=== PATIENT | female | born 1995 | race Caucasian/White ===

== ENCOUNTER → 2017-11-17 10:52 | Outpatient (CLI) | payer OTHER, MEDICAID, SELFPAY | PROVIDERS: Family Provider Family Medicine; PCP Family Medicine | DX: H53.133 Sudden visual loss, bilateral (principal) | CPT/HCPCS: 93225; 93226 ==

== ENCOUNTER 2017-12-15 17:06 | Emergency (ER) | payer OTHER, MEDICAID, SELFPAY ==
[2017-12-15 17:07] VITALS: BP 144/88; PULSE 109; RESP 24; TEMP 36.6; O2SAT 100; BMI 22.8
[2017-12-15 18:14] LABS: Absolute Lymphocyte Count 4.53 X10^3/ul (0.83-4.51); Absolute Neutrophil Count 6.1 X10^3/uL (2.0-7.7); Basophil# 0.07 X10^3/uL; Basophil% 0.6 % (0-1); Eosinophil# 0.09 X10^3/uL; Eosinophils% 0.8 % (0-5); Hematocrit 34.9 % (37-47); Hemoglobin 11.9 g/dl (12.0-15.0); Lymphocyte # 4.53 X10^3/ul (4.0); Lymphocyte % 38.1 % (19-41); Mean Corp Hgb Conc 34.1 g/gl (32-36); Mean Corpuscular Hgb 28.9 pg (27.0-32.0); Mean Corpuscular Volume 84.7 fL (81-99); Mean Platelet Vol. 8.6 fl (6.2-12.0); Monocyte# 1.11 X10^3/uL; Monocyte% 9.3 % (0-10); Neutrophil # 6.08 X10^3/uL (2.7-7.7); Neutrophil % 51.1 % (47-70); POSITIVE COUNT NO; POSITIVE DIFFERENTIAL NO; POSITIVE MORPHOLOGY NO; Platelet Count 387 K/mm3 (150-450); RBC Distribution Width CV 12.8 % (11.6-14.6); RBC Distribution Width SD 39.1 fl (35.1-43.9); Red Blood Count 4.12 M/mm3 (4.2-5.4); White Blood Count 11.9 K/mm3 (4.4-11.0)
[2017-12-15 18:25] LABS: Color, Urine Yellow (Yellow); Glucose, Dipstick Normal (Normal); Leukocyte Esterase-Dipstick 500 /ul (Negative); Nitrite-Dipstick Positive (Negative); Occult Blood-Urine 25 /ul (Negative); Protein-Dipstick 30 mg/dl (Negative); Specific Gravity, Urine 1.025 (1.002-1.030); Urine Bilirubin Dipstick Negative (Negative); Urine Clarity Cloudy (Clear); Urine Urobilinogen 1 mg/dl (Normal)
[2017-12-15 18:26] LABS: Anion Gap 11 (5-15); BUN 14 mg/dL (7-18); BUN/Creat Ratio 18.3 RATIO (10-20); Calcium,Total 9.1 mg/dL (8.5-10.1); Chloride 105 mmol/L (98-107); Creatinine, Serum 0.76 mg/dL (0.55-1.02); EST Glomerular Filtration Rate 100 mL/min (>60); Est Glom Filt Rate - Afr Amer 121 mL/min (>60); Estimated Creatinine Clearance 87.62 ml/min; Glucose 60 mg/dL (74-106); Potassium 3.1 mmol/L (3.5-5.1); Sodium Level 137 mmol/L (136-145)
[2017-12-15 18:33] LABS: Ketone-Dipstick 150 mg/dl (Negative); Pregnancy, Serum, hCG Quali. NEGATIVE Negative (0-9 Nonpreg)
[2017-12-15 18:42] LABS: Bacteria 2+ /hpf (None Seen); Mucous, Urine 3+ /hpf (<or=2+); Red Blood Cells-Urine 0-5 SEEN /hpf (0-5); Squamous Epithelial Cells - UA 0-5 SEEN /hpf (5-10); White Blood Cells 50-100 SEEN /hpf (0-5); Yeast-Urine RARE /hpf (None Seen)
[2017-12-15 18:50] LABS: Amphetamine Urine VISTA POSITIVE (<1000 ng/mL); Barbiturate Urine VISTA NEGATIVE (< 200 ng/mL); Benzodiazepine Urine VISTA NEGATIVE (< 200 ng/mL); Cocaine Urine VISTA NEGATIVE (< 300 ng/mL); Ecstacy Urine VISTA POSITIVE (< 500 ng/mL); Methadone Urine VISTA NEGATIVE (< 300 ng/mL); PCP Urine VISTA NEGATIVE (< 25 ng/mL); THC Urine VISTA POSITIVE (< 50 ng/mL); Vista UDS pH Range 5
--- NOTE | 2017-12-15 19:00 | ED.RN ---
LINDA CALLED FROM CRISIS. SHE STATED SHE WILL BE HERE TO SEE PT SOON.
--- NOTE | 2017-12-15 21:04 | ED.VISSUMM ---
- ER Visit Summary Date of Service: 12/15/17 Chief Complaint: Depression History of Present Illness: The patient is a 22 F who presents with depression that became worse today. Patient states she was having thoughts of suicide today. Patient denies any specific plan for suicide. Patient states she became upset because she has relapsed on drugs. Patient states her dad came over today and took her child. Patient states this upset her and caused her to become depressed. Patient denies any auditory or visual hallucinations. Physical Examination: Vital signs are stable. Patient is afebrile. Patient is in no acute distress. Oral mucosa is pink and moist. Heart was regular and tachycardic. Lungs are clear and equal bilaterally. Cranial nerves II through XII are intact. There are no focal motor or sensory deficits noted. Patient has a depressed mood and flat affect. Patient is tearful on examination. Patient admits to suicidal ideations but denies any plan for suicide. Test Results: CBC showed a mild leukocytosis of 11.9. Potassium slightly low at 3.1. Urinalysis shows evidence of a urinary tract infection. Urine tox screen positive for opiates, amphetamines, MDMA, and THC. Serum alcohol level was normal. Emergency Department Course and Treatment: Patient was given a prescription for Bactrim. Crisis counselor was in to evaluate the patient. She was able to have the patient contract for safety. Patient will be discharged to the care of her family. Outpatient follow-up was arranged by the crisis counselor. Patient understood and was agreeable with the plan. All questions were answered. Disposition: Discharge home Impression: Depression, urinary tract infection, substance abuse This note was generated with [employer] dictation software. It may contain incorrect words, spelling, and punctuation that were not noted in review of the chart prior to signing ED Disposition - Plan for ED Patient: Disposition: Home or Assisted Living Chief Complaint: Suicidal Diagnosis: Depression, Substance abuse, Urinary tract infection Instructions: ED Depression, ED Drug Abuse General Prescriptions: Smz/Tmp Ds [Bactrim Ds] 1 tab PO BID #6 tab Referrals: Cirilo Saldivar MD [Primary Care Provider] -
[2017-12-15 21:12] VITALS: BP 115/91; PULSE 93; RESP 18; O2SAT 96
== END 2017-12-15 21:12 | disposition home or self-care (01) ==
PROVIDERS: Emergency Provider Emergency Medicine; Family Provider Family Medicine; PCP Family Medicine
DX: F31.9 Bipolar disorder, unspecified (principal); F41.9 Anxiety disorder, unspecified; N39.0 Urinary tract infection, site not specified; B96.89 Other specified bacterial agents as the cause of diseases classified elsewhere; F11.10 Opioid abuse, uncomplicated; F15.10 Other stimulant abuse, uncomplicated; F12.10 Cannabis abuse, uncomplicated; Z72.0 Tobacco use
CPT/HCPCS: 80048; 80307; 80320; 81001; 84703; 85025; 99283; G0480

== ENCOUNTER 2018-01-04 18:34 | Emergency (ER) | payer OTHER, MEDICAID, SELFPAY ==
[2018-01-04 18:35] VITALS: BP 121/69; PULSE 120; RESP 24; TEMP 37.1; O2SAT 99; BMI 21.0
--- NOTE | 2018-01-04 20:21 | ED.RN ---
Pt states she is tired of waiting,will go to another facility. pt left without being seen by a physician.
== END 2018-01-04 20:24 | disposition left against medical advice (07) ==
PROVIDERS: Emergency Provider Emergency Medicine; Family Provider Family Medicine; PCP Family Medicine
DX: R69 Illness, unspecified (principal)

== ENCOUNTER → 2018-01-26 17:37 | Outpatient (CLI) | payer OTHER, MEDICAID, SELFPAY ==
[2018-02-01 13:13] LABS: HPV Reflexed? NOT INDICATED
== END ==
PROVIDERS: Referring Provider Obstetrics & Gynecology; Visit Provider Obstetrics & Gynecology
DX: Z12.4 Encounter for screening for malignant neoplasm of cervix (principal)
CPT/HCPCS: 88175; G0145

== ENCOUNTER 2018-06-25 21:05 | Emergency (ER) | payer MEDICAID, SELFPAY ==
[2018-04-18 11:48] VITALS: BMI 20.7
[2018-06-25] VITALS (7 sets, daily range): BP systolic 106–120; BP diastolic 57–84; PULSE 78–102; RESP 9–20; TEMP 36.7; O2SAT 89–100; BMI 21.9
--- NOTE | 2018-06-25 21:07 | ED.VISSUMM ---
- ER Visit Summary Date of Service: 06/25/18 Chief Complaint: Heroin History of Present Illness: The patient is a 23 F who admits to heroin. Apparently she was somnolent and the boyfriend and mother called EMS, the Laxson was not given since the patient was mostly alert. I was able to communicate with her quite well. She denies any suicidal ideations. She denies fever or chills, this was inadvertent, apparently she has been struggling with addiction for the past 2 years. Physical Examination: As is my usual practice with overdoses a full physical examination was done. Patient has no heart murmur. She has no track sweeney on her antecubital regions. She has no skin rash or petechiae. She has clear lungs bilaterally she has a soft abdomen and a normal exam otherwise see template. Emergency Department Course and Treatment: Patient will be observed in the emergency department. When she is fully lucid and coherent she will be discharged in stable condition. I discussed with her the importance of getting treatment. Discharge stable condition Impression: Heroin abuse This note was generated with [employer] dictation software. It may contain incorrect words, spelling, and punctuation that were not noted in review of the chart prior to signing ED Disposition - Plan for ED Patient: Disposition: Home or Assisted Living Instructions: ED Overdose Accidental Referrals: Sly Liu MD [Primary Care Provider] - 3-5 Days
[2018-06-25] MEDS: Ondansetron 4 MG/2 ML Vial IV (21:22)
[2018-06-25] MEDS: Naloxone 0.4 MG/ML Syringe IV (21:23)
--- NOTE | 2018-06-25 21:26 | ED.RN ---
PT RESPIRATIONS IMPROVING. PT ABLE TO KEEP EYES OPEN LONGER. PT CALM AND COOPERATIVE. PT VERY APOLOGETIC
--- NOTE | 2018-06-25 21:55 | ED.RN ---
MOM AND FRIEND? AT THE BEDSIDE. PATIENT IS ALERT AND REMAINS TEARFUL.
--- NOTE | 2018-06-25 22:58 | ED.RN ---
patient is sating low 90's without o2 when she falls asleep. DR. PLAZA MADE AWARE AND SAID TO WATCH HER TILL MIDNIGHT.
--- NOTE | 2018-06-25 23:04 | ED.RN ---
PT UNABLE TO STAY AWAKE AND ALERT WHEN BEING SPOKEN TO. PT CLOSES EYES AND SLUMPS INTO BED. PT 02 DESATS 90-89% WHEN SLEEPING. PT AWAKENS EASILY TO VERBAL STIMULI. DR. PLAZA INFORMED AND ORDERS TO OBSERVE PT LONGER BEFORE DISCHARGING.
--- NOTE | 2018-06-25 23:07 | ED.RN ---
PT PLACED BACK ON NASAL CANNULA 2L AND SATTING 96%. WILL CONTINUE TO MONITOR.
--- NOTE | 2018-06-25 23:57 | ED.RN ---
I TRIED TO TAKE PATIENT OFF OF O2 AGAIN AND SHE DROPPED TO 89% ON RA WHEN SHE FELL BACK TO SLEEP. HER RESPS DROP TO 9 AT TIMES WHEN SHE IS SLEEPING TOO. WE WILL CONTINUE TO OBSERVE HER.
--- NOTE | 2018-06-25 23:59 | ED.RN ---
I TOLD PATIENT'S MOM TO GO AHEAD AND GO HOME AND WE WOULD CALL HER WHEN SHE IS ABLE TO BE DISCHARGED.
[2018-06-26 00:07] VITALS: BP 114/72; PULSE 75; RESP 15; O2SAT 99
[2018-06-26 01:04] VITALS: BP 102/69; PULSE 91; RESP 12; O2SAT 97
[2018-06-26 01:28] VITALS: O2SAT 88
[2018-06-26 01:29] VITALS: O2SAT 97
[2018-06-26 03:00] VITALS: BP 111/61; PULSE 93; RESP 16; O2SAT 94
--- NOTE | 2018-06-26 03:10 | ED.RN ---
PATIENT WAS ABLE TO WALK AROUND THE DEPARTMENT AND GO TO THE RESTROOM WITH STAND BY ASSISTANCE ONLY. SHE AMBULATED WELL. SHE DRESSED HERSELF, AND IS DRINKING APPLE JUICE. SHE IS ABLE TO STAY AWAKE IN HER ROOM. I BELIEVE SHE IS ABLE TO GO HOME. HER MOM IS ON HER WAY TO GET HER. DISCHARGE INSTRUCTIONS WERE GIVEN.
== END 2018-06-26 03:31 | disposition home or self-care (01) ==
LOC: ED 21:32
PROVIDERS: Emergency Provider Emergency Medicine; Family Provider Pediatrics; PCP Pediatrics
DX: F11.10 Opioid abuse, uncomplicated (principal)
CPT/HCPCS: 96374; 96375; 99284; J7030; A4216; J2310; J2405

== ENCOUNTER 2018-07-24 10:45 | Emergency (ER) | payer MEDICAID, SELFPAY ==
[2018-06-25 21:06] VITALS: BMI 21.9
[2018-07-24 10:45] VITALS: BP 105/57; PULSE 125; RESP 16; TEMP 36.6; O2SAT 100; BMI 19.5
[2018-07-24 10:47] VITALS: BP 105/57; PULSE 125; RESP 16; TEMP 36.6; O2SAT 100
--- NOTE | 2018-07-24 11:21 | CT_ITS ---
STUDY: CT ABDOMEN AND PELVIS WITHOUT CONTRAST REASON FOR EXAM: Female, 23 years old. Right flank pain. Painful urination. RADIATION DOSAGE (If Supplied By Facility): CTDIvol = ( 6.04 ) mGy, DLP = ( 295.97 ) mGycm TECHNIQUE: Transaxial images were obtained from the dome of the diaphragm to the symphysis pubis without oral contrast, and without intravenous contrast. Sagittal and coronal images were reconstructed. Individualized dose optimization techniques were used for this CT. COMPARISON: January 14, 2016 FINDINGS: The visualized lung bases are unremarkable. The visualized portions of the heart are within normal limits. There is hepatomegaly with diffuse hepatic enlargement. Normal gallbladder and extrahepatic biliary system. Normal spleen. Normal pancreas. Normal bilateral adrenal glands. There are 0.2 cm calcifications of the upper and lower pole of the right kidney. There is perinephric and periureteral stranding. Normal left kidney. There is 0.4 cm left pelvic calcification with phlebolith versus distal ureteral stone. Normal visualized stomach. Normal small intestine. Normal colon. The appendix is visualized and appears normal. Normal abdominal aorta. Normal inferior vena cava. Normal retroperitoneum. Normal urinary bladder. Normal visualized uterus. There is no free fluid in the abdomen or pelvis. There is tampon in the vagina. Normal abdominal wall. Normal osseous structures. CT/Abdomen/Pelvis without Cont IMPRESSION: Right renal stones with periureteral and perinephric stranding. Left pelvic calcification with phleboliths versus ureteral stone. Electronically Signed: Stiven Morel MD at 12:54 EDT , Service support ,
--- NOTE | 2018-07-24 11:24 | ED.DCSUM_ITS ---
- ER Visit Summary Date of Service: 07/24/18 Chief Complaint: Right flank pain History of Present Illness: The patient is a 23 F who presents with right flank pain that began yesterday. Patient states she has a history of kidney stones. Patient states this feels similar to prior kidney stones. Patient states her pain is sharp. Patient states nothing makes the pain better or worse. Patient admits to some nausea and vomiting. Patient states she has had approximately 10 episodes of vomiting. Patient denies any hematemesis or coffee-ground emesis. Patient also admits to watery diarrhea. Patient admits to some burning with urination but denies any hematuria. Patient denies any fevers. Physical Examination: Vital signs are stable. Patient is afebrile. Patient is in no acute distress. Oral mucosa is pink and moist. Neck is supple. Trachea is midline. There is no JVD noted. Heart was regular rate and rhythm. Lungs are clear and equal bilateral. Abdomen is soft. Bowel sounds are normal. There is some right upper quadrant tenderness. There is right CVA tenderness. There is no rebound or guarding noted. Cranial nerves II through XII are intact. There are no focal motor or sensory deficits noted. The remaining physical exam is within normal limits. Test Results: Urinalysis shows leukocyte esterase of 500, 50-100 white blood cells, and 2+ bacteria. Urine hCG was negative. CT scan of the abdomen and pelvis was obtained. There are right renal stones with periureteral and perinephric stranding. There is no ureteral calculi noted. Emergency Department Course and Treatment: Patient was given IV fluids, Toradol, and Zofran. Patient was feeling better on reevaluation. Patient was given a dose of Cipro here. Patient was given a prescription for Cipro. Patient was instructed to drink plenty of fluids. Patient was instructed to follow-up with her primary care physician in 5-7 days. Patient understood and was agreeable with the plan. All questions were answered. Disposition: Discharge home Impression: Pyelonephritis This note was generated with [employer] dictation software. It may contain incorrect words, spelling, and punctuation that were not noted in review of the chart prior to signing ED Disposition - Plan for ED Patient: Disposition: Home or Assisted Living Diagnosis: Pyelonephritis Instructions: ED Kidney Infec Female Prescriptions: Ciprofloxacin [Cipro] 500 mg PO BID #20 tab Referrals: Bakari Thornton DO [Primary Care Provider] - 3-5 Days
[2018-07-24 11:31] LABS: Mucous, Urine 0 SEEN /hpf (<or=2+)
[2018-07-24 11:33] LABS: Color, Urine Yellow (Yellow); Glucose, Dipstick Normal (Normal); Ketone-Dipstick 15 mg/dl (Negative); Leukocyte Esterase-Dipstick 500 /ul (Negative); Nitrite-Dipstick Positive (Negative); Occult Blood-Urine 150 /ul (Negative); Protein-Dipstick 500 mg/dl (Negative); Urine Bilirubin Dipstick Negative (Negative); Urine Clarity Clear (Clear); Urine Urobilinogen 1 mg/dl (Normal)
[2018-07-24 11:39] LABS: Bacteria 2+ /hpf (None Seen); Red Blood Cells-Urine 5-10 SEEN /hpf (0-5); White Blood Cells 50-100 SEEN /hpf (0-5)
[2018-07-24 11:40] LABS: Squamous Epithelial Cells - UA 0-5 SEEN /hpf (5-10)
[2018-07-24] MEDS: 0.9% Normal Saline 1,000 ML 250 ML IV (11:47)
[2018-07-24] MEDS: Ketorolac 30 MG/ML Syringe IV (11:47)
[2018-07-24] MEDS: Ondansetron 4 MG/2 ML Vial IV (11:47)
[2018-07-24 12:30] LABS: Pregnancy, Serum, hCG Quali. NEGATIVE Negative (0-9 Nonpreg)
[2018-07-24 14:28] VITALS: BP 106/61; PULSE 113; RESP 18; O2SAT 96
[2018-07-24] MEDS: Ciprofloxacin 250 MG Tablet 500 MG PO (14:29)
--- NOTE | 2018-07-24 14:31 | ED.RN ---
IV DC'ED, CATHETER INTACT, SMALL GAUZE DRESSING PLACED. DISCHARGE INSTRUCTIONS GIVEN TO AND REVIEWED WITH PATIENT, PATIENT DENIES QUESTIONS OR CONCERNS AND VOICES UNDERSTANDING OF DISCHARGE INSTRUCTIONS. PT AMBULATES OUT OF ROOM WITHOUT DIFFICULTY.
== END 2018-07-24 14:32 | disposition home or self-care (01) ==
PROVIDERS: Emergency Provider Emergency Medicine; Family Provider Pediatrics; PCP Pediatrics
DX: N12 Tubulo-interstitial nephritis, not specified as acute or chronic (principal); Z87.442 Personal history of urinary calculi; F12.10 Cannabis abuse, uncomplicated; F11.10 Opioid abuse, uncomplicated; F15.10 Other stimulant abuse, uncomplicated; Z72.0 Tobacco use
CPT/HCPCS: 74176; 81001; 84703; 87086; 87088; 87186; 96361; 96374; 96375; 99284; J7030; A4216; J2405

== ENCOUNTER 2019-01-20 13:31 | Emergency (ER) | payer MEDICAID, SELFPAY ==
[2019-01-20 13:34] VITALS: BP 113/75; PULSE 135; RESP 18; TEMP 36.7; O2SAT 95; BMI 21.9
--- NOTE | 2019-01-20 15:10 | RAD_ITS ---
STUDY: X-RAY CHEST REASON FOR EXAM: Female, 23 years old. Heroin overdose. TECHNIQUE: PA and lateral views of the chest. COMPARISON: Comparison is made with prior study dated January 24, 2017. FINDINGS: The lungs are clear and expanded. There is no demonstrated pleural abnormality. Normal size heart. Normal mediastinum and michael. Normal visualized pulmonary arteries. Normal visualized aortic arch and descending thoracic aorta. Normal visualized thoracic spine. Dextroscoliosis of the visualized lumbar spine There is no demonstrated abnormality of the visualized soft tissue structures of the upper abdomen. RAD/Chest PA and Lateral IMPRESSION: The lungs are clear. Electronically Signed: Jovani Hauser, at 15:23 EDT , Service support ,
--- NOTE | 2019-01-20 15:33 | ED.DCSUM_ITS ---
- ER Visit Summary Date of Service: 01/20/19 Chief Complaint: Overdose History of Present Illness: The patient is a 23 F who has a history of opioid abuse. She was clean for 5 months. She recently ran into an old friend and used again today. She remembers waking up for EMS. They gave intranasal and then IV Narcan. Patient is not having any symptoms now. Denies any suicidal or homicidal thoughts. She does report a cough which has been going on for about 2 weeks. Associated with stuffy nose. Concern for bronchitis. Physical Examination: Afebrile and vital signs unremarkable except for heart rate of 135. Patient is tearful and depressed. Heart tachycardic but regular. Lungs clear. Abdomen soft. Skin appears normal. Test Results: Chest x-ray was normal. Emergency Department Course and Treatment: Patient was observed for over an hour. She had no respiratory depression or mental status changes. She is established with 180 and will follow-up as an outpatient. Azithromycin for cough for 3 weeks. Treatment Plan: As above Disposition: Discharged Impression: 1. Opioid overdose 2. Bronchitis This note was generated with [employer] dictation software. It may contain incorrect words, spelling, and punctuation that were not noted in review of the chart prior to signing ED Disposition - Plan for ED Patient: Referrals: Cirilo Saldivar MD [Primary Care Provider] -
--- NOTE | 2019-01-20 15:37 | ED.DEP ---
ED Disposition - Plan for ED Patient: Instructions: Opiate Abuse Prescriptions: Azithromycin [Zithromax Z-Bharath] 250 mg PO UD #1 box Prescription Printed Referrals: Cirilo Saldivar MD [Primary Care Provider] -
[2019-01-20 15:46] VITALS: BP 115/76; PULSE 101; RESP 16; O2SAT 99
== END 2019-01-20 15:47 | disposition home or self-care (01) ==
LOC: ED 15:09
PROVIDERS: Emergency Provider Emergency Medicine; Family Provider Family Medicine; PCP Family Medicine
DX: T40.2X1A Poisoning by other opioids, accidental (unintentional), initial encounter (principal); R40.20 Unspecified coma; F11.10 Opioid abuse, uncomplicated; Y92.9 Unspecified place or not applicable; J40 Bronchitis, not specified as acute or chronic; Z72.0 Tobacco use
CPT/HCPCS: 71046; 99284; J7030

== ENCOUNTER 2020-02-12 15:39 | Observation (INO) | payer MEDICAID, SELFPAY ==
[2020-01-15 11:43] VITALS: BMI 21.9
[2020-02-12 15:39] VITALS: BP 114/75; PULSE 97; RESP 16; TEMP 36.3; O2SAT 99; BMI 20.1
--- NOTE | 2020-02-12 16:01 | ED.DCSUM_ITS ---
History of Present Illness Chief Complaint: Substance Abuse Detail of Chief Complaint: IV heroin use and methamphetamine use Informant: Patient Onset: Month(s) Context: Sudden Onset Timing: Intermittent Quality: Heroin use for 5 years methamphetamine use 3.5 years Location: IV Current Severity: Mild Maximum Severity: Moderate Worsened by: Abstinence Relieved by: Using Associated Symptoms: Recently no associated symptoms Narrative: Patient is a 24-year-old AB 0 female who does not have menstrual periods due to Depo-Provera injection who presents for detox. She states she is been using IV heroin for approximately 5 years. She did go in a detox program 3+ years ago. She also has been using methamphetamine for 3 to 3.5 years. She denies history of rheumatic heart disease, murmur, SBE or being immune sup pressed. She states her last HIV test was negative. She is positive for hepatitis C. Her last used was last evening at 2300. Her child is with her aunt. She states she is getting help because she can no longer live like this. Presently she has no constitutional symptoms. She denies any respiratory or cardiac symptoms. She denies GI or symptoms. Prior similar symptoms: Yes - 3+ years ago Recent Illness/Hospitalization: No - Past Medical History (1) Illicit drug use, continuous Status: Acute Past Medical History - Allergies and Home Meds Allergies/Adverse Reactions: Allergies No Known Allergies Allergy (Verified 02/12/20 15:41) Primary Care Physician: Cirilo Saldivar MD [Primary Care Provider] - Prior records reviewed: Yes Surgical History: noncontributory Lives: With Family Smoking Status: Current every day smoker Alcohol: None Drugs: Heroin, - - Methamphetamine Review of Systems General: Reports: Malaise. Denies: Chills, Fever, Subjective, Sweats Eyes: Denies: Visual changes - bilaterally, Blurred Vision - bilaterally ENT: Denies: Rhinorrhea, Sore throat Cardiovascular: Denies: Chest pain, Palpitations Respiratory: Denies: Dyspnea, Cough, Dyspnea on exertion Gastrointestinal: Denies: Abdominal pain, Nausea, Vomiting, Diarrhea Genitourinary: Denies: Dysuria, Hematuria, Frequency Musculoskeletal: Denies: Myalgias, Arthralgias, Neck pain, Back pain Skin: Reports: Rash, Wounds - Patient picks at her skin. Denies: Abscess, Abrasions Neurological: Denies: Headache, Weakness Psych: Reports: Depression. Denies: Suicidal thoughts Hematologic: Denies: Easy bruising, Easy bleeding Allergy: Denies: Uticaria, Swelling of the mouth Physical Exam Vital Signs/Narrative: Vital Signs Temp Pulse Resp BP Pulse Ox 02/12/20 15:39 97.4 F L 97 16 114/75 99 Inital Vital Signs reviewed: Yes General: Well nourished, Well developed, No Acute Distress Head: Normocephalic, Atraumatic, - - Couple scabs due to picking. Eyes: Perrl, EOMI. Negative for: Pale conjunctiva, Scleral icterus ENT: Moist mucous membranes, No rhinorrhea, TM's clear Neck: Supple, Nontender, No lymphadenopathy, No JVD Cardiovascular: Regular rate, Regular rhythm, No murmurs, Normal S1, Normal S2 Respiratory: No distress Abdomen: Soft, Nontender, Nondistended, Normal bowel sounds Rectal: Deferred Back: Nontender, Normal Inspection Extremities: Nontender, No edema, - - Tirado noted both upper extremities without evidence of infection Skin: Normal color, No rash Neurological: Alert, Oriented x3, Cranial nerves II-XII grossly intact, Normal Strength, Normal Sensation, Normal DTR Psychological: Depressed Diagnostic/Tx/Re-eval Laboratory Results 02/12/20 02/12/20 02/12/20 16:20 16:25 16:25 Sodium 141 Potassium 3.7 Chloride 109 H Carbon Dioxide 29.0 Anion Gap 3 L BUN 10 Creatinine 0.63 Estim Creat Clear Calc 108.47 Est GFR (MDRD) Af Amer 147 Est GFR (MDRD) Non-Af 122 BUN/Creatinine Ratio 15.8 Glucose 71 L Calcium 8.9 Total Bilirubin 0.30 AST 19 ALT 22 Alkaline Phosphatase 90 Total Protein 7.3 Albumin 3.3 Globulin 4.0 Albumin/Globulin Ratio 0.8 L Urine Opiates Screen POSITIVE H Urine Methadone Screen NEGATIVE Ur Barbiturates Screen NEGATIVE Ur Phencyclidine Scrn NEGATIVE Ur Amphetamines Screen POSITIVE H U Methamphetamin-MDMA NEGATIVE U Benzodiazepines Scrn NEGATIVE Urine Cocaine Screen NEGATIVE U Cannabinoids Screen POSITIVE H Ur Drug Screen Comment Ethyl Alcohol 15.0 Tox screen is positive for opiates, amphetamines and cannabis. Blood work is un remarkable. Hospitalist was paged for admission for detox from heroin and methamphetamine - Medical Decision Making Addiction medicine order set was initiated. Patient was treated with Zofran and doxycycline. ED Disposition - Plan for ED Patient: Disposition: Acute Care Hospital [facility] Diagnosis: Heroin use, Methamphetamine use Referrals: Cirilo Saldivar MD [Primary Care Provider] -
[2020-02-12] MEDS: Dicyclomine 10 MG Capsule 20 MG PO (16:09)
[2020-02-12] MEDS: Ondansetron ODT 4 MG Tablet PO (16:09)
--- NOTE | 2020-02-12 16:56 | CM.ED ---
Addendum entered by Shelly Billings 02/12/20 18:09: Spelling error: Heroine to be corrected as Heroin. Original Note: Social Work Consult: Substance Abuse Informant: Self Referral Met with patient in room. Introduced self and director of social work role. Patient agreeable to speak with this director of social work. Patient reports to be seeking detox. Patient seeking medical management of withdrawal symptoms. Patient reports to have gone through a detox last year and to have stayed at [facility] with [facility] in the past. Patient reports substance of choice as Heroine and Meth. Patient reports last Heroine use was last night and Meth use was three days ago. Patient repots to be homeless for the past month as patient grandmother was not okay with patient continuing to live in grandmothers home due to the substance abuse. Patient reports to have family support if/when patient is sober. Patient reports main reason for seeking detox is just tired of it. Patient reports history of Anxiety and Depression. Patient reports to suppose to be on medications. Patient reports active counseling through [facility]. Patient denies any history of or active suicidal thoughts. This director of social work completed chart review and noted that patient has a 4 year old daughter, Mikel Garcia. This director of social work broached topic of Mikel. Patient confirming to have a daughter names Mikel and to currently have custody. Patient reports that there is an open children services case through [facility] Children services and Ying Townsend is case consultant. This director of social work inquiring about the current location of Mikel. Patient reports that Mikel is currently with my Aunt, Marilee Lucero. Patient providing address and contact number for Marilee as [address] [place] [address] and P: [phone]. Patient denies substance abuse in front of Mikel and to have last sen Mikel this past Wednesday. Telephone call to Marilee Hunt confirming to have Mikel and that children services is aware of current location of Mikel. Marilee reports to be a support for Mikel. Marilee with positive affect over phone. This director of social work able to hear a child pleasantly playing in the background during phone conversation. Will contact children services during business hours due to no immediate concerns of child safety. Jazz VALENCIA, KASEY
[2020-02-12 17:02] LABS: ALB/GLOB Ratio 0.8 RATIO (0.9-2.4); AST(SGOT) 19 U/L (15-37); Alanine Aminotransfer ALT/SGPT 22 U/L (13-56); Albumin, Serum 3.3 g/dL (3.2-5.0); Alkaline Phosphatase 90 U/L (45-117); Anion Gap 3 (5-15); BUN 10 mg/dL (7-18); BUN/Creat Ratio 15.8 RATIO (10-20); Calcium,Total 8.9 mg/dL (8.5-10.1); Chloride 109 mmol/L (98-107); Creatinine, Serum 0.63 mg/dL (0.55-1.02); EST Glomerular Filtration Rate 122 mL/min (>60); Est Glom Filt Rate - Afr Amer 147 mL/min (>60); Estimated Creatinine Clearance 108.47 ml/min; Glucose 71 mg/dL (74-106); Potassium 3.7 mmol/L (3.5-5.1); Protein, Total 7.3 g/dL (6.4-8.2); Sodium Level 141 mmol/L (136-145)
[2020-02-12 17:16] LABS: Amphetamine Urine VISTA POSITIVE (<1000 ng/mL); Barbiturate Urine VISTA NEGATIVE (< 200 ng/mL); Benzodiazepine Urine VISTA NEGATIVE (< 200 ng/mL); Cocaine Urine VISTA NEGATIVE (< 300 ng/mL); Ecstacy Urine VISTA NEGATIVE (< 500 ng/mL); Methadone Urine VISTA NEGATIVE (< 300 ng/mL); PCP Urine VISTA NEGATIVE (< 25 ng/mL); THC Urine VISTA POSITIVE (< 50 ng/mL); Vista UDS pH Range 7
[2020-02-12 17:39] VITALS: BP 110/78; PULSE 100; RESP 16; O2SAT 97
--- NOTE | 2020-02-12 17:50 | HP.PCM_ITS ---
Problem List (1) Acute opioid withdrawal Status: Acute (2) Migraine headache Status: Chronic (3) Depression Status: Chronic (4) Polysubstance abuse Status: Chronic (5) Heroin use Status: Chronic (6) Methamphetamine use Status: Chronic History of Present Illness Date of Admission: 02/12/20 Chief Complaint: Acute opiate withdrawal. The patient is a 24 year old F with past medical history as mentioned above presented to the emergency room requesting admission for acute opioid withdrawal for medical stabilization. Patient states that she has been using IV heroin and methamphetamines daily over the last several months but she has been using those IV drugs on and off over the last 5 years. She was admitted to another facility for acute opioid withdrawal 1 year ago but she relapsed. Her last use of IV heroin was last night at 11 PM. Today, she came to the emergency department with symptoms of body aches, body pains as well as restlessness and anxiety and without aggravating or relieving factors. She mentioned that her symptoms star lynn this morning. History of depression and she has been on Paxil. She had a history of migraine headache and she has been on Topamax which has been under control. History of tobacco abuse and she smokes about 1 pack daily. In the emergency department, her vital signs are stable. BMP was unremarkable as well as LFTs. Urine drug screen was positive for opioids, vitamins and cannabinoids. Blood alcohol level was 15. She is being admitted for acute opioid withdrawal for medical stabilization. Past Medical History Past Medical History (Chronic Problems): Chronic Problems (Last Reviewed 10/23/19 @ 11:03 by Gill Varela) Migraine headache (Chronic) Depression (Chronic) Polysubstance abuse (Chronic) Heroin use (Chronic) Methamphetamine use (Chronic) Medical History: Medical History (Last Reviewed 10/23/19 @ 11:03 by Gill Varela) Anxiety F41.9 Allergies No Known Allergies Allergy (Verified 02/12/20 15:41) Home Medications: Ambulatory Orders Medication Instructions Recorded paroxetine HCl 40 mg tablet 40 mg PO DAILY 03/02/19 medroxyprogesterone 150 mg/mL 150 mg IM [id number] #1 ml 10/23/19 intramuscular syringe topiramate 100 mg tablet 100 mg PO DAILY 10/23/19 Surgical History: noncontributory Psychiatric History: Depression GENERAL INTERNIST History: No pertinent GENERAL INTERNIST history Lives: With Family Smoking Status: Current every day smoker Tobacco Use: Cigarettes Alcohol: None Drugs: Heroin, - - Methamphetamine - *Family History Maternal History Items: No pertinent history Paternal History Items: No pertinent history Review of Systems Constitutional: Reports: Malaise. Denies: Anorexia, Chills, Fever, Weakness Eyes: Denies: Blurred vision, Double vision, Drainage, Vision Change HEENT: Denies: Difficulty Hearing, Ear Pain, Eye Pain, Nasal Congestion, Sore Throat Cardiovascular: Denies: Chest Pressure, Edema, Heaviness, Palpitations, Syncope Respiratory: Denies: Cough, Pleuritic Pain, Shortness of Breath, Sputum production, Wheezing Gastrointestinal: Denies: Abdominal Pain, Constipation, Diarrhea, Nausea, Vomiting Genitourinary: Denies: Dysuria, Frequency, Hematuria Musculoskeletal: Denies: Arm Pain, Back Pain, Foot Pain Skin: Denies: Dryness, Rash Neurological: Reports: Tremor. Denies: Balance problems, Double vision, Slurred speech, Confusion, Headaches, Incoordination, Numbness Psychiatric: Reports: Depression. Denies: Anxiety Endocrine: Denies: Change in Body Habitus, Polydipsia, Polyuria VTE Information - Inpt Only VTE Present on Admission: No VTE Mechan Device Prophylaxis: None VTE Pharm Prophylaxis ordered?: No Patient Problems: Active and Suspected Problems (Last Reviewed 10/23/19 @ 11:03 by Gill Vaerla) Acute opioid withdrawal (Acute) - Physical Exam Vitals/I&O's: Vital Signs Temp Pulse Resp BP Pulse Ox 97.4 F L 97 16 114/75 99 02/12/20 15:39 02/12/20 15:39 02/12/20 15:39 02/12/20 15:39 02/12/20 15:39 Oxygen Delivery Method Room Air Weight: 110 lb 0.171 oz Body Mass Index (BMI) 20.1 General: Alert, Oriented x3, Cooperative, No apparent distress HEENT: Atraumatic, PERRLA, EOMI, Normocephalic Oral: Moist Mucosa, No Gingival or Mucosal Lesions/ Ulcerations Neck: Supple, No JVD, Negative Carotid Bruits, Trachea Midline, Thyroid Normal Size and Texture Lungs: Clear to auscultation, Normal air movement, No rhonchi, No wheeze, No rales Cardiovascular: Regular rate, Regular Rhythm, Normal S1, Normal S2, PMI Normal Abdomen: Bowel Sounds Present, Soft, Non Tender, Non-Distended, No Hepato- splenomegaly Extremities: No clubbing, No cyanosis, No edema Skin: No rashes, No breakdown Lymphatic: No Cervical, Supraclavicular, or Inguinal Adenopathy Neurological: Cranial nerves II-XII grossly intact, Motor Exam 5/5 strength throughout Psych/Mental Status: Normal Affect, Appropriate, Restless, Alert and oriented to time, place, person, mood and affect Laboratory Results 02/12/20 16:20: Urine Opiates Screen POSITIVE H, Urine Methadone Screen NEGATIVE, Ur Barbiturates Screen NEGATIVE, Ur Phencyclidine Scrn NEGATIVE, Ur Amphetamines Screen POSITIVE H, U Methamphetamin-MDMA NEGATIVE, U Benzodiazepines Scrn NEGATIVE, Urine Cocaine Screen NEGATIVE, U Cannabinoids Sc reen POSITIVE H, Ur Drug Screen Comment 02/12/20 16:25: Sodium 141, Potassium 3.7, Chloride 109 H, Carbon Dioxide 29.0, Anion Gap 3 L, BUN 10, Creatinine 0.63, Estim Creat Clear Calc 108.47, Est GFR (MDRD) Af Amer 147, Est GFR (MDRD) Non-Af 122, BUN/Creatinine Ratio 15.8, Glucose 71 L, Calcium 8.9, Total Bilirubin 0.30, AST 19, ALT 22, Alkaline Phosphatase 90, Total Protein 7.3, Albumin 3.3, Globulin 4.0, Albumin/Globulin Ratio 0.8 L 02/12/20 16:25: Ethyl Alcohol 15.0 Assessment/Plan All Active Problems (Last Reviewed 10/23/19 @ 11:03 by Gill Varela) Acute opioid withdrawal (Acute) This is a 24 years old female patient presented to the emergency room requesting admission for acute opiate withdrawal for medical stabilization. #1 acute opiate withdrawal: Patient has been using IV heroin and methamp hetamines daily, last use was last night at 11 PM. BMP and LFT reviewed as above. Urine drug screen was positive for opioids, amphetamines and cannabinoids. Plan: Admit to MedSurg floor, check CBC, serum test, initiate therapeutic Subutex, as needed Catapres, Bentyl, Neurontin, Vistaril, loperamide, methocarbamol, Zofran and trazodone, consult 180 program. #2 depression: Continue Paxil. #3 migraine headaches: Stable, continue Topamax. #4 tobacco abuse: NicoDerm patch. #5 DVT prophylaxis: Low risk patient, no prophylaxis indicated. This note was generated with [employer] dictation software. It may contain incorrect words, spelling, and punctuation that were not noted in checking the note before signing. Inpatient E&M: 60696 Init Hosp L2
[2020-02-12 17:58] VITALS: BP 110/78; PULSE 100; RESP 16; TEMP 36.3; O2SAT 97
--- NOTE | 2020-02-12 18:07 | CM.ED ---
Social Work Telephone call to Ranjeet Black. Updated on patient admission. Jazz Billings MSW, KASEY
[2020-02-12 18:22] VITALS: BMI 19.7
[2020-02-12 18:24] VITALS: BMI 19.8
[2020-02-12 18:43] VITALS: BP 111/72; PULSE 73; RESP 18; TEMP 36.9; O2SAT 98
[2020-02-12 19:37] LABS: Absolute Lymphocyte Count 2.03 X10^3/uL (0.83-4.51); Absolute Neutrophil Count 3.8 X10^3/uL (2.0-7.7); Basophil# 0.05 X10^3/uL; Basophil% 0.7 % (0-1); Eosinophil# 0.17 X10^3/uL; Eosinophils% 2.5 % (0-5); Hematocrit 39.9 % (37-47); Hemoglobin 12.8 g/dL (12.0-15.0); Lymphocyte # 2.03 X10^3/ul (4.0); Mean Corp Hgb Conc 32.1 g/dL (32-36); Mean Corpuscular Hgb 28.2 pg (27.0-32.0); Mean Corpuscular Volume 87.9 fL (81-99); Mean Platelet Vol. 10.1 fl (6.2-12.0); Monocyte# 0.69 X10^3/uL; Monocyte% 10.2 % (0-10); NRBC Flagged by Analyzer 0 % (0-5); Neutrophil % 56.3 % (47-70); Platelet Count 267 K/mm3 (150-450); RBC Distribution Width CV 12.5 % (11.6-14.6); RBC Distribution Width SD 40.5 fl (35.1-43.9); Red Blood Count 4.54 M/mm3 (4.2-5.4); White Blood Count 6.8 K/mm3 (4.4-11.0)
[2020-02-12 19:48] LABS: Internal QC Validated? YES +Cl - CLEAR BKGD; Pregnancy, Serum, hCG Quali. NEGATIVE Negative
[2020-02-12] MEDS: Buprenorphine HCl 2 MG TAB.SUBL SL (20:01)
[2020-02-12] MEDS: Methocarbamol 750 MG Tablet 1500 MG PO (20:50)
[2020-02-12 22:43] VITALS: BP 120/72; PULSE 86; RESP 16; TEMP 36.4; O2SAT 97
[2020-02-13] MEDS: Buprenorphine HCl 2 MG TAB.SUBL SL ×3 (01:46→18:13)
[2020-02-13 02:43] VITALS: BP 115/71; PULSE 75; RESP 16; TEMP 36.8; O2SAT 96
[2020-02-13] MEDS: hydrOXYzine PAM 25 MG Capsule 50 MG PO (07:44)
[2020-02-13] MEDS: Topiramate 100 MG Tablet PO (07:45)
[2020-02-13] MEDS: Paroxetine 20 MG Tablet 40 MG PO (07:45)
[2020-02-13] MEDS: Methocarbamol 750 MG Tablet 1500 MG PO ×2 (07:45→20:05)
[2020-02-13] MEDS: Acetaminophen 500 MG Tablet PO ×2 (07:47→20:05)
[2020-02-13 08:17] VITALS: BP 122/79; PULSE 85; RESP 16; TEMP 36.4; O2SAT 99
--- NOTE | 2020-02-13 09:30 | PN_ITS ---
Patient Problems: Active and Suspected Problems (Last Reviewed 10/23/19 @ 11:03 by Gill Varela) Acute opioid withdrawal (Acute) Reason for Visit: The patient is admitted for acute opioid withdrawal. Objective: Heart rate and blood pressure are controlled. She has a rash all over her body. She has been taking less itching headache. To cover with ewing yellow crust. She denies history of MRSA. Patient is anxious and restless but denies any hallucination. Physical exam General: Alert, Oriented x3, Cooperative HEENT: Atraumatic, PERRLA, EOMI, Normocephalic Oral: No Gingival or Mucosal Lesions/ Ulcerations Neck: Supple, No JVD, Negative Carotid Bruits Lungs: Air entry diminished in bilateral lung bases. No crepitation/rhonchi Cardiovascular: Regular rate, Regular Rhythm, Normal S1, Normal S2, No murmurs Abdomen: Bowel Sounds Present, Soft, Non Tender, Non-Distended : No renal angle tenderness. No suprapubic tenderness. Extremities: No edema, Capillary Refill Less than 3 Seconds Skin: Maculopapular rash all over the body. Most of the movements. Itching Musculoskeletal: No Tenderness to Palpation of Joints or Extremities Neurological: Cranial nerves II-XII grossly intact, Deep Tendon Reflexes 2+/4 and Symmetrical, Neuro grossly intact Psych/Mental Status: Normal Affect, Appropriate. Vitals/I&O's: Vital Signs Temp Pulse Resp BP Pulse Ox 97.6 F L 85 16 122/79 H 99 02/13/20 08:17 02/13/20 08:17 02/13/20 08:17 02/13/20 08:17 02/13/20 08:17 Oxygen Delivery Method Room Air Weight: 108 lb 0.171 oz Body Mass Index (BMI) 19.7 Intake and Output for Last 24 Hours 02/11/20 02/12/20 02/13/20 23:59 23:59 23:59 Intake Total 600 / 600 Balance 600 / 600 Laboratory Results 02/12/20 16:20: Urine Opiates Screen POSITIVE H, Urine Methadone Screen NEGATIVE, Ur Barbiturates Screen NEGATIVE, Ur Phencyclidine Scrn NEGATIVE, Ur Amphetamines Screen POSITIVE H, U Methamphetamin-MDMA NEGATIVE, U Benzodiazepines Scrn NEGATIVE, Urine Cocaine Screen NEGATIVE, U Cannabinoids Screen POSITIVE H, Ur Drug Screen Comment 02/12/20 16:25: Sodium 141, Potassium 3.7, Chloride 109 H, Carbon Dioxide 29.0, Anion Gap 3 L, BUN 10, Creatinine 0.63, Estim Creat Clear Calc 108.47, Est GFR (MDRD) Af Amer 147, Est GFR (MDRD) Non-Af 122, BUN/Creatinine Ratio 15.8, Glucose 71 L, Calcium 8.9, Total Bilirubin 0.30, AST 19, ALT 22, Alkaline Phosphatase 90, Total Protein 7.3, Albumin 3.3, Globulin 4.0, Albumin/Globulin Ratio 0.8 L 02/12/20 16:25: Ethyl Alcohol 15.0 02/12/20 16:25: Serum , Qual NEGATIVE 02/12/20 16:25: WBC 6.8, RBC 4.54, Hgb 12.8, Hct 39.9, MCV 87.9, MCH 28.2, MCHC 32.1, RDW Std Deviation 40.5, RDW Coeff of James 12.5, Plt Count 267, MPV 10.1, Immature Gran % (Auto) 0.300, Neut % (Auto) 56.3, Lymph % (Auto) 30.0, [facility] % (Auto) 10.2 H, Eos % (Auto) 2.5, Baso % (Auto) 0.7, Absolute Neuts (auto) 3.8, Absolute Lymphs (auto) 2.03, Nucleated RBC % 0 Current Medications Acetaminophen (Tylenol) 500 mg PO Q4H PRN PRN PRN Reason: Temp > 100.4 F Last Admin: 02/13/20 07:47 Dose: 500 mg Documented by: Buprenorphine HCl (Buprenorphine Hcl) 4 mg SL Q8H MY; Taper Stop: 02/15/20 18:44 Last Admin: 02/13/20 01:46 Dose: 4 mg Documented by: Clonidine (Catapres) 0.1 mg PO Q8H PRN PRN PRN Reason: RESTLESSNESS Dicyclomine HCl (Bentyl) 20 mg PO Q6H PRN PRN PRN Reason: Abdominal Discomfort Gabapentin (Neurontin) 300 mg PO Q8H PRN PRN PRN Reason: moderate to severe anxiety Hydroxyzine Pamoate (Vistaril Pamoate Capsule) 50 mg PO Q6H PRN PRN PRN Reason: mild anxiety Last Admin: 02/13/20 07:44 Dose: 50 mg Documented by: Sodium Chloride () 250 mls @ 15 mls/hr IV .[id number] PRN PRN Reason: Saline Flush Sodium Chloride () 250 mls @ 15 mls/hr IV .[id number] PRN PRN Reason: Additional IVPB Infusion Loperamide HCl (Imodium) 2 mg PO Q4H PRN PRN PRN Reason: LOOSE STOOLS Methocarbamol (Methocarbamol) 1,500 mg PO Q6H PRN PRN PRN Reason: MUSCLE SPASM Last Admin: 02/13/20 07:45 Dose: 1,500 mg Documented by: Mupirocin (Mupirocin Ointment 22gm Tube) 1 applic TOPICAL BID [facility]; Protocol Nicotine (Nicoderm Cq (Pbkc)) 21 mg TRANSDERM. DAILY [facility] Last Admin: 02/13/20 09:05 Dose: Not Given Documented by: Ondansetron HCl (Zofran) 8 mg PO Q8H PRN PRN PRN Reason: NAUSEA Paroxetine HCl (Paxil) 40 mg PO DAILY [facility] Last Admin: 02/13/20 07:45 Dose: 20 mg Documented by: Sodium Chloride () 10 - 40 ml IV UD PRN PRN Reason: SALINE FLUSH Topiramate (Topamax) 100 mg PO DAILY [facility] Last Admin: 02/13/20 07:45 Dose: 100 mg Documented by: Trazodone HCl (Desyrel) 100 mg PO QHS PRN PRN PRN Reason: INSOMNIA STROKE Vital Signs/Narrative: Vital Signs Temp Pulse Resp BP Pulse Ox 02/13/20 08:17 97.6 F L 85 16 122/79 H 99 Medical Necessity - Tobacco Use Smoking Status: Current every day smoker Tobacco Use: Cigarettes, - Assessment/Plan All Active Problems (Last Reviewed 10/23/19 @ 11:03 by Gill Varela) Acute opioid withdrawal (Acute) This is a 24 years old female patient presented to the emergency room requesting admission for acute opiate withdrawal for medical stabilization. #1 acute opiate withdrawal: Chronic IV heroin and methamphetamine. Last dose was 11 PM day before admission. Labs reviewed. Liver chemistry within normal limit. Albumin 3.3, low. U tox positive of opioids, amphetamines and cannabinoids. Serum test negative. Patient is on Subutex along with other supportive medications Neurontin, Catapres, Bentyl, Vistaril, loperamide, trazodone and methocarbamol. 180 is been consulted. #2 depression: Continue Paxil. #3 migraine headaches: Stable, continue Topamax. #4 tobacco abuse: NicoDerm patch. #5 DVT prophylaxis: Low risk patient, no prophylaxis indicated. Inpatient E&M: 04048 Subs Hosp L2
--- NOTE | 2020-02-13 10:04 | ADDICTION ---
This insurance underwriter sales attempted to meet with patient in her room. Patient requested that this insurance underwriter sales meet with her tomorrow as she is not feeling well this morning. This insurance underwriter sales will attempt to meet with patient on 02/14/2020.
[2020-02-13] MEDS: Mupirocin Ointment 22gm Tube 1 APPLIC TOPICAL ×2 (10:54→20:06)
[2020-02-13 11:10] LABS: M R Staph aureus DNA By PCR Negative (Negative); Probe Check PASS; Specimen Processing Control PASS
--- NOTE | 2020-02-13 14:23 | CHAPLAIN ---
Type of Pastoral Visit _x__ Initial Visit ___ Follow-up Visit ___ On-call Visit ___ General Patient Visit ___ Spiritual Assessment ___ Family Conference ___ Bereavement ___ Rapid Response ___ Code Blue ___ Other (describe below) Pastoral Care Referral From _x__ Patient ___ Family ___ Nurse ___ Physician ___ Human Services Worker ___ Reverse Unit Operator Fisherman ___ Other (describe below) Sacrament/Intervention _x__ Active listening ___ Anointing ___ Buddhist ___ Bereavement ___ Communion ___ Lesley exploration ___ ___ Life review _x__ Prayer ___ Reconciliation ___ Sacrament of Sick _x__ Supportive presence ___ Wedding ___ Other (describe below) Pastoral Comments 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
--- NOTE | 2020-02-13 14:43 | CASEMGMT ---
Social Work Telephone call to [facility], Lynne Valles. Lynne updated on patient daughter, Mikel Garcia current location and primary adult caring for Mikel as noted in pervious note. Lynne updated on address and phone number of Marilee Lucero. Jazz Billings MSW, [id number]
[2020-02-13 14:54] VITALS: BP 119/69; PULSE 79; RESP 16; TEMP 36.8; O2SAT 97
[2020-02-13] MEDS: traZODone 100 MG Tablet PO (20:05)
[2020-02-13] MEDS: Gabapentin 300 MG Capsule PO (20:05)
[2020-02-13 20:10] VITALS: BP 114/71; PULSE 73; RESP 16; TEMP 37; O2SAT 98
[2020-02-14 03:00] VITALS: BP 109/70; PULSE 103; RESP 16; TEMP 36.9; O2SAT 99
[2020-02-14] MEDS: Buprenorphine HCl 2 MG TAB.SUBL SL ×3 (03:03→18:35)
[2020-02-14 08:00] VITALS: RESP 18
[2020-02-14 10:07] VITALS: BP 106/61; PULSE 90; RESP 16; TEMP 37.1; O2SAT 99
[2020-02-14] MEDS: Paroxetine 20 MG Tablet 40 MG PO (10:09)
[2020-02-14] MEDS: Topiramate 100 MG Tablet PO (10:09)
[2020-02-14] MEDS: Mupirocin Ointment 22gm Tube 1 APPLIC TOPICAL ×2 (10:09→19:44)
[2020-02-14] MEDS: Methocarbamol 750 MG Tablet 1500 MG PO ×2 (11:13→19:43)
--- NOTE | 2020-02-14 11:59 | ADDICTION ---
This policy writer met with patient in her room to conduct ASAM, DUDIT and MSE assessments and d/c plan. Patient was awake, alert and oriented x4 and presented with depressed and irritable mood and affect. She participated appropriately throughout this meeting. She reported that she is motivated to go to [facility] for residential treatment. This policy writer and client called [facility] and were informed that there is a 4 week waiting list to get into this program. Patient declined further coordination with residential treatment facilities stating that I don't know what I'm going to do. She reported that she will discharge to her grandmother's house and will figure it out from there. She did not report a need for transportation at d/c. She was given contact information for this policy writer's main office and for [facility], with direct extension to it coordinator.
[2020-02-14 14:00] VITALS: RESP 18
--- NOTE | 2020-02-14 15:28 | PCA ---
[facility] CALLED THIS SITE PLANNER TO GET AN UPDATE ON PATIENT AND TO SPEAK TO HER. THIS SITE PLANNER INFORMED SERVICES THAT WHILE THEY ARE IN THIS PROGRAM THEY DO NOT HAVE PHONE ACCESS. [facility] WAS OKAY WITH THAT.
--- NOTE | 2020-02-14 16:26 | PCM.PROGNOTE ---
Patient Problems: Active and Suspected Problems (Last Reviewed 10/23/19 @ 11:03 by iGll Varela) Acute opioid withdrawal (Acute) Subjective: Patient was seen and examined today, she complains of diffuse muscle aches, patient denies any chest pain or shortness of breath. Patient told the oncology social work that she would like to pursue inpatient detox services at a facility. - Physical Exam Vitals/I&O's: Vital Signs Temp Pulse Resp BP Pulse Ox 98.7 F 90 16 106/61 99 02/14/20 10:07 02/14/20 10:07 02/14/20 10:07 02/14/20 10:07 02/14/20 10:07 Oxygen Delivery Method Room Air Weight: 48.993 kg Body Mass Index (BMI) 19.7 Intake and Output for Last 24 Hours 02/12/20 02/13/20 02/14/20 23:59 23:59 23:59 Intake Total 1650 / 1650 800 / 800 Balance 1650 / 1650 800 / 800 General: Alert, Oriented x3, Cooperative, Well developed HEENT: Atraumatic, PERRLA, EOMI, Normocephalic Oral: Moist Mucosa Neck: Supple, No JVD, Trachea Midline, Thyroid Normal Size and Texture Lungs: Clear to auscultation, Normal air movement, No rhonchi, No wheeze, No rales Cardiovascular: Regular rate, Regular Rhythm, Normal S1, Normal S2, No murmurs, PMI Normal, No rub noted, No Gallop Abdomen: Bowel Sounds Present, Soft, Non Tender, Non-Distended Extremities: No edema, Capillary Refill Less than 3 Seconds Skin: Excoriated - Patient has multiple eschared areas over her entire face which are a centimeter or less in diameter. Musculoskeletal: No Tenderness to Palpation of Joints or Extremities Neurological: Cranial nerves II-XII grossly intact, Neuro grossly intact, Sensory exam intact to light touch and pain, Coordination normal Psych/Mental Status: Appropriate, Flat Affect, Alert and oriented to time, place, person, mood and affect Current Medications Acetaminophen (Tylenol) 500 mg PO Q4H PRN PRN PRN Reason: Temp > 100.4 F Last Admin: 02/13/20 20:05 Dose: 500 mg Documented by: Buprenorphine HCl (Buprenorphine Hcl 2 Mg Tab.Subl) 2 mg SL Q8H MY; Taper Stop: 02/15/20 18:44 Last Admin: 02/14/20 11:13 Dose: 2 mg Documented by: Clonidine (Catapres) 0.1 mg PO Q8H PRN PRN PRN Reason: RESTLESSNESS Dicyclomine HCl (Bentyl) 20 mg PO Q6H PRN PRN PRN Reason: Abdominal Discomfort Gabapentin (Neurontin) 300 mg PO Q8H PRN PRN PRN Reason: moderate to severe anxiety Last Admin: 02/13/20 20:05 Dose: 300 mg Documented by: Hydroxyzine Pamoate (Vistaril Pamoate Capsule) 50 mg PO Q6H PRN PRN PRN Reason: mild anxiety Last Admin: 02/13/20 07:44 Dose: 50 mg Documented by: Sodium Chloride () 250 mls @ 15 mls/hr IV .[id number] PRN PRN Reason: Saline Flush Sodium Chloride () 250 mls @ 15 mls/hr IV .[id number] PRN PRN Reason: Additional IVPB Infusion Loperamide HCl (Imodium) 2 mg PO Q4H PRN PRN PRN Reason: LOOSE STOOLS Methocarbamol (Methocarbamol) 1,500 mg PO Q6H PRN PRN PRN Reason: MUSCLE SPASM Last Admin: 02/14/20 11:13 Dose: 1,500 mg Documented by: Mupirocin (Mupirocin Ointment 22gm Tube) 1 applic TOPICAL BID [facility]; Protocol Last Admin: 02/14/20 10:09 Dose: 1 dose Documented by: Nicotine (Nicoderm Cq (Pbkc)) 21 mg TRANSDERM. DAILY [facility] Last Admin: 02/14/20 11:13 Dose: Not Given Documented by: Ondansetron HCl (Zofran) 8 mg PO Q8H PRN PRN PRN Reason: NAUSEA Paroxetine HCl (Paxil) 40 mg PO DAILY [facility] Last Admin: 02/14/20 10:09 Dose: 20 mg Documented by: Sodium Chloride () 10 - 40 ml IV UD PRN PRN Reason: SALINE FLUSH Sodium Chloride (Sodium Chloride 0.65% 1 [place].Btl) 2 spray NASAL TID PRN PRN PRN Reason: NASAL DRYNESS Topiramate (Topamax) 100 mg PO DAILY [facility] Last Admin: 02/14/20 10:09 Dose: 100 mg Documented by: Trazodone HCl (Desyrel) 100 mg PO QHS PRN PRN PRN Reason: INSOMNIA Last Admin: 02/13/20 20:05 Dose: 100 mg Documented by: Medical Necessity - Tobacco Use Smoking Status: Current every day smoker Tobacco Use: Cigarettes, - Assessment/Plan All Active Problems (Last Reviewed 10/23/19 @ 11:03 by Gill Varela) Acute opioid withdrawal (Acute) #1 acute opiate withdrawal-continue present treatment at this time, continue Subutex, follow-up with 180 #2 polysubstance abuse #3 chronic depression #4 history of migraines Inpatient E&M: 36911 Subs Hosp L2
[2020-02-14 19:39] VITALS: BP 118/62; PULSE 80; RESP 16; TEMP 36.8; O2SAT 97
[2020-02-14] MEDS: Dicyclomine 10 MG Capsule 20 MG PO (19:43)
[2020-02-14] MEDS: traZODone 100 MG Tablet PO (19:43)
[2020-02-14] MEDS: Ondansetron 8 MG Tablet PO (19:43)
[2020-02-15 05:46] VITALS: BP 105/69; PULSE 80; RESP 14; TEMP 36.6; O2SAT 96
[2020-02-15] MEDS: Methocarbamol 750 MG Tablet 1500 MG PO ×3 (05:49→21:22)
[2020-02-15] MEDS: Buprenorphine HCl 2 MG TAB.SUBL SL (05:49)
[2020-02-15] MEDS: Ondansetron 8 MG Tablet PO ×2 (05:49→15:14)
[2020-02-15] MEDS: Gabapentin 300 MG Capsule PO ×2 (05:49→15:14)
[2020-02-15] MEDS: Dicyclomine 10 MG Capsule 20 MG PO (05:49)
[2020-02-15 09:00] VITALS: BP 115/59; PULSE 82; RESP 18; TEMP 36.4; O2SAT 96
[2020-02-15] MEDS: Mupirocin Ointment 22gm Tube 1 APPLIC TOPICAL (10:34)
[2020-02-15] MEDS: Paroxetine 20 MG Tablet 40 MG PO (10:36)
[2020-02-15] MEDS: Topiramate 100 MG Tablet PO (10:36)
[2020-02-15] MEDS: hydrOXYzine PAM 25 MG Capsule 50 MG PO ×2 (10:36→20:23)
[2020-02-15] MEDS: Acetaminophen 500 MG Tablet PO (10:36)
[2020-02-15 15:00] VITALS: BP 112/68; PULSE 87; RESP 18; TEMP 36.6; O2SAT 97
--- NOTE | 2020-02-15 17:11 | PN_ITS ---
Patient Problems: Active and Suspected Problems (Last Reviewed 10/23/19 @ 11:03 by Gill Varela) Acute opioid withdrawal (Acute) Subjective: Patient was seen and examined today, she still complains of diffuse body aches, she states that her plan at the time of discharge will be to go to an inpatient [id number] loft worker pile driving has documented that there is a 4- week waiting period to get into a facility and the patient will be discharged to live with her grandmother. Patient did not mention this to me during the time of my examination today. - Physical Exam Vitals/I&O's: Vital Signs Temp Pulse Resp BP Pulse Ox 97.8 F 87 18 112/68 97 02/15/20 15:00 02/15/20 15:00 02/15/20 15:00 02/15/20 15:00 02/15/20 15:00 Oxygen Delivery Method Room Air Weight: 48.993 kg Body Mass Index (BMI) 19.7 Intake and Output for Last 24 Hours 02/13/20 02/14/20 02/15/20 23:59 23:59 23:59 Intake Total 1650 / 1650 1650 / 2250 1400 / 1400 Balance 1650 / 1650 1650 / 2250 1400 / 1400 General: Alert, Oriented x3, Cooperative, No apparent distress, Well developed, Well nourished HEENT: Atraumatic, PERRLA, EOMI, Normocephalic Oral: Moist Mucosa Neck: Supple, No JVD, Trachea Midline, Thyroid Normal Size and Texture Lungs: Clear to auscultation, Normal air movement, No rhonchi, No wheeze Cardiovascular: Regular rate, Regular Rhythm, Normal S1, Normal S2, No murmurs, PMI Normal, No rub noted, No Gallop Abdomen: Bowel Sounds Present, Soft, Non Tender, Non-Distended Extremities: No edema, Capillary Refill Less than 3 Seconds Skin: - - Multiple eschared areas are noted over the patient's face, there is no discharge from these areas Musculoskeletal: No Tenderness to Palpation of Joints or Extremities Neurological: Cranial nerves II-XII grossly intact, Neuro grossly intact, Sensory exam intact to light touch and pain, Coordination normal Psych/Mental Status: Normal Affect, Appropriate, Alert and oriented to time, place, person, mood and affect Current Medications Acetaminophen (Tylenol) 500 mg PO Q4H PRN PRN PRN Reason: Temp > 100.4 F Last Admin: 02/15/20 10:36 Dose: 500 mg Documented by: Buprenorphine HCl (Buprenorphine Hcl 2 Mg Tab.Subl) 2 mg SL Q12H MY; Taper Stop: 02/15/20 18:44 Last Admin: 02/15/20 05:49 Dose: 2 mg Documented by: Clonidine (Catapres) 0.1 mg PO Q8H PRN PRN PRN Reason: RESTLESSNESS Dicyclomine HCl (Bentyl) 20 mg PO Q6H PRN PRN PRN Reason: Abdominal Discomfort Last Admin: 02/15/20 05:49 Dose: 20 mg Documented by: Gabapentin (Neurontin) 300 mg PO Q8H PRN PRN PRN Reason: moderate to severe anxiety Last Admin: 02/15/20 15:14 Dose: 300 mg Documented by: Hydroxyzine Pamoate (Vistaril Pamoate Capsule) 50 mg PO Q6H PRN PRN PRN Reason: mild anxiety Last Admin: 02/15/20 10:36 Dose: 50 mg Documented by: Sodium Chloride () 250 mls @ 15 mls/hr IV .[id number] PRN PRN Reason: Saline Flush Sodium Chloride () 250 mls @ 15 mls/hr IV .[id number] PRN PRN Reason: Additional IVPB Infusion Loperamide HCl (Imodium) 2 mg PO Q4H PRN PRN PRN Reason: LOOSE STOOLS Methocarbamol (Methocarbamol) 1,500 mg PO Q6H PRN PRN PRN Reason: MUSCLE SPASM Last Admin: 02/15/20 15:14 Dose: 1,500 mg Documented by: Mupirocin (Mupirocin Ointment 22gm Tube) 1 applic TOPICAL BID [facility]; Protocol Last Admin: 02/15/20 10:34 Dose: 1 dose Documented by: Nicotine (Nicoderm Cq (Pbkc)) 21 mg TRANSDERM. DAILY [facility] Last Admin: 02/15/20 10:35 Dose: Not Given Documented by: Ondansetron HCl (Zofran) 8 mg PO Q8H PRN PRN PRN Reason: NAUSEA Last Admin: 02/15/20 15:14 Dose: 8 mg Documented by: Paroxetine HCl (Paxil) 40 mg PO DAILY [facility] Last Admin: 02/15/20 10:36 Dose: 40 mg Documented by: Sodium Chloride () 10 - 40 ml IV UD PRN PRN Reason: SALINE FLUSH Sodium Chloride (Sodium Chloride 0.65% 1 Olar Olar.Btl) 2 spray NASAL TID PRN PRN PRN Reason: NASAL DRYNESS Topiramate (Topamax) 100 mg PO DAILY [facility] Last Admin: 02/15/20 10:36 Dose: 100 mg Documented by: Trazodone HCl (Desyrel) 100 mg PO QHS PRN PRN PRN Reason: INSOMNIA Last Admin: 02/14/20 19:43 Dose: 100 mg Documented by: Medical Necessity - Tobacco Use Smoking Status: Current every day smoker Tobacco Use: Cigarettes, - Assessment/Plan All Active Problems (Last Reviewed 10/23/19 @ 11:03 by Gill Varela) Acute opioid withdrawal (Acute) #1 acute opiate withdrawal-continue present treatment at this time, continue Subutex, it appears that the patient will have to follow-up as an outpatient for further detox services #2 polysubstance abuse #3 chronic depression #4 history of migraines #5 skin picking disorder-I do not believe at this time the patient needs continued Bactroban application to her face, I have stopped this Inpatient E&M: [id number] Subs Hosp L2
[2020-02-15 20:19] VITALS: BP 102/62; PULSE 83; RESP 16; TEMP 36.9; O2SAT 97
[2020-02-15] MEDS: traZODone 100 MG Tablet PO (20:23)
[2020-02-16] MEDS: hydrOXYzine PAM 25 MG Capsule 50 MG PO (03:10)
[2020-02-16] MEDS: cloNIDine HCl 0.1 MG Tablet PO (03:10)
[2020-02-16 03:15] VITALS: BP 107/65; PULSE 87; RESP 18; TEMP 36.9; O2SAT 96
--- NOTE | 2020-02-16 09:20 | CASEMGMT ---
Social Work Note Salma from [facility] met with pt. SW updated by Salma with [facility] that pt will figure out a plan at discharge. Jazmyn Montero CASTING HOUSE WORKER, CABLE TESTERS HELPER
[2020-02-16 10:29] VITALS: BP 93/54; PULSE 88; RESP 18; TEMP 36.9; O2SAT 98
[2020-02-16] MEDS: Paroxetine 20 MG Tablet 40 MG PO (10:31)
[2020-02-16] MEDS: Topiramate 100 MG Tablet PO (10:31)
[2020-02-16] MEDS: BENZOCAINE/MENTHOL 1 LOZENGE MUCOUS MEM (11:16)
--- NOTE | 2020-02-16 11:34 | DCINST_ITS ---
- Discharge Diagnoses Current Active Problems: Current Active and Chronic Problems (Last Reviewed 10/23/19 @ 11:03 by Gill Varela) Acute opioid withdrawal (Acute) Migraine headache (Chronic) Depression (Chronic) Polysubstance abuse (Chronic) Heroin use (Chronic) Methamphetamine use (Chronic) You will use the following diet at home:: No restrictions Your food should be the consistency of: Regular Your liquids should be the consistency of: Regular/Thin Discharge Activity: Return to Normal Activity Weight Bearing Status: Full weight bearing Allergies/Adverse Reactions: Allergies No Known Allergies Allergy (Verified 02/12/20 15:41) Medications to take at Discharge paroxetine HCl 40 mg tablet 40 mg PO DAILY 03/02/19 medroxyprogesterone 150 mg/mL intramuscular syringe 150 mg IM [id number] #1 ml 10/23/19 topiramate 100 mg tablet 100 mg PO DAILY 10/23/19 Acetaminophen [Tylenol] 500 mg PO Q4H PRN PRN tab 02/16/20 Primary Care Physician: Cirilo Saldivar MD [Primary Care Provider] - Please follow up with your Primary Care Physician in: in one week Test Results: Test results from this visit will be discussed in further detail at your follow- up appointment, if applicable. Please Follow Up With: 180 When: next week
[2020-02-16] MEDS: Sodium Chloride 0.65% 1 SPRAY SPRAY.BTL 2 SPRAY NASAL (11:57)
--- NOTE | 2020-02-16 12:06 | CASEMGMT ---
Social Work Note Pt is being discharged to grandmother's house today per [facility] notes. Pt has active children services case and CM is Ying Townsend. SW placed a call to [facility] and left message for pt's Croze Machine Operator Ying and updated her on pt's discharge plan of going to her grandmother's house at discharge. Jazmyn Montero BLOW MOLD MACHINE OPERATOR, RESEARCH EDITOR
[2020-02-16 12:15] VITALS: BP 93/54; PULSE 88; RESP 18; TEMP 36.9; O2SAT 98
--- NOTE | 2020-02-16 17:23 | PCM.DC.SUM ---
Discharge Date and Diagnosis - Problem List Patient Problems: Active and Suspected Problems (Last Reviewed 10/23/19 @ 11:03 by Gill Varela) Acute opioid withdrawal (Acute) Date of Admission: 02/12/20 Date of Discharge: 02/16/20 - Primary Discharge Diagnosis Acute Problems: Active Problems (Last Reviewed 10/23/19 @ 11:03 by Gill Varela) #1 acute opiate withdrawal #2 polysubstance abuse #3 chronic depression #4 history of migraines #5 skin picking disorder - Secondary Discharge Diagnosis Chronic Problems: Chronic Problems (Last Reviewed 10/23/19 @ 11:03 by Glil Varela) Migraine headache (Chronic) Depression (Chronic) Polysubstance abuse (Chronic) Heroin use (Chronic) Methamphetamine use (Chronic) Hospital Course and Treatment Operations: None Procedures: None Summary of Care Provided: The patient is a 24 year old F who presented to the emergency room at [facility] for detox services concerning opiate and methamphetamine abuse. Labs obtained on admission are unremarkable except for a tox screen which shows positive opiates positive amphetamines and positive cannabinoids. At the alcohol level was 15. Patient was admitted to [place] [id number] for acute detox from opiates, order sets were entered using the standard opiate detox order set. During the patient's hospital stay, she had no complications, she talked with the optical worker and her plan was to follow-up with them as an outpatient due to the fact she could not get into an inpatient detox facility she requested elsewhere. On 02/16/2020, patient was seen and examined: On examination she appeared in good health and spirits, she does not appear to be in any distress. Vital signs as documented. Skin warm and dry and without overt rashes. Neck without JVD, thyroid appears normal, trachea is midline, neck is supple. Lungs clear, normal air movement was noted. Heart exam notable for regular rhythm, normal sounds and absence of murmurs, rubs or gallops. Abdomen unremarkable and without evidence of organomegaly, masses, or abdominal aortic enlargement, bowel sounds are present in all 4 quadrants, no abdominal tenderness was noted. Extremities nonedematous, no cyanosis was noted, no clubbing was noted. Neuro: Cranial nerves II through XII are grossly intact, no focal motor deficits were noted, sensation to light touch and pinprick is intact, motor exam 5/5 throughout. Psych: Patient is alert and oriented x3, she does not appear anxious or depressed, she does not appear agitated. Patient was discharged on 02/16/2020, she was to follow-up as an outpatient with 180. Patient Problems: Active and Suspected Problems (Last Reviewed 10/23/19 @ 11:03 by Gill Varela) Acute opioid withdrawal (Acute) - Physical Exam Vitals/I&O's: Vital Signs Temp Pulse Resp BP Pulse Ox 98.5 F 88 18 93/54 L 98 02/16/20 12:15 02/16/20 12:15 02/16/20 12:15 02/16/20 12:15 02/16/20 12:15 Oxygen Delivery Method Room Air Weight: 48.993 kg Body Mass Index (BMI) 19.7 Intake and Output for Last 24 Hours 02/14/20 02/15/20 02/16/20 23:59 23:59 23:59 Intake Total 1650 / 2250 1400 / 1900 500 / 500 Balance 1650 / 2250 1400 / 1900 500 / 500 Discharge Activity: Return to Normal Activity Weight Bearing Status: Full weight bearing Home Medications: Medications to take at Discharge paroxetine HCl 40 mg tablet 40 mg PO DAILY 03/02/19 medroxyprogesterone 150 mg/mL intramuscular syringe 150 mg IM [id number] #1 ml 10/23/19 topiramate 100 mg tablet 100 mg PO DAILY 10/23/19 Acetaminophen [Tylenol] 500 mg PO Q4H PRN PRN tab 02/16/20 Primary Care Physician: Cirilo Saldivar MD [Primary Care Provider] - Please follow up with your Primary Care Physician in: in one week Please Follow Up With: 180 When: next week Disposition: Home Minutes spent on discharge:: 31 Patient Condition:: Stable Medical Necessity - Tobacco Use Smoking Status: Current every day smoker Tobacco Use: Cigarettes, - Meaningful Use Info Meaningful Use Diagnoses (Choose all that apply): None applicable Inpatient E&M: 19565 Disch Hosp
== END 2020-02-16 12:18 | disposition home or self-care (01) ==
LOC: ED 17:30 → MS3 17:56
PROVIDERS: Internal Medicine; Admitting Provider Hospitalist; Emergency Provider Emergency Medicine; PCP Family Medicine; Visit Provider Internal Medicine
DX: F15.90 Other stimulant use, unspecified, uncomplicated (principal); F11.23 Opioid dependence with withdrawal; B19.20 Unspecified viral hepatitis C without hepatic coma; F32.9 Major depressive disorder, single episode, unspecified; Z79.899 Other long term (current) drug therapy; G43.909 Migraine, unspecified, not intractable, without status migrainosus; F17.210 Nicotine dependence, cigarettes, uncomplicated; F41.9 Anxiety disorder, unspecified; F42.4 Excoriation (skin-picking) disorder
CPT/HCPCS: 80053; 80307; 80320; 84703; 85025; 87641; 99281; 99285; 99406; H0012; G0480

== ENCOUNTER 2020-04-17 23:15 | Observation (INO) | payer MEDICAID, SELFPAY ==
[2020-04-17 23:16] VITALS: BP 124/85; PULSE 95; RESP 16; TEMP 36.4; O2SAT 100; BMI 21.0
--- NOTE | 2020-04-17 23:25 | ED.VIS.GEN ---
History of Present Illness Chief Complaint: Substance Abuse Narrative: This patient is a 25-year-old female who presents for heroin detox. She was admitted for detox about 2 months ago. She had wanted to continue at an inpatient facility but there was a 4-week wait for prior records so she decided to go home. She relapsed about 1 week later. Her last heroin use was about 4 h ago. Currently she is completely asymptomatic with no complaints. Past Medical History - Allergies and Home Meds Allergies/Adverse Reactions: Allergies No Known Allergies Allergy (Verified 04/17/20 23:17) Primary Care Physician: Cirilo Saldivar MD [Primary Care Provider] - Past Medical History: - - Heroin abuse, hepatitis C Surgical History: noncontributory Smoking Status: Current every day smoker - Family History Maternal Family History: Reports: No pertinent history Paternal Family History: Reports: No pertinent history Review of Systems All systems negative except as indicated General: Denies: Fever Eyes: Denies: Visual changes - bilaterally ENT: Denies: Bilateral ear pain Cardiovascular: Denies: Chest pain Respiratory: Denies: Dyspnea Gastrointestinal: Denies: Nausea, Vomiting, Diarrhea Musculoskeletal: Denies: Myalgias, Arthralgias Skin: Denies: Rash Neurological: Denies: Headache Physical Exam Vital Signs/Narrative: Vital Signs Temp Pulse Resp BP Pulse Ox 04/17/20 23:16 97.6 F L 95 16 124/85 H 100 Inital Vital Signs reviewed: Yes General: Well nourished Head: Normocephalic Eyes: EOMI ENT: Moist mucous membranes Neck: Supple Cardiovascular: Regular rate Respiratory: No distress Skin: Normal color Neurological: Alert Psychological: Normal affect Diagnostic/Tx/Re-eval Laboratory Results 04/17/20 04/17/20 04/17/20 23:25 23:30 23:30 WBC 8.5 RBC 4.35 Hgb 12.1 Hct 37.6 MCV 86.4 MCH 27.8 MCHC 32.2 RDW Std Deviation 40.7 RDW Coeff of James 12.8 Plt Count 352 MPV 8.5 Immature Gran % (Auto) 0.200 Neut % (Auto) 43.4 L Lymph % (Auto) 39.9 [place] % (Auto) 10.1 H Eos % (Auto) 5.3 H Baso % (Auto) 1.1 H Absolute Neuts (auto) 3.7 Absolute Lymphs (auto) 3.41 Nucleated RBC % 0 Sodium 139 Potassium 3.7 Chloride 105 Carbon Dioxide 28.0 Anion Gap 6 BUN 9 Creatinine 0.67 Estim Creat Clear Calc 101.52 Est GFR (MDRD) Af Amer 138 Est GFR (MDRD) Non-Af 114 BUN/Creatinine Ratio 13.4 Glucose 102 Calcium 8.7 Total Bilirubin 0.20 AST 55 H ALT 113 H Alkaline Phosphatase 116 Total Protein 7.7 Albumin 3.4 Globulin 4.3 H Albumin/Globulin Ratio 0.8 L Urine Test Urine Opiates Screen POSITIVE H Urine Methadone Screen NEGATIVE Ur Barbiturates Screen NEGATIVE Ur Phencyclidine Scrn NEGATIVE Ur Amphetamines Screen POSITIVE H U Methamphetamin-MDMA POSITIVE H U Benzodiazepines Scrn NEGATIVE Urine Cocaine Screen NEGATIVE U Cannabinoids Screen NEGATIVE Ur Drug Screen Comment Ethyl Alcohol 04/17/20 04/17/20 23:30 23:30 WBC RBC Hgb Hct MCV MCH MCHC RDW Std Deviation RDW Coeff of Jaems Plt Count MPV Immature Gran % (Auto) Neut % (Auto) Lymph % (Auto) [place] % (Auto) Eos % (Auto) Baso % (Auto) Absolute Neuts (auto) Absolute Lymphs (auto) Nucleated RBC % Sodium Potassium Chloride Carbon Dioxide Anion Gap BUN Creatinine Estim Creat Clear Calc Est GFR (MDRD) Af Amer Est GFR (MDRD) Non-Af BUN/Creatinine Ratio Glucose Calcium Total Bilirubin AST ALT Alkaline Phosphatase Total Protein Albumin Globulin Albumin/Globulin Ratio Urine Test Negative Urine Opiates Screen Urine Methadone Screen Ur Barbiturates Screen Ur Phencyclidine Scrn Ur Amphetamines Screen U Methamphetamin-MDMA U Benzodiazepines Scrn Urine Cocaine Screen U Cannabinoids Screen Ur Drug Screen Comment Ethyl Alcohol < 3.0 - Medical Decision Making Adequate clearance as above notable for opiates, amphetamines, methamphetamines on urine drug screen. Patient will be discussed with the hospitalist and admitted for detox. ED Disposition - Plan for ED Patient: Disposition: Acute Care [facility] Diagnosis: Polysubstance abuse Referrals: Cirilo Saldivar MD [Primary Care Provider] -
[2020-04-17 23:40] LABS: Absolute Lymphocyte Count 3.41 X10^3/uL (0.83-4.51); Absolute Neutrophil Count 3.7 X10^3/uL (2.0-7.7); Basophil# 0.09 X10^3/uL; Basophil% 1.1 % (0-1); Eosinophil# 0.45 X10^3/uL; Eosinophils% 5.3 % (0-5); Hematocrit 37.6 % (37-47); Hemoglobin 12.1 g/dL (12.0-15.0); Lymphocyte # 3.41 X10^3/ul (4.0); Lymphocyte % 39.9 % (19-41); Mean Corp Hgb Conc 32.2 g/dL (32-36); Mean Corpuscular Hgb 27.8 pg (27.0-32.0); Mean Corpuscular Volume 86.4 fL (81-99); Mean Platelet Vol. 8.5 fl (6.2-12.0); Monocyte# 0.86 X10^3/uL; Monocyte% 10.1 % (0-10); NRBC Flagged by Analyzer 0 % (0-5); Neutrophil # 3.71 X10^3/uL (2.7-7.7); Neutrophil % 43.4 % (47-70); Platelet Count 352 K/mm3 (150-450); RBC Distribution Width CV 12.8 % (11.6-14.6); RBC Distribution Width SD 40.7 fl (35.1-43.9); Red Blood Count 4.35 M/mm3 (4.2-5.4); White Blood Count 8.5 K/mm3 (4.4-11.0)
[2020-04-17 23:45] LABS: Amphetamine Urine VISTA POSITIVE (<1000 ng/mL); Barbiturate Urine VISTA NEGATIVE (< 200 ng/mL); Benzodiazepine Urine VISTA NEGATIVE (< 200 ng/mL); Cocaine Urine VISTA NEGATIVE (< 300 ng/mL); Ecstacy Urine VISTA POSITIVE (< 500 ng/mL); Methadone Urine VISTA NEGATIVE (< 300 ng/mL); PCP Urine VISTA NEGATIVE (< 25 ng/mL); THC Urine VISTA NEGATIVE (< 50 ng/mL); Vista UDS pH Range 6
[2020-04-17 23:57] LABS: ALB/GLOB Ratio 0.8 RATIO (0.9-2.4); AST(SGOT) 55 U/L (15-37); Alanine Aminotransfer ALT/SGPT 113 U/L (13-56); Albumin, Serum 3.4 g/dL (3.2-5.0); Alkaline Phosphatase 116 U/L (45-117); Anion Gap 6 (5-15); BUN 9 mg/dL (7-18); BUN/Creat Ratio 13.4 RATIO (10-20); Calcium,Total 8.7 mg/dL (8.5-10.1); Chloride 105 mmol/L (98-107); Creatinine, Serum 0.67 mg/dL (0.55-1.02); EST Glomerular Filtration Rate 114 mL/min (>60); Est Glom Filt Rate - Afr Amer 138 mL/min (>60); Estimated Creatinine Clearance 101.52 ml/min; Globulin 4.3 g/dL (2.2-4.2); Glucose 102 mg/dL (74-106); Potassium 3.7 mmol/L (3.5-5.1); Protein, Total 7.7 g/dL (6.4-8.2); Sodium Level 139 mmol/L (136-145)
[2020-04-17 23:58] LABS: Alcohol, Blood (Medical)-Serum < 3.0 mg/dL
[2020-04-18 00:09] LABS: Internal QC Validated? YES +Cl - CLEAR BKGD; Pregnancy, Urine Negative Negative
--- NOTE | 2020-04-18 00:30 | HP.PCM_ITS ---
Problem List (1) Migraine headache Status: Chronic (2) Depression Status: Chronic (3) Polysubstance abuse Status: Chronic (4) Heroin use Status: Chronic (5) Methamphetamine use Status: Chronic (6) Desire for detoxification Status: Acute History of Present Illness Date of Admission: 04/18/20 Chief Complaint: Desire for detoxification The patient is a 25 year old M with a significant history of hepatitis C; and polysubstance abuse who presents emergency department with desire for detoxification. Her withdrawal symptoms has not started yet but she thinks that she would be withdrawing very soon. Her drugs of choice include heroin; methamphetamine and marijuana. She shoots the heroin. The last time she used heroin was about 4 and half hours prior to presentation. She snorts methamphetamine. The last time she used methamphetamine was about a week ago. She smokes the marijuana. The last time she used marijuana was a couple of weeks ago. Also she smokes tobacco. She came to the emergency department with her boyfriend who is also here for detoxification. She shared needles with only her boyfriend. Patient was admitted at our hospital on 02/12/2020 and discharged on 02/16/2020. She was admitted for acute opiate withdrawal. The plan was for her to get into long-term drug rehab facility. However because the wait time was about 4 months she ended up relapsing. Past Medical History Past Medical History (Chronic Problems): Chronic Problems (Last Reviewed 10/23/19 @ 11:03 by Gill Varela) Migraine headache (Chronic) Depression (Chronic) Polysubstance abuse (Chronic) Heroin use (Chronic) Methamphetamine use (Chronic) Medical History: Medical History (Last Reviewed 10/23/19 @ 11:03 by Gill Varela) Anxiety F41.9 Allergies No Known Allergies Allergy (Verified 04/17/20 23:17) Home Medications: Ambulatory Orders Medication Instructions Recorded NK 04/17/20 Surgical History: no surgical history Psychiatric History: Depression TRANSFER IRON OPERATOR History: No pertinent TRANSFER IRON OPERATOR history Smoking Status: Current every day smoker Tobacco Use: Cigarettes Drugs: Heroin, Marijuana - *Family History Maternal History Items: - - Patient reports alcoholism and drug addiction in both maternal and paternal side of the family. Paternal History Items: - - Patient reports alcoholism and drug addiction in both maternal and paternal side of the family. Review of Systems Constitutional: Denies: Chills, Fever, Weight Change HEENT: Denies: Head Aches, Sinus Congestion, Sinus Drainage Cardiovascular: Denies: Chest Pain, Palpitations Respiratory: Denies: Cough, Shortness of breath at rest, Sputum production Gastrointestinal: Denies: Abdominal Pain, Nausea, Vomiting Genitourinary: Denies: Dysuria Musculoskeletal: Denies: Joint Pain, Joint Tenderness Skin: Denies: Rash, Wounds Neurological: Denies: Numbness, Tingling, Focal weakness Psychiatric: Denies: Anxiety, Depression, Homicidal Ideations, Suicidal Ideations Hematologic/ Lymphatic: Denies: Easy Bruising, Easy Bleeding VTE Information - Inpt Only VTE Present on Admission: No VTE Mechan Device Prophylaxis: None VTE Pharm Prophylaxis ordered?: No Reason prophylaxis not ordered:: Treatment Not Indicated - Low risk; encouraged to ambulate Patient Problems: Active and Suspected Problems (Last Reviewed 10/23/19 @ 11:03 by Gill Varela) Desire for detoxification (Acute) - Physical Exam Vitals/I&O's: Vital Signs Temp Pulse Resp BP Pulse Ox 97.6 F L 95 16 124/85 H 100 04/17/20 23:16 04/17/20 23:16 04/17/20 23:16 04/17/20 23:16 04/17/20 23:16 Oxygen Delivery Method Room Air Weight: 52.163 kg Body Mass Index (BMI) 21.0 General: Alert, Oriented x3, Cooperative HEENT: Atraumatic, PERRLA, EOMI, Normocephalic Neck: Supple, No JVD, Negative Carotid Bruits Lungs: Clear to auscultation, Normal air movement Cardiovascular: Regular rate, Regular Rhythm, Normal S1, Normal S2, No murmurs Abdomen: Bowel Sounds Present, Soft, Non Tender Extremities: No edema, Capillary Refill Less than 3 Seconds Skin: No rashes, No breakdown Musculoskeletal: No Tenderness to Palpation of Joints or Extremities Neurological: Cranial nerves II-XII grossly intact Psych/Mental Status: Normal Affect, Appropriate Laboratory Results 04/17/20 23:25: Urine Opiates Screen POSITIVE H, Urine Methadone Screen NEGATIVE, Ur Barbiturates Screen NEGATIVE, Ur Phencyclidine Scrn NEGATIVE, Ur Amphetamines Screen POSITIVE H, U Methamphetamin-MDMA POSITIVE H, U Benzodiazepines Scrn NEGATIVE, Urine Cocaine Screen NEGATIVE, U Cannabinoids Screen NEGATIVE, Ur Drug Screen Comment 04/17/20 23:30: WBC 8.5, RBC 4.35, Hgb 12.1, Hct 37.6, MCV 86.4, MCH 27.8, MCHC 32.2, RDW Std Deviation 40.7, RDW Coeff of James 12.8, Plt Count 352, MPV 8.5, Immature Gran % (Auto) 0.200, Neut % (Auto) 43.4 L, Lymph % (Auto) 39.9, [place] % (Auto) 10.1 H, Eos % (Auto) 5.3 H, Baso % (Auto) 1.1 H, Absolute Neuts (auto) 3.7, Absolute Lymphs (auto) 3.41, Nucleated RBC % 0 04/17/20 23:30: Sodium 139, Potassium 3.7, Chloride 105, Carbon Dioxide 28.0, Anion Gap 6, BUN 9, Creatinine 0.67, Estim Creat Clear Calc 101.52, Est GFR (MDRD) Af Amer 138, Est GFR (MDRD) Non-Af 114, BUN/Creatinine Ratio 13.4, Glucose 102, Calcium 8.7, Total Bilirubin 0.20, AST 55 H, ALT 113 H, Alkaline Phosphatase 116, Total Protein 7.7, Albumin 3.4, Globulin 4.3 H, Albumin/Globulin Ratio 0.8 L 04/17/20 23:30: Ethyl Alcohol < 3.0 04/17/20 23:30: Urine Test Negative Assessment/Plan All Active Problems (Last Reviewed 10/23/19 @ 11:03 by Gill Varela) Desire for detoxification (Acute) The patient is a 25 year old F with a significant history of polysubstance dependence; IV drug use; and abuse who presents to the emergency department with drug withdrawal symptoms and who came in with his spouse for joint detoxification Opioid dependence and withdrawal Labs reviewed showed that urine toxicology was positive for opiates; amphetamines; and methamphetamines. Urine test was negative. Patient be started on Subutex and add adjunctive medications: Gabapentin as needed; dicyclomine as needed; Vistaril as needed; methocarbamol as needed; clonidine as needed; Imodium as needed; trazodone as needed and Zofran as needed. Monitor COWS and CINA score Tobacco abuse Counseled Declined nicotine patch prescribed. Evaded liver enzymes She reports treatment for hepatitis C. She share needles with her boyfriend. Trend liver enzymes. If liver enzymes is stable patient can follow-up with PCP after discharge. DVT prophylaxis Low risk Encourage to ambulate Inpatient E&M: [id number] Init Hosp L2
[2020-04-18 00:44] VITALS: BMI 19.5
[2020-04-18 01:16] VITALS: BMI 19.6
[2020-04-18 01:19] VITALS: BP 114/90; PULSE 96; RESP 18; TEMP 36.9; O2SAT 100
--- NOTE | 2020-04-18 04:14 | NURSING ---
emergency charting in effect.
[2020-04-18 05:26] VITALS: BP 94/89; PULSE 92; RESP 18; TEMP 36.9; O2SAT 98
[2020-04-18 06:47] LABS: AST(SGOT) 54 U/L (15-37); Alanine Aminotransfer ALT/SGPT 100 U/L (13-56); Alkaline Phosphatase 102 U/L (45-117); Bilirubin, Direct 0.11 mg/dL (0.00-0.30); Globulin 3.5 g/dL (2.2-4.2); Protein, Total 6.5 g/dL (6.4-8.2)
[2020-04-18 09:00] VITALS: BP 115/75; PULSE 79; RESP 18; TEMP 36.9; O2SAT 99
[2020-04-18] MEDS: hydrOXYzine PAM 25 MG Capsule 50 MG PO (09:53)
[2020-04-18] MEDS: cloNIDine HCl 0.1 MG Tablet PO ×2 (09:54→17:28)
[2020-04-18] MEDS: Ondansetron 8 MG Tablet PO ×2 (09:54→17:28)
[2020-04-18] MEDS: Buprenorphine HCl 2 MG TAB.SUBL SL ×2 (09:57→17:28)
--- NOTE | 2020-04-18 10:10 | ADDICTION ---
This radio script writer attempted to meet with patient, in her room, to complete assessments and to begin d/c planning. Patient was awake but stated that she was not up to meeting today. This radio script writer will attempt to meet with patient tomorrow 04/19/2020.
[2020-04-18] MEDS: Dicyclomine 10 MG Capsule 20 MG PO ×2 (11:41→17:27)
[2020-04-18] MEDS: Gabapentin 300 MG Capsule PO (11:41)
[2020-04-18] MEDS: Methocarbamol 750 MG Tablet 1500 MG PO (11:42)
[2020-04-18 13:00] VITALS: BP 110/66; PULSE 88; RESP 18; TEMP 36.6; O2SAT 96
--- NOTE | 2020-04-18 15:46 | PCM.HOSP.N ---
Hospitalist Note Patient was seen and examined. She uses IV needles for heroine. She also sometimes hears methamphetamine. Has chronic hepatitis C diagnosed about 3 years ago. Patient was admitted today. H&P reviewed. Denies hallucinations, delusion. Has mild shaking. Patient medications reviewed.
[2020-04-18 17:39] VITALS: BP 111/65; PULSE 77; RESP 18; TEMP 36.7; O2SAT 99
[2020-04-18 22:08] VITALS: BP 114/68; PULSE 84; RESP 18; TEMP 36.7; O2SAT 97
[2020-04-19 02:30] VITALS: BP 108/74; PULSE 90; RESP 17; TEMP 36.9; O2SAT 98
[2020-04-19] MEDS: Methocarbamol 750 MG Tablet 1500 MG PO ×2 (02:31→17:26)
[2020-04-19] MEDS: hydrOXYzine PAM 25 MG Capsule 50 MG PO (02:31)
[2020-04-19] MEDS: Dicyclomine 10 MG Capsule 20 MG PO ×3 (02:31→17:26)
[2020-04-19] MEDS: cloNIDine HCl 0.1 MG Tablet PO (02:31)
[2020-04-19] MEDS: Buprenorphine HCl 2 MG TAB.SUBL SL ×3 (02:31→17:26)
[2020-04-19 08:30] VITALS: BP 100/63; PULSE 68; RESP 16; TEMP 37; O2SAT 98
[2020-04-19] MEDS: Ondansetron 8 MG Tablet PO (10:39)
--- NOTE | 2020-04-19 14:21 | CASEMGMT ---
KORI left Salma with [employer] a voice mail as SW was informed she is working from home. She is calling patients. KORI wanted to make sure she was going to talk with patient. Kellie CALZADA MSW
[2020-04-19 14:30] VITALS: BP 95/56; PULSE 87; RESP 16; TEMP 36.8; O2SAT 98
--- NOTE | 2020-04-19 15:43 | PN_ITS ---
Patient Problems: Active and Suspected Problems (Last Reviewed 10/23/19 @ 11:03 by Gill Varela) Desire for detoxification (Acute) Vitals/I&O's: Vital Signs Temp Pulse Resp BP Pulse Ox 98.6 F 68 16 100/63 98 04/19/20 08:30 04/19/20 08:30 04/19/20 08:30 04/19/20 08:30 04/19/20 08:30 Oxygen Delivery Method Room Air Weight: 107 lb Body Mass Index (BMI) 19.5 Intake and Output for Last 24 Hours 04/17/20 04/18/20 04/19/20 23:59 23:59 23:59 Intake Total 530 / 530 440 / 440 Balance 530 / 530 440 / 440 Current Medications Buprenorphine HCl (Buprenorphine Hcl 2 Mg Tab.Subl) 2 mg SL Q8H MY; Taper Stop: 04/21/20 09:59 Last Admin: 04/19/20 10:39 Dose: 2 mg Documented by: Clonidine (Clonidine Hcl 0.1 Mg Tablet) 0.1 mg PO Q8H PRN PRN PRN Reason: RESTLESSNESS Last Admin: 04/19/20 02:31 Dose: 0.1 mg Documented by: Dicyclomine HCl (Dicyclomine 10 Mg Capsule) 20 mg PO Q6H PRN PRN PRN Reason: Abdominal Discomfort Last Admin: 04/19/20 10:40 Dose: 20 mg Documented by: Gabapentin (Gabapentin 300 Mg Capsule) 300 mg PO Q8H PRN PRN PRN Reason: moderate to severe anxiety Last Admin: 04/18/20 11:41 Dose: 300 mg Documented by: Hydroxyzine Pamoate (Hydroxyzine Yu 25 Mg Capsule) 50 mg PO Q6H PRN PRN PRN Reason: mild anxiety Last Admin: 04/19/20 02:31 Dose: 50 mg Documented by: Loperamide HCl (Loperamide 2 Mg Capsule) 2 mg PO Q4H PRN PRN PRN Reason: LOOSE STOOLS Methocarbamol (Methocarbamol 750 Mg Tablet) 1,500 mg PO Q6H PRN PRN PRN Reason: MUSCLE SPASM Last Admin: 04/19/20 02:31 Dose: 1,500 mg Documented by: Ondansetron HCl (Ondansetron 8 Mg Tablet) 8 mg PO Q8H PRN PRN PRN Reason: NAUSEA Last Admin: 04/19/20 10:39 Dose: 8 mg Documented by: Sodium Chloride (0.9% Saline Lock 10 Ml Syringe) 10 - 40 ml IV UD PRN PRN Reason: SALINE FLUSH Trazodone HCl (Trazodone 100 Mg Tablet) 100 mg PO QHS PRN PRN PRN Reason: INSOMNIA Medical Necessity - Tobacco Use Smoking Status: Current every day smoker Tobacco Use: Cigarettes Assessment/Plan All Active Problems (Last Reviewed 10/23/19 @ 11:03 by Gill Varela) Desire for detoxification (Acute) The patient is a 25 year old F with a significant history of polysubstance dependence; IV drug use heroin, methamphetamine and cigarette smoking was admitted for medical stabilization for acute opioid withdrawal syndrome 1. Acute opioid withdrawal syndrome with history of chronic opioid use and dependence and tolerance: Patient is admitted on PCU. On buprenorphine scheduled and taper dose along with other supportive medications including ga bapentin, dicyclomine, hydroxyzine, methocarbamol and clonidine. Patient is also on trazodone and Imodium as needed. CINA score monitoring. 2. Tobacco abuse Counseled to quit Declined nicotine patch prescribed. Three-point chronic hepatitis C with elevated transaminases: ALT is twice AST. ALT and AST are stable with not significant difference between consecutive days level. She reports treatment for hepatitis C. DVT prophylaxis Low risk Encourage to ambulate Inpatient E&M: 75040 Subs Hosp L2
[2020-04-19 22:22] VITALS: BP 107/66; PULSE 69; RESP 16; TEMP 36.8; O2SAT 96
[2020-04-20] MEDS: Buprenorphine HCl 2 MG TAB.SUBL SL ×3 (02:40→21:06)
[2020-04-20 02:41] VITALS: BP 98/62; PULSE 66; RESP 16; TEMP 36.8; O2SAT 98
[2020-04-20 08:41] VITALS: BP 103/66; PULSE 73; RESP 16; TEMP 36.6; O2SAT 97
[2020-04-20] MEDS: Methocarbamol 750 MG Tablet 1500 MG PO ×2 (10:23→21:06)
--- NOTE | 2020-04-20 14:37 | PCM.PN.HOSP ---
Patient Problems: Active and Suspected Problems (Last Reviewed 10/23/19 @ 11:03 by Gill Varela) Desire for detoxification (Acute) Objective: Seen and examined. Patient is awake and alert and oriented x3. She is admitted along with her boyfriend for medical stabilization of opioid withdrawal Physical exam General: Alert, Oriented x3, Cooperative HEENT: Atraumatic, PERRLA, EOMI, Normocephalic Oral: No Gingival or Mucosal Lesions/ Ulcerations Neck: Supple, No JVD, Negative Carotid Bruits Lungs: Air entry equal in bilateral lung bases. No crepitation/rhonchi Cardiovascular: Regular rate, Regular Rhythm, Normal S1, Normal S2, No murmurs Abdomen: Bowel Sounds Present, Soft, Non Tender, Non-Distended : No renal angle tenderness. No suprapubic tenderness. Extremities: No edema, Capillary Refill Less than 3 Seconds Skin: No rashes, No breakdown Musculoskeletal: No Tenderness to Palpation of Joints or Extremities Neurological: Cranial nerves II-XII grossly intact, Deep Tendon Reflexes 2+/4 and Symmetrical, Neuro grossly intact Psych/Mental Status: Normal Affect, Appropriate. Vitals/I&O's: Vital Signs Temp Pulse Resp BP Pulse Ox 97.9 F 73 16 103/66 97 04/20/20 08:41 04/20/20 08:41 04/20/20 08:41 04/20/20 08:41 04/20/20 08:41 Oxygen Delivery Method Room Air Weight: 107 lb Body Mass Index (BMI) 19.5 Intake and Output for Last 24 Hours 04/18/20 04/19/20 04/20/20 23:59 23:59 23:59 Intake Total 530 / 530 560 / 560 550 / 550 Balance 530 / 530 560 / 560 550 / 550 Current Medications Buprenorphine HCl (Buprenorphine Hcl 2 Mg Tab.Subl) 2 mg SL Q12H MY; Taper Stop: 04/21/20 09:59 Last Admin: 04/20/20 10:23 Dose: 2 mg Documented by: Clonidine (Clonidine Hcl 0.1 Mg Tablet) 0.1 mg PO Q8H PRN PRN PRN Reason: RESTLESSNESS Last Admin: 04/19/20 02:31 Dose: 0.1 mg Documented by: Dicyclomine HCl (Dicyclomine 10 Mg Capsule) 20 mg PO Q6H PRN PRN PRN Reason: Abdominal Discomfort Last Admin: 04/19/20 17:26 Dose: 20 mg Documented by: Gabapentin (Gabapentin 300 Mg Capsule) 300 mg PO Q8H PRN PRN PRN Reason: moderate to severe anxiety Last Admin: 04/18/20 11:41 Dose: 300 mg Documented by: Hydroxyzine Pamoate (Hydroxyzine Yu 25 Mg Capsule) 50 mg PO Q6H PRN PRN PRN Reason: mild anxiety Last Admin: 04/19/20 02:31 Dose: 50 mg Documented by: Loperamide HCl (Loperamide 2 Mg Capsule) 2 mg PO Q4H PRN PRN PRN Reason: LOOSE STOOLS Methocarbamol (Methocarbamol 750 Mg Tablet) 1,500 mg PO Q6H PRN PRN PRN Reason: MUSCLE SPASM Last Admin: 04/20/20 10:23 Dose: 1,500 mg Documented by: Ondansetron HCl (Ondansetron 8 Mg Tablet) 8 mg PO Q8H PRN PRN PRN Reason: NAUSEA Last Admin: 04/19/20 10:39 Dose: 8 mg Documented by: Sodium Chloride (0.9% Saline Lock 10 Ml Syringe) 10 - 40 ml IV UD PRN PRN Reason: SALINE FLUSH Trazodone HCl (Trazodone 100 Mg Tablet) 100 mg PO QHS PRN PRN PRN Reason: INSOMNIA Medical Necessity - Tobacco Use Smoking Status: Current every day smoker Tobacco Use: Cigarettes Assessment/Plan All Active Problems (Last Reviewed 10/23/19 @ 11:03 by Gill Varela) Desire for detoxification (Acute) The patient is a 25 year old F with a significant history of polysubstance dependence; IV drug use heroin, methamphetamine and cigarette smoking was admitted for medical stabilization for acute opioid withdrawal syndrome 1. Acute opioid withdrawal syndrome with history of chronic opioid use and dependence and tolerance: Patient is admitted on PCU. On buprenorphine scheduled and taper dose along with other supportive medications including gabapentin, dicyclomine, hydroxyzine, methocarbamol and clonidine. Patient is also on trazodone and Imodium as needed. CINA score monitoring. 04/20: Withdrawal symptoms are much improved. Denies hallucination, delusion, or weird dreams. Anxiety symptoms are well controlled. Diarrhea has improved. 2. Tobacco abuse Counseled to quit Declined nicotine patch prescribed. Three-point chronic hepatitis C with elevated transaminases: ALT is twice AST. ALT and AST are stable with no significant difference between consecutive liver chemistry tests She reports treatment for hepatitis C. DVT prophylaxis Low risk Encourage to ambulate Inpatient E&M: 62156 Subs Hosp L2
[2020-04-20 14:40] VITALS: BP 100/69; PULSE 87; RESP 18; TEMP 36.6; O2SAT 100
[2020-04-20 20:57] VITALS: BP 94/60; PULSE 76; RESP 16; TEMP 36.8; O2SAT 100
[2020-04-20] MEDS: Ondansetron 8 MG Tablet PO (21:06)
[2020-04-21 03:10] VITALS: BP 101/54; PULSE 80; RESP 18; TEMP 36.8; O2SAT 96
--- NOTE | 2020-04-21 07:29 | DCINST_ITS ---
- Discharge Diagnoses Current Active Problems: Current Active and Chronic Problems (Last Reviewed 10/23/19 @ 11:03 by Gill Varela) Desire for detoxification (Acute) Migraine headache (Chronic) Depression (Chronic) Polysubstance abuse (Chronic) Heroin use (Chronic) Methamphetamine use (Chronic) You will use the following diet at home:: Regular Your food should be the consistency of: Regular Discharge Activity: Return to Normal Activity, May not drive while taking narcotic pain medications. Weight Bearing Status: Weight bearing as tolerated Call your doctor if you observe: Fever of 101 or Higher, Coldness, Increased Pain, Numbness or Tingling, Change in Color, Inability to urinate, Inability to have a bowel movement, Shortness of breath, Dizziness, Swelling in the ankles, Chest pain, Prolonged hiccoughing, Increased palpitations (irregular heartbeat), Calf discomfort, Uncontrolled pain Additional Instructions: Follow-up outpatient opioid rehab program as scheduled by [facility] program Allergies/Adverse Reactions: Allergies No Known Allergies Allergy (Verified 04/17/20 23:17) Medications to take at Discharge NK 04/17/20 Primary Care Physician: Cirilo Saldivar MD [Primary Care Provider] - Please follow up with your Primary Care Physician in: in 2 weeks Test Results: Test results from this visit will be discussed in further detail at your follow- up appointment, if applicable.
--- NOTE | 2020-04-21 07:39 | PCM.DC.SUM ---
Discharge Date and Diagnosis - Problem List Patient Problems: Active and Suspected Problems (Last Reviewed 10/23/19 @ 11:03 by Gill Varela) Desire for detoxification (Acute) Date of Admission: 04/18/20 Date of Discharge: 04/21/20 - Primary Discharge Diagnosis Acute Problems: Active Problems (Last Reviewed 10/23/19 @ 11:03 by Gill Varela) Desire for detoxification (Acute) - Secondary Discharge Diagnosis Chronic Problems: Chronic Problems (Last Reviewed 10/23/19 @ 11:03 by Gill Varela) Migraine headache (Chronic) Depression (Chronic) Polysubstance abuse (Chronic) Heroin use (Chronic) Methamphetamine use (Chronic) Hospital Course and Treatment Operations: None Summary of Care Provided: The patient is a 25 year old F with a significant history of polysubstance dependence; IV drug use heroin, methamphetamine and cigarette smoking was admitted for medical stabilization for acute opioid withdrawal syndrome 1. Acute opioid withdrawal syndrome with history of chronic opioid use and dependence and tolerance: Patient admitted on PCU. On buprenorphine scheduled and taper dose along with other supportive medications including gabapentin, dicyclomine, hydroxyzine, methocarbamol and clonidine. Patient is also on trazodone and Imodium as needed. CINA score monitoring was done. Withdrawal symptoms are much improved. Denies hallucination, delusion, or weird dreams. Anxiety symptoms are well controlled. Diarrhea has improved. Patient is discharged home with follow-up with outpatient drug rehab. 2. Tobacco abuse Counseled to quit Declined nicotine patch prescribed. 3. chronic hepatitis C with elevated transaminases: ALT is twice AST. ALT and AST are stable with no significant difference between consecutive liver chemistry tests She reports treatment for hepatitis C. follow-up with PCP to further evaluate HCVRNA. DVT prophylaxis Low risk Encourage to ambulate Discharge medication reconciliation done. Discharge follow-up instructions completed. Discharge process discussed with the patient and all questions were answered to patient's satisfaction. Patient Problems: Active and Suspected Problems (Last Reviewed 10/23/19 @ 11:03 by Gill Varela) Desire for detoxification (Acute) Objective: Patient heart rate and blood pressure in normal range. Symptoms of anxiety, restlessness are well controlled. No nausea, vomiting or diarrhea. Physical exam General: Alert, Oriented x3, Cooperative HEENT: Atraumatic, PERRLA, EOMI, Normocephalic Oral: No Gingival or Mucosal Lesions/ Ulcerations Neck: Supple, No JVD, Negative Carotid Bruits Lungs: Air entry equal in bilateral lung bases. No crepitation/rhonchi Cardiovascular: Regular rate, Regular Rhythm, Normal S1, Normal S2, No murmurs Abdomen: Bowel Sounds Present, Soft, Non Tender, Non-Distended : No renal angle tenderness. No suprapubic tenderness. Extremities: No edema, Capillary Refill Less than 3 Seconds Skin: No rashes, No breakdown Musculoskeletal: No Tenderness to Palpation of Joints or Extremities Neurological: Cranial nerves II-XII grossly intact, Deep Tendon Reflexes 2+/4 and Symmetrical, Neuro grossly intact Psych/Mental Status: Normal Affect, Appropriate. - Physical Exam Vitals/I&O's: Vital Signs Temp Pulse Resp BP Pulse Ox 98.2 F 80 18 101/54 L 96 04/21/20 03:10 04/21/20 03:10 04/21/20 03:10 04/21/20 03:10 04/21/20 03:10 Oxygen Delivery Method Room Air Weight: 107 lb Body Mass Index (BMI) 19.5 Intake and Output for Last 24 Hours 04/19/20 04/20/20 04/21/20 23:59 23:59 23:59 Intake Total 560 / 560 1150 / 1390 240 / 240 Balance 560 / 560 1150 / 1390 240 / 240 Current Medications Buprenorphine HCl (Buprenorphine Hcl 2 Mg Tab.Subl) 2 mg SL Q12H MY; Taper Stop: 04/21/20 09:59 Last Admin: 04/20/20 21:06 Dose: 2 mg Documented by: Clonidine (Clonidine Hcl 0.1 Mg Tablet) 0.1 mg PO Q8H PRN PRN PRN Reason: RESTLESSNESS Last Admin: 04/19/20 02:31 Dose: 0.1 mg Documented by: Dicyclomine HCl (Dicyclomine 10 Mg Capsule) 20 mg PO Q6H PRN PRN PRN Reason: Abdominal Discomfort Last Admin: 04/19/20 17:26 Dose: 20 mg Documented by: Gabapentin (Gabapentin 300 Mg Capsule) 300 mg PO Q8H PRN PRN PRN Reason: moderate to severe anxiety Last Admin: 04/18/20 11:41 Dose: 300 mg Documented by: Hydroxyzine Pamoate (Hydroxyzine Yu 25 Mg Capsule) 50 mg PO Q6H PRN PRN PRN Reason: mild anxiety Last Admin: 04/19/20 02:31 Dose: 50 mg Documented by: Loperamide HCl (Loperamide 2 Mg Capsule) 2 mg PO Q4H PRN PRN PRN Reason: LOOSE STOOLS Methocarbamol (Methocarbamol 750 Mg Tablet) 1,500 mg PO Q6H PRN PRN PRN Reason: MUSCLE SPASM Last Admin: 04/20/20 21:06 Dose: 1,500 mg Documented by: Ondansetron HCl (Ondansetron 8 Mg Tablet) 8 mg PO Q8H PRN PRN PRN Reason: NAUSEA Last Admin: 04/20/20 21:06 Dose: 8 mg Documented by: Sodium Chloride (0.9% Saline Lock 10 Ml Syringe) 10 - 40 ml IV UD PRN PRN Reason: SALINE FLUSH Trazodone HCl (Trazodone 100 Mg Tablet) 100 mg PO QHS PRN PRN PRN Reason: INSOMNIA Home Medications: Medications to take at Discharge NK 04/17/20 Primary Care Physician: Cirilo Saldivar MD [Primary Care Provider] - Medical Necessity - Tobacco Use Smoking Status: Current every day smoker Tobacco Use: Cigarettes Meaningful Use Info Meaningful Use Diagnoses (Choose all that apply): None applicable Inpatient E&M: 49583 [facility]
[2020-04-21 09:00] VITALS: BP 101/54; PULSE 80; RESP 18; TEMP 36.8; O2SAT 96
== END 2020-04-21 10:45 | disposition home or self-care (01) ==
LOC: ED 04-18 00:13 → PCU 04-18 06:30
PROVIDERS: Admitting Provider Hospitalist; Emergency Provider Emergency Medicine; PCP Family Medicine; Visit Provider Internal Medicine
DX: F11.23 Opioid dependence with withdrawal (principal); F17.210 Nicotine dependence, cigarettes, uncomplicated; F15.90 Other stimulant use, unspecified, uncomplicated; B18.2 Chronic viral hepatitis C
CPT/HCPCS: 36415; 80053; 80076; 80307; 80320; 81025; 85025; 99283; 99406; H0012; G0480

== ENCOUNTER 2020-08-01 18:21 | Emergency (ER) | payer MEDICAID, SELFPAY ==
[2020-08-01 18:21] VITALS: BP 135/78; PULSE 93; RESP 18; TEMP 36.6; O2SAT 100; BMI 22.4
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
[2020-08-01 19:16] VITALS: BP 116/77; PULSE 85; RESP 18
== END 2020-08-01 19:17 | disposition home or self-care (01) ==
LOC: ED 18:47
PROVIDERS: Emergency Provider Emergency Medicine; PCP Family Medicine
DX: S16.1XXA Strain of muscle, fascia and tendon at neck level, initial encounter (principal); S20.219A Contusion of unspecified front wall of thorax, initial encounter; V89.2XXA Person injured in unspecified motor-vehicle accident, traffic, initial encounter; Y93.89 Activity, other specified; Y92.410 Unspecified street and highway as the place of occurrence of the external cause; Y99.9 Unspecified external cause status; Z72.0 Tobacco use
CPT/HCPCS: 71046; 72040; 93005; 99282

== ENCOUNTER 2020-09-10 22:37 | Observation (INO) | payer MEDICAID, SELFPAY ==
[2020-09-10 22:38] VITALS: BP 112/72; PULSE 95; RESP 16; TEMP 36.7; O2SAT 97; BMI 21.9
--- NOTE | 2020-09-10 23:56 | EDS_ITS ---
HPI History of Present Illness Chief Complaint: Substance Abuse Informant: patient Narrative Narrative: 25-year-old female presenting requesting detox. Patient states she uses heroin approximately 1 g/day. She has been using for the last 2 weeks. She states prior to that she was sober for approximately 90 days. She denies alcohol or other drug use. She last used today. Denies other complaints. Prior similar symptoms: Yes Recent Illness/Hospitalization: No PFSH PFSH Medical History (Updated 09/10/20 @ 23:[address] Ara Montanez MD) Anxiety Substance abuse Home Medications NK 04/17/20 [History Last Taken Unknown] Allergy/AdvReac Type Severity Reaction Status Date / Time No Known Allergies Allergy Verified 09/10/20 22:40 Social History (Updated 10/23/19 @ 11:[address] Albina Christine MD) Smoking Status: Current every day smoker alcohol intake: never substance use type: does not use caffeine: Yes what type of physical activity do you participate in: none seatbelt use: always do you feel safe at home: Yes additional social history: boyfriend- satinder single- [employer] ROS ROS ED Constitutional Constitutional ED: Denies fever(s) Eyes Eyes: Denies change in vision ENT ENT ED: Denies rhinorrhea or sore throat Cardiovascular Cardiovascular: Denies chest pain or palpitations Respiratory/Chest Respiratory/Chest: Denies cough or dyspnea Gastrointestinal Gastrointestinal: Denies abdominal pain, diarrhea, nausea or vomiting Genitourinary Genitourinary ED: Denies dysuria Musculoskeletal Musculoskeletal: Denies myalgias Integumentary Denies rash Neurologic Neurologic: Denies headache(s) Psychiatric Psychiatric: Denies suicidal thoughts EXAM Physical Exam Const Vital Signs: 09/10/20 22:38 Temperature 98.1 F Temperature Source Temporal Pulse Rate 95 Respiratory Rate 16 Blood Pressure 112/72 Blood Pressure Mean 85 Pulse Ox 97 Oxygen Delivery Method Room Air Positive well nourished and well developed General Appearance ED: well developed HEENT Reports normocephalic and head/scalp atraumatic Eyes PERRL and EOMs intact bilaterally Neck supple General: Negative for tenderness Chest Wall inspection of chest normal Resp normal respiratory effort and clear to auscultation bilaterally Cardio regular rate and regular rhythm GI non-tender and non-distended Palpation: soft; Negative for guarding or rebound tenderness present no CVA tenderness Extremity Extremity Narrative: Track sweeney bilateral upper extremity with no signs of infection Neuro oriented x3 Sensorium / Orientation: alert Psych mental status grossly normal MDM MDM MDM Narrative Medical decision making narrative: Patient is requesting detox. Labs are pending. Discussed with hospitalist. Patient will be admitted. Lab Data Labs: Laboratory Results - last 24 hr 09/10/20 23:46 Ur Drug Screen Comment Discharge Plan Triage Chief Complaint: Substance Abuse ED Provider: Ara Montanez Dx/Rx/DC Orders Clinical Impression: Heroin use Prescriptions: No Action NK RF: 0 Primary Care Provider: Cirilo Saldivar Referrals: Cirilo Saldivar MD [Primary Care Provider] - Disposition Disposition: Acute Care Hospital [facility]
[2020-09-11 00:01] LABS: Alcohol, Blood (Medical)-Serum < 3.0 mg/dL
[2020-09-11 00:02] LABS: Internal QC Validated? YES +Cl - CLEAR BKGD; Pregnancy, Serum, hCG Quali. NEGATIVE Negative
[2020-09-11 00:05] LABS: ALB/GLOB Ratio 0.9 RATIO (0.9-2.4); AST(SGOT) 36 U/L (15-37); Alanine Aminotransfer ALT/SGPT 58 U/L (13-56); Albumin, Serum 3.3 g/dL (3.2-5.0); Alkaline Phosphatase 86 U/L (45-117); Anion Gap 3 (5-15); BUN 10 mg/dL (7-18); BUN/Creat Ratio 16.3 RATIO (10-20); Calcium,Total 8.8 mg/dL (8.5-10.1); Chloride 105 mmol/L (98-107); Creatinine, Serum 0.62 mg/dL (0.55-1.02); EST Glomerular Filtration Rate 125 mL/min (>60); Est Glom Filt Rate - Afr Amer 152 mL/min (>60); Estimated Creatinine Clearance 109.71 ml/min; Globulin 3.5 g/dL (2.2-4.2); Glucose 82 mg/dL (74-106); Protein, Total 6.8 g/dL (6.4-8.2); Sodium Level 139 mmol/L (136-145)
[2020-09-11 00:12] LABS: Amphetamine Urine VISTA POSITIVE (<1000 ng/mL); Barbiturate Urine VISTA NEGATIVE (< 200 ng/mL); Benzodiazepine Urine VISTA NEGATIVE (< 200 ng/mL); Cocaine Urine VISTA NEGATIVE (< 300 ng/mL); Ecstacy Urine VISTA POSITIVE (< 500 ng/mL); Methadone Urine VISTA NEGATIVE (< 300 ng/mL); PCP Urine VISTA NEGATIVE (< 25 ng/mL); THC Urine VISTA NEGATIVE (< 50 ng/mL); Vista UDS pH Range 7
[2020-09-11 00:24] VITALS: BP 112/76; PULSE 78; RESP 18; TEMP 36.9; O2SAT 100
[2020-09-11 00:35] VITALS: BMI 21.6
[2020-09-11 01:00] VITALS: BP 120/85; PULSE 80; RESP 16; TEMP 36.7; O2SAT 100
--- NOTE | 2020-09-11 01:20 | HP.PCM.HOS_ITS ---
HPI - General General Date of Admission: 09/11/20 Chief Complaint: Desire for detoxification HPI Narrative BERNARDO LAN, is a 25 F with a significant history of hepatitis C; anxiety disorder; tobacco abuse and IV drug use who presents to the emergency department for detoxification. Patient's drug of choice is heroin. She has been using heroin for about 6 years. She uses about 1 g a day. She was clean for about 90 days but she started reusing about 2 weeks ago. She denies any doris withdrawal. [facility] Medical History Anxiety Substance abuse Home Medications NK 04/17/20 [History Last Taken Unknown] Allergy/AdvReac Type Severity Reaction Status Date / Time No Known Allergies Allergy Verified 09/10/20 22:40 Family History (Updated 09/11/20 @ 01:[address] Guillermo Ching MD) Other Alcoholism Cancer Diabetes Heart disease no surgical history Social History Smoking Status: Current every day smoker alcohol intake: never substance use type: does not use caffeine: Yes what type of physical activity do you participate in: none seatbelt use: always do you feel safe at home: Yes additional social history: boyfriend- satinder single- [employer] ROS ROS Narrative 12 point review of system is negative except as stated in HPI. Vital Signs Vital Signs Vital Signs: 09/10/20 22:38 09/11/20 00:24 Temperature 98.1 F 98.4 F Temperature Source Temporal Oral Pulse Rate 95 78 Respiratory Rate 16 18 Blood Pressure 112/72 112/76 Blood Pressure Mean 85 88 Pulse Ox 97 100 Oxygen Delivery Method Room Air Room Air Physical Exam Narrative Alert and oriented x3 Nontraumatic; normocephalic Lung clear to auscultate Heart sounds S1-S2. No murmur, gallop or rubs. Abdomen bowel sounds present soft, nontender nondistended Extremity without edema cyanosis or clubbing. Lab / Micro Data Result Diagrams: 09/10/20 23:40 09/10/20 23:40 Labs: Laboratory Results - last 24 hr 09/10/20 09/10/20 09/10/20 23:40 23:40 23:40 Sodium 139 Potassium 4.0 Chloride 105 Carbon Dioxide 31.0 Anion Gap 3 L BUN 10 Creatinine 0.62 Estim Creat Clear Calc 109.71 Est GFR (MDRD) Af Amer 152 Est GFR (MDRD) Non-Af 125 BUN/Creatinine Ratio 16.3 Glucose 82 Calcium 8.8 Total Bilirubin 0.20 AST 36 ALT 58 H Alkaline Phosphatase 86 Total Protein 6.8 Albumin 3.3 Globulin 3.5 Albumin/Globulin Ratio 0.9 Serum , Qual NEGATIVE Urine Opiates Screen Urine Methadone Screen Ur Barbiturates Screen Ur Phencyclidine Scrn Ur Amphetamines Screen U Methamphetamin-MDMA U Benzodiazepines Scrn Urine Cocaine Screen U Cannabinoids Screen Ur Drug Screen Comment Ethyl Alcohol < 3.0 09/10/20 23:46 Sodium Potassium Chloride Carbon Dioxide Anion Gap BUN Creatinine Estim Creat Clear Calc Est GFR (MDRD) Af Amer Est GFR (MDRD) Non-Af BUN/Creatinine Ratio Glucose Calcium Total Bilirubin AST ALT Alkaline Phosphatase Total Protein Albumin Globulin Albumin/Globulin Ratio Serum , Qual Urine Opiates Screen POSITIVE H Urine Methadone Screen NEGATIVE Ur Barbiturates Screen NEGATIVE Ur Phencyclidine Scrn NEGATIVE Ur Amphetamines Screen POSITIVE H U Methamphetamin-MDMA POSITIVE H U Benzodiazepines Scrn NEGATIVE Urine Cocaine Screen NEGATIVE U Cannabinoids Screen NEGATIVE Ur Drug Screen Comment Ethyl Alcohol Assessment & Plan Assessment/Plan (1) Desire for detoxification: (2) Heroin use: (3) Tobacco abuse: PLAN: BERNARDO LAN, is a 25 F with a significant history of hepatitis C; anxiety disorder; tobacco abuse and IV drug use who presents to the emergency department for detoxification Opioid dependence and withdrawal Patient be started on Subutex and other adjunctive medications: Gabapentin as needed; dicyclomine as needed; Vistaril as needed; methocarbamol as needed; clonidine as needed; Imodium as needed; trazodone as needed and Zofran as needed. Monitor COWS and CINA score Tobacco abuse Counseled Declined nicotine patch. Declined nicotine gum. DVT prophylaxis Low risk Encourage to ambulate Visit Charges Inpatient E&M: 83652 Init Hosp L2
[2020-09-11 05:38] VITALS: BP 110/60; PULSE 81; RESP 16; TEMP 37.3; O2SAT 95
--- NOTE | 2020-09-11 10:48 | ADDICTION ---
Client requested to meet with this radio script writer tomorrow, 09/12, after she has a chance to rest.
[2020-09-11 12:22] VITALS: BP 114/62; PULSE 82; RESP 18; TEMP 37.1; O2SAT 98
[2020-09-11] MEDS: Ibuprofen 400 MG Tablet PO (13:29)
[2020-09-11 16:36] VITALS: BP 118/71; PULSE 82; RESP 18; TEMP 36.9; O2SAT 98
[2020-09-11] MEDS: Buprenorphine HCl 2 MG TAB.SUBL SL (16:38)
[2020-09-11] MEDS: Methocarbamol 750 MG Tablet 1500 MG PO (16:38)
[2020-09-11] MEDS: Ondansetron 8 MG Tablet PO (16:38)
[2020-09-11] MEDS: hydrOXYzine PAM 25 MG Capsule 50 MG PO (16:38)
[2020-09-11 20:25] VITALS: BP 116/74; PULSE 74; RESP 16; TEMP 36.8; O2SAT 98
[2020-09-12 00:28] VITALS: BP 104/64; PULSE 76; RESP 16; TEMP 37.1; O2SAT 98
[2020-09-12] MEDS: Buprenorphine HCl 2 MG TAB.SUBL SL ×3 (00:29→16:34)
[2020-09-12 05:31] VITALS: BP 118/66; PULSE 87; RESP 16; TEMP 36.7; O2SAT 97
[2020-09-12 09:00] VITALS: BP 102/61; PULSE 63; RESP 16; TEMP 37.1; O2SAT 100
--- NOTE | 2020-09-12 10:13 | ADDICTION ---
This racebook writer attempted to meet with PT to complete assessments. PT did not rouse for this racebook writer. PT to be seen at later visit.
[2020-09-12 15:00] VITALS: BP 96/54; PULSE 78; RESP 18; TEMP 37.5; O2SAT 98
--- NOTE | 2020-09-12 15:38 | PCM.PN.HOSP ---
Subjective Subjective Patient seen and examined. No acute events. No new complains. Objective Data Objective Data Vital Signs: Vital Signs Temp Pulse Resp BP Pulse Ox 98.7 F 63 16 102/61 100 09/12/20 09:00 09/12/20 09:00 09/12/20 09:00 09/12/20 09:00 09/12/20 09:00 Oxygen Delivery Method Room Air Weight: 53.7 kg Body Mass Index (BMI) 21.6 Intake & Output: Intake and Output for Last 24 Hours 09/10/20 09/11/20 09/12/20 23:59 23:59 23:59 Intake Total 120 / 120 Balance 120 / 120 Lab / Micro Data Result Diagrams: 09/10/20 23:40 09/10/20 23:40 Physical Exam Narrative Physical exam: General: Alert, Oriented x3, Cooperative, No apparent distress, Well developed HEENT: Atraumatic Oral: Moist Mucosa Neck: Supple Lungs: Clear to auscultation Cardiovascular: HS I+II, regular, no murmurs Abdomen: Bowel Sounds Present, Soft, Non Tender Extremities: No edema Skin: No rashes, No breakdown Neurological: Grossly intact Psych/Mental Status: Appropriate Assessment & Plan Assessment/Plan (1) Desire for detoxification: (2) Heroin use: (3) Tobacco abuse: PLAN: 1. Acute opioid withdrawal, improving, continue on Subutex withdrawal protocol Patient continues to require medication and monitoring for withdrawal based on regular assessment and remains appropriate for ASAM level 4.0 2. Nicotine dependence, advised to quit 3. Chronic Hep C, complicates care, needs to be followed up in outpatient Visit Charges Inpatient E&M: 65553 Subs Hosp L2
[2020-09-12 22:10] VITALS: BP 97/61; PULSE 65; RESP 16; TEMP 36.7; O2SAT 98
[2020-09-12] MEDS: Ibuprofen 400 MG Tablet PO (22:15)
[2020-09-13] MEDS: Buprenorphine HCl 2 MG TAB.SUBL SL ×2 (00:14→08:44)
[2020-09-13 03:07] VITALS: BP 100/68; PULSE 62; RESP 16; TEMP 36.8; O2SAT 97
[2020-09-13] MEDS: Ondansetron 8 MG Tablet PO (03:12)
[2020-09-13 08:42] VITALS: BP 111/74; PULSE 75; RESP 18; TEMP 37.6; O2SAT 99
--- NOTE | 2020-09-13 12:23 | PCM.DC ---
Discharge Instructions Diet Discharge Diet: No restrictions Activity Discharge Activity: Return to Normal Activity Follow Up Care Test Results: Test results from this visit will be discussed in further detail at your follow-up appointment, if applicable. Discharge Plan Admission Admit Date/Time: 09/11/20 01:09 Primary Reason for Your Visit: Acute opioid withdrawal Attending Provider: Aniyah Moran Primary Care Provider: Cirilo Saldivar Instructions Additional Instructions / Restrictions: You are strongly advised to continue to avoid use of opioids. You are also advised to stop smoking. Follow-up with your outpatient drug rehab program as scheduled. Discharge Orders/Prescriptions Prescriptions: No Action NK RF: 0 Referrals / Follow Up: Cirilo Saldivar MD [Primary Care Provider] - Within 2 Weeks Disposition Disposition (needs filled in before D/C Order can be placed): Home, self care
--- NOTE | 2020-09-13 12:24 | DS.PCM_ITS ---
Providers Date of Admission: 09/11/20 Primary Care Physician: Dr. Cirilo Saldivar MD Reason For Visit: DESIRE FOR OPIOD DETOXIFICATION Diagnosis Discharge Diagnosis (1) Desire for detoxification: Status: Acute (2) Heroin use: Status: Chronic Code(s): F11.90 - Opioid use, unspecified, uncomplicated (3) Tobacco abuse: Status: Chronic Code(s): Z72.0 - Tobacco use Medications at Discharge Home Medications NK 04/17/20 Hospital Course Operations None Procedures None Summary of Care Provided Minutes Spent on Discharge: 25 Hospital Course: 25-year-old female with past medical history of chronic hep C, anxiety, nicotine dependence, IV heroin use who comes in requesting for medical stabilization. Patient admits to using about 1 g of heroin a day. [facility] and managed on opiate withdrawal protocol with Subutex. Patient however was sleeping throughout the hospital stay, she was not interested in proceeding care. She was followed up by food counter worker from 1 ED but was not interested in talking to them. She was noted on Subutex for the most part because she was always sleeping. She was discharged in a stable condition. Physical Exam Narrative General: Alert,lethargic, no apparent distress, well developed HEENT: Atraumatic Oral: Moist Mucosa Neck: Supple Lungs: Clear to auscultation Cardiovascular: HS I+II, regular, no murmurs Abdomen: Bowel Sounds Present, Soft, Non Tender Extremities: No edema Skin: No rashes, No breakdown Neurological: Grossly intact Psych/Mental Status: Appropriate ABG / Lab / Microbiology Data Result Diagrams: 09/10/20 23:40 09/10/20 23:40 D/C Instructions Discharge Diet: No restrictions Discharge Activity: Return to Normal Activity Meaningful Use Info Meaningful Use Diagnoses (Choose all that apply): None applicable Discharge Plan Admission Admit Date/Time: 09/11/20 01:09 Primary Reason for Your Visit: Acute opioid withdrawal Attending Provider: Aniyah Moran Primary Care Provider: Cirilo Saldivar Instructions Additional Instructions / Restrictions: You are strongly advised to continue to avoid use of opioids. You are also advised to stop smoking. Follow-up with your outpatient drug rehab program as scheduled. Discharge Orders/Prescriptions Prescriptions: No Action NK RF: 0 Referrals / Follow Up: Cirilo Saldivar MD [Primary Care Provider] - Within 2 Weeks Disposition Disposition (needs filled in before D/C Order can be placed): Home, self care Visit Charges Inpatient E&M: 82310 Disch Hosp
--- NOTE | 2020-09-13 12:53 | NURSING ---
PT STATES SHE WANTS TO GO HOME TODAY. CORTEXT TO DR SCHERER REGARDING SAME. NEW DC ORDERS RECEIVED.
== END 2020-09-13 12:55 | disposition home or self-care (01) ==
LOC: ED 23:58 → MS3 09-11 01:14
PROVIDERS: Admitting Provider Hospitalist; Emergency Provider Emergency Medicine; PCP Family Medicine; Visit Provider Internal Medicine
DX: F11.23 Opioid dependence with withdrawal (principal); B18.2 Chronic viral hepatitis C; F17.200 Nicotine dependence, unspecified, uncomplicated
CPT/HCPCS: 36415; 80053; 80307; 82077; 84703; 99283; H0012

== ENCOUNTER 2020-11-01 19:05 | Observation (INO) | payer MEDICAID, SELFPAY ==
[2020-11-01 19:07] VITALS: BP 130/76; PULSE 95; RESP 29; TEMP 35.9; O2SAT 99; BMI 20.4
--- NOTE | 2020-11-01 20:23 | CT_ITS ---
STUDY: CT BRAIN WITHOUT CONTRAST REASON FOR EXAM: Female, 25 years old. Altered mental status. RADIATION DOSAGE (If Supplied By Facility): CTDIvol = ( 44.99 ) mGy, DLP = ( 745.49 ) mGycm TECHNIQUE: Transaxial CT imaging of the brain was performed without administration of intravenous contrast material. Individualized dose optimization techniques were used for this CT. COMPARISON: No relevant priors. FINDINGS: Normal soft tissue structures. Normal calvarium. Normal size ventricles and extra-axial spaces for the patient''s age. Normal white matter tracts of the cerebral hemispheres. Normal basal ganglia and thalami. Normal brainstem. Normal cerebellum. There is no intracranial hemorrhage. There are no findings of an acute ischemic infarction. Normal visualized paranasal sinuses. CT/Brain/Head without Contrast IMPRESSION: Normal unenhanced CT scan of the brain. Electronically Signed: Daniele Vazquez DO at 21:32 EDT Tel [phone], Service support ,
--- NOTE | 2020-11-01 20:25 | EDS_ITS ---
HPI History of Present Illness Chief Complaint: Alt LOC Informant: EMS Onset/Context/Timing Onset: Today Timing: Continuous Narrative Narrative: Patient presents with abnormal behavior and shortness of breath by EMS. The patient is sleeping on evaluation and refuses to answer questions. Patient is a poor historian. EMS reports that the patient was moaning and was stating she is unable to walk. Patient has a history of methamphetamine and heroin abuse. [facility] Medical History Anxiety Substance abuse Home Medications NK 04/17/20 [History Last Taken Unknown] Allergy/AdvReac Type Severity Reaction Status Date / Time No Known Allergies Allergy Verified 11/01/20 19:09 Family History (Updated 09/11/20 @ 01:[address] Guillermo Ching MD) Other Alcoholism Cancer Diabetes Heart disease Social History Smoking Status: Current every day smoker tobacco type: cigarettes alcohol intake: never substance use type: does not use caffeine: Yes what type of physical activity do you participate in: none seatbelt use: always do you feel safe at home: Yes additional social history: boyfriend- satinder single- [employer] ROS ROS ED Review of Systems ROS Unobtainable: due to mental status EXAM Physical Exam Const Vital Signs: 11/01/20 19:07 11/01/20 20:57 11/01/20 21:13 Temperature 96.7 F L Temperature Source Temporal Pulse Rate 95 71 Respiratory Rate 29 H 25 H Respiratory Effort Normal Respiratory Pattern Normal Blood Pressure 130/76 H 126/91 H Blood Pressure Mean 94 102 Pulse Ox 99 98 Oxygen Delivery Method Room Air Room Air 11/01/20 23:00 Temperature Temperature Source Pulse Rate 85 Respiratory Rate 28 H Respiratory Effort Respiratory Pattern Blood Pressure 115/81 H Blood Pressure Mean 92 Pulse Ox 95 Oxygen Delivery Method Room Air Positive well nourished and well developed General Appearance ED: well developed HEENT Reports moist mucous membranes Resp normal respiratory effort and clear to auscultation bilaterally Cardio regular rate and regular rhythm GI normal to inspection, nondistended, normoactive bowel sounds Palpation: soft MDM MDM MDM Narrative Medical decision making narrative: Patient was given a dose of Narcan here. Patient became somewhat more alert after this. Patient is still sleeping on reevaluation. CBC shows a slight leukocytosis of 12.6. Comprehensive metabolic profile was essentially within normal limits. Anion gap was normal. Serum hCG was negative. Urine tox screen was positive for opiates, amphetamines, metha mphetamines, and cannabinoids. This is consistent with prior results. Urinalysis shows leukocyte esterase of 100 with 10-25 red blood cells and 25-50 white blood cells and 3+ bacteria. Patient was given a dose of Rocephin here. CT scan of the brain was obtained. There is no acute intracranial abnormality. This was interpreted by the radiologist and reviewed by myself. Because of the urinary tract infection, serum lactate was added. Urine culture and blood cultures were obtained. Patient does meet criteria for sepsis. Case was discussed with the hospitalist. She will admit the patient to the hospital. Lab Data Attestation: I reviewed the patient's lab results. Labs: Laboratory Results - last 24 hr 11/01/20 11/01/20 11/01/20 21:00 21:00 21:00 WBC 12.6 H RBC 4.97 Hgb 13.8 Hct 40.6 MCV 81.7 MCH 27.8 MCHC 34.0 RDW Std Deviation 33.9 L RDW Coeff of James 11.7 Plt Count 422 MPV 9.1 Immature Gran % (Auto) 0.300 Neut % (Auto) 69.6 Lymph % (Auto) 21.6 [place] % (Auto) 7.0 Eos % (Auto) 0.9 Baso % (Auto) 0.6 Absolute Neuts (auto) 8.8 H Absolute Lymphs (auto) 2.72 Nucleated RBC % 0 Sodium 137 Potassium 3.5 Chloride 103 Carbon Dioxide 25.0 Anion Gap 9 BUN 16 Creatinine 0.76 Estim Creat Clear Calc 96.29 Est GFR (MDRD) Af Amer 118 Est GFR (MDRD) Non-Af 97 BUN/Creatinine Ratio 20.9 H Glucose 108 H Calcium 10.0 Total Bilirubin 0.20 AST 47 H ALT 66 H Alkaline Phosphatase 122 H Total Protein 8.1 Albumin 3.8 Globulin 4.3 H Albumin/Globulin Ratio 0.9 Serum , Qual NEGATIVE Urine Color Urine Clarity Urine pH Ur Specific [place] Urine Protein Urine Glucose (UA) Urine Ketones Urine Occult Blood Urine Nitrite Urine Bilirubin Urine Urobilinogen Ur Leukocyte Esterase Urine RBC Urine WBC Ur Squamous Epith Cells Urine Bacteria Urine Mucus Urine Opiates Screen Urine Methadone Screen Ur Barbiturates Screen Ur Phencyclidine Scrn Ur Amphetamines Screen U Methamphetamin-MDMA U Benzodiazepines Scrn Urine Cocaine Screen U Cannabinoids Screen Ur Drug Screen Comment 11/01/20 11/01/20 22:05 22:05 WBC RBC Hgb Hct MCV MCH MCHC RDW Std Deviation RDW Coeff of James Plt Count MPV Immature Gran % (Auto) Neut % (Auto) Lymph % (Auto) [place] % (Auto) Eos % (Auto) Baso % (Auto) Absolute Neuts (auto) Absolute Lymphs (auto) Nucleated RBC % Sodium Potassium Chloride Carbon Dioxide Anion Gap BUN Creatinine Estim Creat Clear Calc Est GFR (MDRD) Af Amer Est GFR (MDRD) Non-Af BUN/Creatinine Ratio Glucose Calcium Total Bilirubin AST ALT Alkaline Phosphatase Total Protein Albumin Globulin Albumin/Globulin Ratio Serum , Qual Urine Color Yellow Urine Clarity Cloudy Urine pH 7.0 Ur Specific [place] 1.015 Urine Protein 30 H Urine Glucose (UA) Normal Urine Ketones 5 H Urine Occult Blood 50 H Urine Nitrite Negative Urine Bilirubin Negative Urine Urobilinogen 1 H Ur Leukocyte Esterase 100 H Urine RBC 10-25 SEEN Urine WBC 25-50 SEEN Ur Squamous Epith Cells 5-10 SEEN Urine Bacteria 3+ Urine Mucus 0 SEEN Urine Opiates Screen POSITIVE H Urine Methadone Screen NEGATIVE Ur Barbiturates Screen NEGATIVE Ur Phencyclidine Scrn NEGATIVE Ur Amphetamines Screen POSITIVE H U Methamphetamin-MDMA POSITIVE H U Benzodiazepines Scrn NEGATIVE Urine Cocaine Screen NEGATIVE U Cannabinoids Screen POSITIVE H Ur Drug Screen Comment Radiography Diagnostic Testing: Radiology Impression Brain CT 11/01/20 20:23 IMPRESSION: Normal unenhanced CT scan of the brain. Electronically Signed: Daniele Vazquez DO at 21:32 EDT Tel [phone], Service support , Treatment and Re-Evaluation Vital Sign Attestation:: Vital signs were reviewed prior to admission. Patient is still mildly tachypneic. Patient is afebrile. Remaining vital signs are stable. Discharge Plan Dx/Rx/DC Orders Clinical Impression: Sepsis, Polysubstance abuse, Urinary tract infection, Encephalopathy Disposition Disposition: Acute Care Hospital [facility]
[2020-11-01] MEDS: 0.9% Normal Saline 1,000 ML 1000 ML IV (20:56)
[2020-11-01] MEDS: Naloxone 2 MG/2 ML Syringe IV (20:56)
[2020-11-01 21:13] VITALS: BP 126/91; PULSE 71; RESP 25; O2SAT 98
[2020-11-01 21:13] LABS: Absolute Lymphocyte Count 2.72 X10^3/uL (0.83-4.51); Absolute Neutrophil Count 8.8 X10^3/uL (2.0-7.7); Basophil# 0.07 X10^3/uL; Basophil% 0.6 % (0-1); Eosinophil# 0.11 X10^3/uL; Eosinophils% 0.9 % (0-5); Hematocrit 40.6 % (37-47); Hemoglobin 13.8 g/dL (12.0-15.0); Lymphocyte # 2.72 X10^3/ul (0.83-4.51); Lymphocyte % 21.6 % (19-41); Mean Corpuscular Hgb 27.8 pg (27.0-32.0); Mean Corpuscular Volume 81.7 fL (81-99); Mean Platelet Vol. 9.1 fl (6.2-12.0); Monocyte# 0.88 X10^3/uL; NRBC Flagged by Analyzer 0 % (0-5); Neutrophil # 8.79 X10^3/uL (2.7-7.7); Neutrophil % 69.6 % (47-70); Platelet Count 422 K/mm3 (150-450); RBC Distribution Width CV 11.7 % (11.6-14.6); RBC Distribution Width SD 33.9 fl (35.1-43.9); Red Blood Count 4.97 M/mm3 (4.2-5.4); White Blood Count 12.6 K/mm3 (4.4-11.0)
[2020-11-01 21:22] LABS: Internal QC Validated? YES +Cl - CLEAR BKGD; Pregnancy, Serum, hCG Quali. NEGATIVE Negative
[2020-11-01 21:30] LABS: ALB/GLOB Ratio 0.9 RATIO (0.9-2.4); AST(SGOT) 47 U/L (15-37); Alanine Aminotransfer ALT/SGPT 66 U/L (13-56); Albumin, Serum 3.8 g/dL (3.2-5.0); Alkaline Phosphatase 122 U/L (45-117); Anion Gap 9 (5-15); BUN 16 mg/dL (7-18); BUN/Creat Ratio 20.9 RATIO (10-20); Chloride 103 mmol/L (98-107); Creatinine, Serum 0.76 mg/dL (0.55-1.02); EST Glomerular Filtration Rate 97 mL/min (>60); Est Glom Filt Rate - Afr Amer 118 mL/min (>60); Estimated Creatinine Clearance 96.29 ml/min; Globulin 4.3 g/dL (2.2-4.2); Glucose 108 mg/dL (74-106); Potassium 3.5 mmol/L (3.5-5.1); Protein, Total 8.1 g/dL (6.4-8.2); Sodium Level 137 mmol/L (136-145)
[2020-11-01 22:11] LABS: Color, Urine Yellow (Yellow); Glucose, Dipstick Normal (Normal); Ketone-Dipstick 5 mg/dl (Negative); Leukocyte Esterase-Dipstick 100 /ul (Negative); Mucous, Urine 0 SEEN /hpf (<or=2+); Nitrite-Dipstick Negative (Negative); Occult Blood-Urine 50 /ul (Negative); Protein-Dipstick 30 mg/dl (Negative); Specific Gravity, Urine 1.015 (1.002-1.030); Urine Bilirubin Dipstick Negative (Negative); Urine Clarity Cloudy (Clear); Urine Urobilinogen 1 mg/dl (Normal)
[2020-11-01 22:17] LABS: Bacteria 3+ /hpf (None Seen); Red Blood Cells-Urine 10-25 SEEN /hpf (0-5); Squamous Epithelial Cells - UA 5-10 SEEN /hpf (5-10); White Blood Cells 25-50 SEEN /hpf (0-5)
[2020-11-01 22:30] LABS: Amphetamine Urine VISTA POSITIVE (<1000 ng/mL); Barbiturate Urine VISTA NEGATIVE (< 200 ng/mL); Benzodiazepine Urine VISTA NEGATIVE (< 200 ng/mL); Cocaine Urine VISTA NEGATIVE (< 300 ng/mL); Ecstacy Urine VISTA POSITIVE (< 500 ng/mL); Methadone Urine VISTA NEGATIVE (< 300 ng/mL); PCP Urine VISTA NEGATIVE (< 25 ng/mL); THC Urine VISTA POSITIVE (< 50 ng/mL); Vista UDS pH Range 7
[2020-11-01] MEDS: Ceftriaxone 1 GM/50 ML BAG IV (22:47)
[2020-11-01 23:00] VITALS: BP 115/81; PULSE 85; RESP 28; O2SAT 95
--- NOTE | 2020-11-01 23:50 | HP.PCM.HOS_ITS ---
HPI - General General Date of Admission: 11/01/20 Date of Service: 11/01/20 Chief Complaint: Encephalopathy HPI Narrative The patient is a 25 y/o F w/ PMHx: Polysubstance abuse (Admitting currently only to IV heroin 1/2-1 gm daily, IV), Depression and Anxiety, Tobacco use who presents to the [facility] ED on 11/01/20 secondary to altered consciousness with EMS called and patient noted to be moaning in position with increased respiratory rate prompting ED evaluation. Initially patient was very encephalopathic and unable to really answer questions however following Narcan and IV fluids she improved and answered questions. She notes feeling poorly with general malaise and nausea but no emesis, abdominal pain, diarrhea or recent fevers or chills. She denies specifically any dysuria or frequency despite UA as noted. Patient reports last drug usage the evening prior. She notes that she might be amenable to withdrawal treatment but is currently noncommittal. Work-up in the ED included T 96.7, heart rate 95, BP 130/76, respiratory rate 29, 99% on room air, CBC with WC 12.6, hemoglobin 13.8, platelet 422 with left shift, CMP with glucose 108, lactic acid pending upon evaluation, total bilirubin 0.20, AST/LT 47/66, alk phos 122, negative testing, CT of the brain with no acute intracranial findings, urinalysis with urine protein 30, urine ketone 5, urine occult blood 50, negative nitrite, leukocyte Estrace 100, urine RBC 10-25, urine WBCs 25-50, urine bacteria 3+ with urine culture pending per ED as well as blood culture x2 pending per ED, UDS with positive opiate, amphetamine, methamphetamine and cannabis. In the ED patient administered Narcan 2 g IV x1 as well as Rocephin and normal saline bolus. COUNTS INCLUDE 234 BEDS AT THE [facility] Medical History Anxiety and depression Heroin use IV drug abuse Substance abuse Tobacco use Home Medications NK 04/17/20 [History Last Taken Unknown] Allergy/AdvReac Type Severity Reaction Status Date / Time No Known Allergies Allergy Verified 11/01/20 19:09 Family History (Updated 11/02/20 @ 00:[address] Wilma Hernandez MD) Mother Alcoholism Cancer Diabetes Heart disease Father Alcoholism Cancer Diabetes Heart disease no surgical history Social History (Updated 11/02/20 @ 00:[address] Wilma Hernandez MD) household members: none Smoking Status: Current every day smoker tobacco type: cigarettes Smoking packs per day: 1 Smoking cigarettes per day: 20.0 alcohol intake: never substance use type: marijuana, heroin, amphetamines, IV drugs and methamphetamine caffeine: Yes what type of physical activity do you participate in: none seatbelt use: always do you feel safe at home: Yes additional social history: boyfriend- satinder single- [employer] ROS ROS Narrative Admission Review of Systems: CONSTITUTIONAL: No weight loss, fever, chills, + weakness or fatigue. HEENT: Eyes: No visual loss, blurred vision, double vision or yellow sclerae. Ears, Nose, Throat: No hearing loss, sneezing, congestion, runny nose or sore throat. SKIN: No rash or itching, lesions, wounds. CARDIOVASCULAR: No chest pain, chest pressure or chest discomfort, palpitations, edema, orthopnea, syncopal events. RESPIRATORY: No shortness of breath, cough or sputum, wheezing, hemoptysis. GASTROINTESTINAL: + anorexia, nausea, No vomiting or diarrhea, abdominal pain, melena, BRBPR. GENITOURINARY: No dysuria, frequency, urgency or retention. NEUROLOGICAL: No headache, dizziness, syncope, paralysis, ataxia, numbness or tingling in the extremities, focal weakness, change in bowel or bladder control, seizure. MUSCULOSKELETAL: No muscle, back pain, joint pain or stiffness. HEMATOLOGIC: No anemia, bleeding or bruising. LYMPHATICS: No enlarged nodes. No history of splenectomy. PSYCHIATRIC: + history of depression or anxiety. ENDOCRINOLOGIC: No reports of sweating, cold or heat intolerance. No polyuria or polydipsia. ALLERGIES: No history of asthma, hives, eczema or rhinitis. Vital Signs Vital Signs Vital Signs: 11/01/20 19:07 11/01/20 20:57 11/01/20 21:13 Temperature 96.7 F L Temperature Source Temporal Pulse Rate 95 71 Respiratory Rate 29 H 25 H Respiratory Effort Normal Respiratory Pattern Normal Blood Pressure 130/76 H 126/91 H Blood Pressure Mean 94 102 Pulse Ox 99 98 Oxygen Delivery Method Room Air Room Air 11/01/20 23:00 Temperature Temperature Source Pulse Rate 85 Respiratory Rate 28 H Respiratory Effort Respiratory Pattern Blood Pressure 115/81 H Blood Pressure Mean 92 Pulse Ox 95 Oxygen Delivery Method Room Air Weight Weight: 118 lb 13.266 oz Body Mass Index (BMI) 20.4 Physical Exam Narrative Physical Examination: General: Initially sleeping but awakens, following discussions does become more alert and answering questions appropriately, has been encephalopathic initially upon ED presentation, currently oriented x3, laying in the ED bed, reports not feeling well. Skin: Normal color, normal turgor, no icterus, no cyanosis except occasional track chanelle. HEENT: AT/NC, EOMI, PERRLA, dry MM, no carotid bruits or JVD noted. Lungs: Diminished breath sounds at bases, currently appearance of moderate eff ort but difficult assessment as intermittently moaning, no rales, ronchi or wheezing. Heart: Regular rate and rhythm; no gallop, rub audible. Abdomen: Soft, NTTP, ND, mildly hyperactive BS, no HSM. Extremities: No cyanosis, clubbing, or edema. Neurological: Initially sleeping but awakens, following discussions does become more alert and answering questions appropriately, has been encephalopathic i nitially upon ED presentation, currently oriented x 3, cognitive function improving, not baseline intact; pupils equally reactive to light and accommodation, cranial nerves II-XII grossly normal, moving all 4 extremities, no focal deficits, strength moderately to severely globally decreased. Psychiatric: Affect appears fatigued, intermittent agitation, no acute evidence of depressive or anxiety feelings. Results Lab / Micro Data Result Diagrams: 11/01/20 21:00 11/01/20 21:00 Labs: Laboratory Results - last 24 hr 11/01/20 11/01/20 11/01/20 21:00 21:00 21:00 WBC 12.6 H RBC 4.97 Hgb 13.8 Hct 40.6 MCV 81.7 MCH 27.8 MCHC 34.0 RDW Std Deviation 33.9 L RDW Coeff of James 11.7 Plt Count 422 MPV 9.1 Immature Gran % (Auto) 0.300 Neut % (Auto) 69.6 Lymph % (Auto) 21.6 [place] % (Auto) 7.0 Eos % (Auto) 0.9 Baso % (Auto) 0.6 Absolute Neuts (auto) 8.8 H Absolute Lymphs (auto) 2.72 Nucleated RBC % 0 Sodium 137 Potassium 3.5 Chloride 103 Carbon Dioxide 25.0 Anion Gap 9 BUN 16 Creatinine 0.76 Estim Creat Clear Calc 96.29 Est GFR (MDRD) Af Amer 118 Est GFR (MDRD) Non-Af 97 BUN/Creatinine Ratio 20.9 H Glucose 108 H Calcium 10.0 Total Bilirubin 0.20 AST 47 H ALT 66 H Alkaline Phosphatase 122 H Total Protein 8.1 Albumin 3.8 Globulin 4.3 H Albumin/Globulin Ratio 0.9 Serum , Qual NEGATIVE Urine Color Urine Clarity Urine pH Ur Specific [place] Urine Protein Urine Glucose (UA) Urine Ketones Urine Occult Blood Urine Nitrite Urine Bilirubin Urine Urobilinogen Ur Leukocyte Esterase Urine RBC Urine WBC Ur Squamous Epith Cells Urine Bacteria Urine Mucus Urine Opiates Screen Urine Methadone Screen Ur Barbiturates Screen Ur Phencyclidine Scrn Ur Amphetamines Screen U Methamphetamin-MDMA U Benzodiazepines Scrn Urine Cocaine Screen U Cannabinoids Screen Ur Drug Screen Comment 11/01/20 11/01/20 22:05 22:05 WBC RBC Hgb Hct MCV MCH MCHC RDW Std Deviation RDW Coeff of James Plt Count MPV Immature Gran % (Auto) Neut % (Auto) Lymph % (Auto) [place] % (Auto) Eos % (Auto) Baso % (Auto) Absolute Neuts (auto) Absolute Lymphs (auto) Nucleated RBC % Sodium Potassium Chloride Carbon Dioxide Anion Gap BUN Creatinine Estim Creat Clear Calc Est GFR (MDRD) Af Amer Est GFR (MDRD) Non-Af BUN/Creatinine Ratio Glucose Calcium Total Bilirubin AST ALT Alkaline Phosphatase Total Protein Albumin Globulin Albumin/Globulin Ratio Serum , Qual Urine Color Yellow Urine Clarity Cloudy Urine pH 7.0 Ur Specific [place] 1.015 Urine Protein 30 H Urine Glucose (UA) Normal Urine Ketones 5 H Urine Occult Blood 50 H Urine Nitrite Negative Urine Bilirubin Negative Urine Urobilinogen 1 H Ur Leukocyte Esterase 100 H Urine RBC 10-25 SEEN Urine WBC 25-50 SEEN Ur Squamous Epith Cells 5-10 SEEN Urine Bacteria 3+ Urine Mucus 0 SEEN Urine Opiates Screen POSITIVE H Urine Methadone Screen NEGATIVE Ur Barbiturates Screen NEGATIVE Ur Phencyclidine Scrn NEGATIVE Ur Amphetamines Screen POSITIVE H U Methamphetamin-MDMA POSITIVE H U Benzodiazepines Scrn NEGATIVE Urine Cocaine Screen NEGATIVE U Cannabinoids Screen POSITIVE H Ur Drug Screen Comment Radiology Impression Brain CT 11/01/20 20:23 IMPRESSION: Normal unenhanced CT scan of the brain. Electronically Signed: Daniele Vazuqez DO at 21:32 EDT Tel [phone], Service support , Assessment & Plan Assessment/Plan (1) Sepsis: QUALIFIERS: Sepsis type: sepsis due to unspecified organism Sepsis acute organ dysfunction status: unspecified Qualified Code(s): A41.9 - Sepsis, unspecified organism (2) Urinary tract infection: QUALIFIERS: Urinary tract infection type: site unspecified Hematuria presence: with hematuria Qualified Code(s): N39.0 - Urinary tract infection, site not specified; R31.9 - Hematuria, unspecified (3) Encephalopathy: PLAN: The patient is a 25 y/o F w/ PMHx: Polysubstance abuse (Admitting currently only to IV heroin 1/2-1 gm daily, IV), Depression and Anxiety, Tobacco use who presents to the [facility] ED on 11/01/20 secondary to altered consciousness with EMS called and patient noted to be moaning in position with increased respiratory rate prompting ED evaluation. 1. Acute Encephalopathy, Multifactorial, likely primarily #2; however, concern for also concurrent Acute Sepsis secondary to Acute Urinary Tract Infection: Will admit to [facility] upon ED evaluation remarkable, pending UCx, continue IVFs, monitor I/Os, continue IV Rocephin w/ transition as able pending sensitivities a nd speciation. Bld cx x 2 obtained in the ED. 2. Polysubstance Abuse, IVDA: Will obtain HIV, hepatitis panel. Will consult case management for substance abuse. Encouraged consideration of addiction medicine program. Monitor for withdrawal and initiate treatment if patient amenable and encephalopathy resolved. 3. Anxiety and depression: Not on regimen, would benefit from therapy especially likely associate with substance abuse. 4. Tobacco Abuse: Encouraged cessation, inpatient consultation per RT, NR if desired. 5. Elevated LFTs, suspect chronic: Admission AST/ALT 47/66, alk phos 122, hepatitis as well as HIV panel pending given #2. Repeat CMP in a.m. 6. DVT prophylaxis: Low risk, encourage ambulation once improved. Charges/Coding Visit Charges Inpatient E&M: 84504 Init Hosp L3
[2020-11-02] VITALS (8 sets, daily range): BP systolic 105–119; BP diastolic 58–82; PULSE 69–101; RESP 16–24; TEMP 36.1–37.1; O2SAT 96–100; BMI 46.4
[2020-11-02 00:52] LABS: Lactic Acid 1.6 mmol/L (0.4-1.9)
[2020-11-02] MEDS: Ondansetron 4 MG/2 ML Vial IV (01:13)
[2020-11-02] MEDS: 0.9% Saline Lock 10 ML Syringe IV (01:13)
[2020-11-02] MEDS: 0.9% Normal Saline 1,000 ML 150 ML IV (01:13)
--- NOTE | 2020-11-02 01:24 | NURSING ---
answers all questions person,place, time appropriately, irritable with care, moans, rolls back and forth in bed when care attempted, states she is just cold cover her up, medicated for nausea. bed exit on
[2020-11-02 02:55] LABS: HIV - WCH Non-Reactive (Nonreactive)
--- NOTE | 2020-11-02 04:32 | NURSING ---
refused iv restart
[2020-11-02 07:41] LABS: Absolute Lymphocyte Count 1.44 X10^3/uL (0.83-4.51); Absolute Neutrophil Count 9.3 X10^3/uL (2.0-7.7); Basophil# 0.02 X10^3/uL; Basophil% 0.2 % (0-1); Hematocrit 37.4 % (37-47); Hemoglobin 12.5 g/dL (12.0-15.0); Lymphocyte # 1.44 X10^3/ul (0.83-4.51); Lymphocyte % 12.8 % (19-41); Mean Corp Hgb Conc 33.4 g/dL (32-36); Mean Corpuscular Hgb 27.3 pg (27.0-32.0); Mean Corpuscular Volume 81.7 fL (81-99); Mean Platelet Vol. 9.1 fl (6.2-12.0); Monocyte# 0.36 X10^3/uL; Monocyte% 3.2 % (0-10); NRBC Flagged by Analyzer 0 % (0-5); Neutrophil # 9.33 X10^3/uL (2.7-7.7); Neutrophil % 83.3 % (47-70); Platelet Count 393 K/mm3 (150-450); RBC Distribution Width CV 11.9 % (11.6-14.6); RBC Distribution Width SD 35.4 fl (35.1-43.9); Red Blood Count 4.58 M/mm3 (4.2-5.4); White Blood Count 11.2 K/mm3 (4.4-11.0)
[2020-11-02 08:18] LABS: ALB/GLOB Ratio 0.8 RATIO (0.9-2.4); AST(SGOT) 38 U/L (15-37); Alanine Aminotransfer ALT/SGPT 52 U/L (13-56); Alkaline Phosphatase 105 U/L (45-117); Anion Gap 7 (5-15); BUN 11 mg/dL (7-18); BUN/Creat Ratio 18.9 RATIO (10-20); Calcium,Total 8.6 mg/dL (8.5-10.1); Chloride 108 mmol/L (98-107); Creatinine, Serum 0.58 mg/dL (0.55-1.02); EST Glomerular Filtration Rate 134 mL/min (>60); Est Glom Filt Rate - Afr Amer 162 mL/min (>60); Estimated Creatinine Clearance 117.27 ml/min; Globulin 3.8 g/dL (2.2-4.2); Glucose 110 mg/dL (74-106); Potassium 3.8 mmol/L (3.5-5.1); Protein, Total 6.8 g/dL (6.4-8.2); Sodium Level 139 mmol/L (136-145)
--- NOTE | 2020-11-02 09:58 | PCM.PN.HOSP ---
Subjective Subjective Restless today, states that she would like to undergo detox for her opiate use. COWS score of 3. Her encephalopathy has resolved, Objective Data Objective Data Vital Signs: Vital Signs Temp Pulse Resp BP Pulse Ox 98.3 F 75 16 116/79 98 11/02/20 07:54 11/02/20 07:54 11/02/20 07:54 11/02/20 07:54 11/02/20 07:54 Oxygen Delivery Method Room Air Weight: 253 lb 12.033 oz Body Mass Index (BMI) 46.4 Intake & Output: Intake and Output for Last 24 Hours 11/01/20 11/02/20 11/03/20 03:59 03:59 03:59 Intake Total 1050 / 1050 500 / 500 Balance 1050 / 1050 500 / 500 Lab / Micro Data Result Diagrams: 11/02/20 06:25 11/02/20 06:25 Labs: Laboratory Results - last 24 hr 11/01/20 11/01/20 11/01/20 21:00 21:00 21:00 WBC 12.6 H RBC 4.97 Hgb 13.8 Hct 40.6 MCV 81.7 MCH 27.8 MCHC 34.0 RDW Std Deviation 33.9 L RDW Coeff of James 11.7 Plt Count 422 MPV 9.1 Immature Gran % (Auto) 0.300 Neut % (Auto) 69.6 Lymph % (Auto) 21.6 [place] % (Auto) 7.0 Eos % (Auto) 0.9 Baso % (Auto) 0.6 Absolute Neuts (auto) 8.8 H Absolute Lymphs (auto) 2.72 Nucleated RBC % 0 Sodium 137 Potassium 3.5 Chloride 103 Carbon Dioxide 25.0 Anion Gap 9 BUN 16 Creatinine 0.76 Estim Creat Clear Calc 96.29 Est GFR (MDRD) Af Amer 118 Est GFR (MDRD) Non-Af 97 BUN/Creatinine Ratio 20.9 H Glucose 108 H Lactic Acid Calcium 10.0 Total Bilirubin 0.20 AST 47 H ALT 66 H Alkaline Phosphatase 122 H Total Protein 8.1 Albumin 3.8 Globulin 4.3 H Albumin/Globulin Ratio 0.9 Serum , Qual NEGATIVE Urine Color Urine Clarity Urine pH Ur Specific [place] Urine Protein Urine Glucose (UA) Urine Ketones Urine Occult Blood Urine Nitrite Urine Bilirubin Urine Urobilinogen Ur Leukocyte Esterase Urine RBC Urine WBC Ur Squamous Epith Cells Urine Bacteria Urine Mucus Urine Opiates Screen Urine Methadone Screen Ur Barbiturates Screen Ur Phencyclidine Scrn Ur Amphetamines Screen U Methamphetamin-MDMA U Benzodiazepines Scrn Urine Cocaine Screen U Cannabinoids Screen Ur Drug Screen Comment HIV 1&2 Antibody 11/01/20 11/01/20 11/01/20 21:00 22:05 22:05 WBC RBC Hgb Hct MCV MCH MCHC RDW Std Deviation RDW Coeff of James Plt Count MPV Immature Gran % (Auto) Neut % (Auto) Lymph % (Auto) [place] % (Auto) Eos % (Auto) Baso % (Auto) Absolute Neuts (auto) Absolute Lymphs (auto) Nucleated RBC % Sodium Potassium Chloride Carbon Dioxide Anion Gap BUN Creatinine Estim Creat Clear Calc Est GFR (MDRD) Af Amer Est GFR (MDRD) Non-Af BUN/Creatinine Ratio Glucose Lactic Acid Calcium Total Bilirubin AST ALT Alkaline Phosphatase Total Protein Albumin Globulin Albumin/Globulin Ratio Serum , Qual Urine Color Yellow Urine Clarity Cloudy Urine pH 7.0 Ur Specific [place] 1.015 Urine Protein 30 H Urine Glucose (UA) Normal Urine Ketones 5 H Urine Occult Blood 50 H Urine Nitrite Negative Urine Bilirubin Negative Urine Urobilinogen 1 H Ur Leukocyte Esterase 100 H Urine RBC 10-25 SEEN Urine WBC 25-50 SEEN Ur Squamous Epith Cells 5-10 SEEN Urine Bacteria 3+ Urine Mucus 0 SEEN Urine Opiates Screen POSITIVE H Urine Methadone Screen NEGATIVE Ur Barbiturates Screen NEGATIVE Ur Phencyclidine Scrn NEGATIVE Ur Amphetamines Screen POSITIVE H U Methamphetamin-MDMA POSITIVE H U Benzodiazepines Scrn NEGATIVE Urine Cocaine Screen NEGATIVE U Cannabinoids Screen POSITIVE H Ur Drug Screen Comment HIV 1&2 Antibody Non-Reactive 11/01/20 11/02/20 11/02/20 23:15 06:25 06:25 WBC 11.2 H RBC 4.58 Hgb 12.5 Hct 37.4 MCV 81.7 MCH 27.3 MCHC 33.4 RDW Std Deviation 35.4 RDW Coeff of James 11.9 Plt Count 393 MPV 9.1 Immature Gran % (Auto) 0.500 Neut % (Auto) 83.3 H Lymph % (Auto) 12.8 L [place] % (Auto) 3.2 Eos % (Auto) 0.0 Baso % (Auto) 0.2 Absolute Neuts (auto) 9.3 H Absolute Lymphs (auto) 1.44 Nucleated RBC % 0 Sodium 139 Potassium 3.8 Chloride 108 H Carbon Dioxide 24.0 Anion Gap 7 BUN 11 Creatinine 0.58 Estim Creat Clear Calc 117.27 Est GFR (MDRD) Af Amer 162 Est GFR (MDRD) Non-Af 134 BUN/Creatinine Ratio 18.9 Glucose 110 H Lactic Acid 1.6 Calcium 8.6 Total Bilirubin 0.40 AST 38 H ALT 52 Alkaline Phosphatase 105 Total Protein 6.8 Albumin 3.0 L Globulin 3.8 Albumin/Globulin Ratio 0.8 L Serum , Qual Urine Color Urine Clarity Urine pH Ur Specific [place] Urine Protein Urine Glucose (UA) Urine Ketones Urine Occult Blood Urine Nitrite Urine Bilirubin Urine Urobilinogen Ur Leukocyte Esterase Urine RBC Urine WBC Ur Squamous Epith Cells Urine Bacteria Urine Mucus Urine Opiates Screen Urine Methadone Screen Ur Barbiturates Screen Ur Phencyclidine Scrn Ur Amphetamines Screen U Methamphetamin-MDMA U Benzodiazepines Scrn Urine Cocaine Screen U Cannabinoids Screen Ur Drug Screen Comment HIV 1&2 Antibody Radiography Diagnostic Testing: Radiology Impression Brain CT 11/01/20 20:23 IMPRESSION: Normal unenhanced CT scan of the brain. Electronically Signed: Daniele Vazquez DO at 21:32 EDT Tel [phone], Service support , Physical Exam Narrative Physical Examination: General: Initially sleeping but awakens, following discussions does become more alert and answering questions appropriately, has been encephalopathic initially upon ED presentation, currently oriented x3, laying in the ED bed, reports not feeling well. Skin: Normal color, normal turgor, no icterus, no cyanosis except occasional track chanelle. HEENT: AT/NC, EOMI, PERRLA, dry MM, no carotid bruits or JVD noted. Lungs: Diminished breath sounds at bases, currently appearance of moderate effort but difficult assessment as intermittently moaning, no rales, ronchi or wheezing. Heart: Regular rate and rhythm; no gallop, rub audible. Abdomen: Soft, NTTP, ND, mildly hyperactive BS, no HSM. Extremities: No cyanosis, clubbing, or edema. Neurological: Initially sleeping but awakens, following discussions does become more alert and answering questions appropriately, has been encephalopathic initially upon ED presentation, currently oriented x 3, cognitive function improving, not baseline intact; pupils equally reactive to light and accommodation, cranial nerves II-XII grossly normal, moving all 4 extremities, no focal deficits, strength moderately to severely globally decreased. Psychiatric: Affect appears fatigued, intermittent agitation, no acute evidence of depressive or anxiety feelings. Const alert, oriented x3 and no apparent distress General Appearance: cooperative HEENT normocephalic and moist oral mucous membranes Eyes PERRL, EOMs intact bilaterally and conjunctivae normal Neck supple and no JVD Resp normal respiratory effort, no retractions, no use of accessory muscles and clear to auscultation bilaterally Auscultation: Negative for crackles, rales, rhonchi or wheezes Cardio regular rate, regular rhythm, S1 normal heart sound, S2 normal heart sound and no murmurs GI soft to palpation, non-tender and non-distended; Negative for hepatosplenomegaly Extremity no clubbing, cyanosis or edema Skin no rashes or lesions noted Neuro no focal motor deficits and no sensory deficits noted Psych Activity / Motor Behavior: restless Mood & Affect: anxious Assessment & Plan Assessment/Plan (1) Sepsis: QUALIFIERS: Sepsis type: sepsis due to unspecified organism Sepsis acute organ dysfunction status: unspecified Qualified Code(s): A41.9 - Sepsis, unspecified organism (2) Urinary tract infection: QUALIFIERS: Urinary tract infection type: site unspecified Hematuria presence: with hematuria Qualified Code(s): N39.0 - Urinary tract infection, site not specified; R31.9 - Hematuria, unspecified (3) Encephalopathy: (4) Acute opioid withdrawal: PLAN: 1. Acute Encephalopathy, Multifactorial, likely primarily #2; however, concern for also concurrent Acute Sepsis secondary to Acute Urinary Tract Infection: Will admit to [facility] upon ED evaluation remarkable, pending UCx, continue IVFs, monitor I/Os, continue IV Rocephin w/ transition as able pending sensitivities and speciation. Bld cx x 2 obtained in the ED. -11/02/2020: Encephalopathy has resolved, urine culture is pending we will continue with antibiotics 2. Polysubstance Abuse, IVDA: Will obtain HIV, hepatitis panel. Will consult case management for substance abuse. Encouraged consideration of addiction medicine program. Monitor for withdrawal and initiate treatment if patient amenable and encephalopathy resolved. -11/02/2020: Currently undergoing opiate withdrawal protocol if she would like to detox while here 3. Anxiety and depression: Not on regimen, would benefit from therapy especially likely associate with substance abuse. 4. Tobacco Abuse: Encouraged cessation, inpatient consultation per RT, NR if desired. 5. Elevated LFTs, suspect chronic: Admission AST/ALT 47/66, alk phos 122, hepatitis as well as HIV panel pending given #2. Repeat CMP in a.m. DVT: Low risk, encourage ambulation once improved. Charges/Coding Visit Charges Inpatient E&M: 25197 Subs Hosp L2
--- NOTE | 2020-11-02 14:01 | CASEMGMT ---
KORI Note: Referral Reason: Drug Use Referral Source: Medical Lab Director KORI met with patient in the room. Patient was under the covers and did not come show her face. She requested that social sciences lecturer come back tomorrow and this advertising writer said that is not possible (as there will be no social sciences lecturer available). Patient was asked about AOD treatment. Patient said that she will take information about the [facility] program. Patient resides in [place]. KORI provided her with packet on [facility] services. KORI also educated her on the [facility] program but patient did not voice interest in [facility] program. Plan: Provided with AOD treatment information. Judith ALLEN
[2020-11-02] MEDS: Methocarbamol 750 MG Tablet 1500 MG PO (14:26)
[2020-11-02] MEDS: Dicyclomine 10 MG Capsule 20 MG PO (14:27)
[2020-11-02] MEDS: cloNIDine HCl 0.1 MG Tablet PO (14:27)
[2020-11-02] MEDS: hydrOXYzine PAM 25 MG Capsule 50 MG PO (14:27)
[2020-11-02] MEDS: Cefdinir 300 MG Capsule PO (22:43)
[2020-11-02] MEDS: traZODone 100 MG Tablet PO (22:45)
[2020-11-03 03:30] VITALS: BP 101/67; PULSE 66; RESP 18; TEMP 36.8; O2SAT 95
[2020-11-03] MEDS: Methocarbamol 750 MG Tablet 1500 MG PO ×2 (03:38→14:44)
[2020-11-03] MEDS: Acetaminophen 325 MG Tablet 650 MG PO (03:38)
[2020-11-03] MEDS: hydrOXYzine PAM 25 MG Capsule 50 MG PO (03:38)
[2020-11-03 06:13] LABS: Absolute Lymphocyte Count 2.62 X10^3/uL (0.83-4.51); Absolute Neutrophil Count 5.4 X10^3/uL (2.0-7.7); Basophil# 0.06 X10^3/uL; Basophil% 0.7 % (0-1); Eosinophil# 0.03 X10^3/uL; Eosinophils% 0.3 % (0-5); Hematocrit 36.6 % (37-47); Hemoglobin 12.2 g/dL (12.0-15.0); Lymphocyte # 2.62 X10^3/ul (0.83-4.51); Lymphocyte % 30.1 % (19-41); Mean Corp Hgb Conc 33.3 g/dL (32-36); Mean Corpuscular Hgb 27.8 pg (27.0-32.0); Mean Corpuscular Volume 83.4 fL (81-99); Monocyte# 0.53 X10^3/uL; Monocyte% 6.1 % (0-10); NRBC Flagged by Analyzer 0 % (0-5); Neutrophil # 5.43 X10^3/uL (2.7-7.7); Neutrophil % 62.3 % (47-70); Platelet Count 347 K/mm3 (150-450); RBC Distribution Width CV 11.9 % (11.6-14.6); RBC Distribution Width SD 36.1 fl (35.1-43.9); Red Blood Count 4.39 M/mm3 (4.2-5.4); White Blood Count 8.7 K/mm3 (4.4-11.0)
[2020-11-03 06:36] LABS: Anion Gap 7 (5-15); BUN 12 mg/dL (7-18); BUN/Creat Ratio 20.4 RATIO (10-20); Calcium,Total 8.6 mg/dL (8.5-10.1); Chloride 110 mmol/L (98-107); Creatinine, Serum 0.59 mg/dL (0.55-1.02); EST Glomerular Filtration Rate 132 mL/min (>60); Est Glom Filt Rate - Afr Amer 160 mL/min (>60); Estimated Creatinine Clearance 115.28 ml/min; Glucose 88 mg/dL (74-106); Potassium 3.5 mmol/L (3.5-5.1); Sodium Level 139 mmol/L (136-145)
[2020-11-03 07:15] VITALS: O2SAT 95
[2020-11-03 10:37] VITALS: BP 91/50; PULSE 88; RESP 16; TEMP 37; O2SAT 96
--- NOTE | 2020-11-03 10:43 | PN.HOSP_ITS ---
Subjective Subjective See paper chart for billing and note Objective Data Objective Data Vital Signs: Vital Signs Temp Pulse Resp BP Pulse Ox 98.6 F 88 16 91/50 L 96 11/03/20 10:37 11/03/20 10:37 11/03/20 10:37 11/03/20 10:37 11/03/20 10:37 Oxygen Delivery Method Room Air Weight: 115 lb 4.828 oz Body Mass Index (BMI) 46.4 Intake & Output: Intake and Output for Last 24 Hours 11/02/20 11/03/20 11/04/20 03:59 03:59 03:59 Intake Total 1050 / 1050 500 / 500 240 / 240 Balance 1050 / 1050 500 / 500 240 / 240 Lab / Micro Data Result Diagrams: 11/03/20 05:40 11/03/20 05:40 Labs: Laboratory Results - last 24 hr 11/03/20 11/03/20 05:40 05:40 WBC 8.7 RBC 4.39 Hgb 12.2 Hct 36.6 L MCV 83.4 MCH 27.8 MCHC 33.3 RDW Std Deviation 36.1 RDW Coeff of James 11.9 Plt Count 347 MPV 9.0 Immature Gran % (Auto) 0.500 Neut % (Auto) 62.3 Lymph % (Auto) 30.1 [place] % (Auto) 6.1 Eos % (Auto) 0.3 Baso % (Auto) 0.7 Absolute Neuts (auto) 5.4 Absolute Lymphs (auto) 2.62 Nucleated RBC % 0 Sodium 139 Potassium 3.5 Chloride 110 H Carbon Dioxide 22.0 Anion Gap 7 BUN 12 Creatinine 0.59 Estim Creat Clear Calc 115.28 Est GFR (MDRD) Af Amer 160 Est GFR (MDRD) Non-Af 132 BUN/Creatinine Ratio 20.4 H Glucose 88 Calcium 8.6 Micro: Microbiology 11/01/20 22:05 Urine, Catheterized Urine Culture - Preliminary Yeast, not Ligia albicans
[2020-11-03] MEDS: Cefdinir 300 MG Capsule PO (10:49)
[2020-11-03] MEDS: Buprenorphine HCl 2 MG TAB.SUBL 4 MG SL (10:49)
[2020-11-03 14:35] VITALS: BP 106/68; PULSE 102; RESP 16; TEMP 36.8; O2SAT 96
[2020-11-03] MEDS: Gabapentin 300 MG Capsule PO (14:44)
--- NOTE | 2020-11-03 15:27 | NURSING ---
pt leaving AMA
[2020-11-05 12:07] LABS: HEPATITIS B SURFACE AG Negative (Negative); Hepatitis B Core AB IgM Negative (Negative); Hepatitis B Core Ab Total Positive (Negative); Hepatitis Be Ab Positive (Negative); Hepatitis Be Ag Negative (Negative); Hepatitis C Ab >11.0 s/co ratio (0.0-0.9)
[2020-11-05 12:43] LABS: Hep B Surface Antibodies Reactive (.)
== END 2020-11-03 15:18 | disposition left against medical advice (07) ==
LOC: ED 23:57 → MS3 11-02 07:49
PROVIDERS: Admitting Provider Family Medicine; Emergency Provider Emergency Medicine; PCP Family Medicine; Visit Provider Family Medicine
DX: A41.9 Sepsis, unspecified organism (principal); G93.41 Metabolic encephalopathy; F11.23 Opioid dependence with withdrawal; R06.02 Shortness of breath; F15.10 Other stimulant abuse, uncomplicated; F17.210 Nicotine dependence, cigarettes, uncomplicated; N39.0 Urinary tract infection, site not specified; F41.9 Anxiety disorder, unspecified; F32.9 Major depressive disorder, single episode, unspecified; R79.89 Other specified abnormal findings of blood chemistry
CPT/HCPCS: 36415; 51702; 70450; 80048; 80053; 80307; 81001; 83605; 84703; 85025; 86703; 86704; 86705; 86706; 86707; 86803; 87040; 87086; 87088; 87340; 87350; 96361; 96365; 96375; 99218; 99285; J7030; A4216; G0378; J2405

== ENCOUNTER 2024-09-16 21:58 | Inpatient (IN) | payer OTHER, MEDICAID, SELFPAY ==
[2024-09-16 22:05] VITALS: BMI 25.3
[2024-09-16 22:16] VITALS: BP 139/94; PULSE 89; RESP 17; TEMP 37.3; O2SAT 98
[2024-09-16] MEDS: Lactated Ringers 1,000 ML 50 ML IV (22:30)
[2024-09-16 22:48] LABS: Absolute Lymphocyte Count 2.32 X10^3/uL (0.83-4.51); Absolute Neutrophil Count 6.3 X10^3/uL (2.0-7.7); Basophil# 0.06 X10^3/uL; Basophil% 0.6 % (0-1); Eosinophil# 0.07 X10^3/uL; Eosinophils% 0.7 % (0-5); Hematocrit 32.1 % (37-47); Hemoglobin 10.9 g/dL (12.0-15.0); Lymphocyte # 2.32 X10^3/ul (0.83-4.51); Lymphocyte % 24.3 % (19-41); Mean Corpuscular Hgb 28.3 pg (27.0-32.0); Mean Corpuscular Volume 83.4 fL (81-99); Monocyte% 7.3 % (0-10); NRBC Flagged by Analyzer 0 % (0-5); Neutrophil % 66.2 % (47-70); Platelet Count 259 K/mm3 (150-450); RBC Distribution Width CV 13.2 % (11.6-14.6); RBC Distribution Width SD 39.4 fl (35.1-43.9); Red Blood Count 3.85 M/mm3 (4.2-5.4); White Blood Count 9.5 K/mm3 (4.4-11.0)
[2024-09-16] MEDS: Oxytocin 15 Units/NS 250ml 15 UNITS/250 ML IV.SOLN 2 UNITS IV (23:07)
[2024-09-16 23:10] VITALS: BP 134/84; PULSE 74; TEMP 37.1
[2024-09-16 23:15] LABS: Syphilis Antibodies Nonreactive (Nonreactive)
[2024-09-16 23:49] LABS: Amphetamine Urine NEGATIVE (<1000 ng/mL); Barbiturate Urine NEGATIVE (< 200 ng/mL); Benzodiazepine Urine NEGATIVE (< 200 ng/mL); Cocaine Urine NEGATIVE (< 300 ng/mL); Methadone Urine NEGATIVE (< 300 ng/mL); Opiates Urine NEGATIVE (< 300 ng/mL); PCP Urine NEGATIVE (< 25 ng/mL); THC Urine NEGATIVE (< 50 ng/mL)
[2024-09-17] VITALS (41 sets, daily range): BP systolic 99–169; BP diastolic 62–99; PULSE 55–102; RESP 16–20; TEMP 36.3–37; O2SAT 94–100
[2024-09-17] MEDS: fentaNYL-bupivacaine (epidural) 100 ML BAG EPIDURAL ×2 (03:19→08:33)
[2024-09-17] MEDS: Lactated Ringers 1,000 ML 200 ML IV ×2 (03:20→08:34)
--- NOTE | 2024-09-17 09:06 | PCM.HP.OB ---
HPI - General General Date of Admission: 09/16/24 Date of Service: 09/16/24 Chief Complaint: Induction of labor HPI Narrative BERNARDO LAN, is a 29 F who presents induction of labor at 41 weeks. Hep C positive with viral load of 1,500,000. GBS negative Maternal Data Information Final BRAVO: 09/09/24 Gestational age: 41 PFSH PFSH Medical History Hepatitis Migraines Tobacco use Heroin use IV drug abuse Anxiety and depression Substance abuse Home Medications ?Medication ?Instructions ?Recorded ?Last Taken ?Type aspirin 81 mg tablet,delayed 81 mg PO DAILY 09/16/24 09/16/24 History release vit no.95-ferrous 1 tab PO DAILY 09/16/24 09/16/24 History fumarate 28 mg-folic acid 800 mcg tablet () Allergy/AdvReac Type Severity Reaction Status Date / Time No Known Allergies Allergy Verified 09/16/24 22:20 Family History Mother Alcoholism Cancer Diabetes Heart disease Father Alcoholism Cancer Diabetes Heart disease Social History household members: none Smoking Status: Current every day smoker tobacco type: cigarettes alcohol intake: never substance use type: marijuana, heroin, amphetamines, IV drugs and methamphetamine caffeine: Yes what type of physical activity do you participate in: none seatbelt use: always do you feel safe at home: Yes additional social history: boyfriend- satinder single- [employer] History 2 Elective abortions Hx Para 1 Spontaneous abortions Hx # Term Pregnancies Ectopic pregnancies Hx # Pregnancies Multiple births # of living children Past Pregnancies Del. Date Name GA/Weeks Outcome Route Bth Weight Gen Labor Lgth Anesthesia Del Locatn Provider FOB Unknown 2014 [place] 37 live - full term Female none [place] NST FHR Rate Baby A Baseline: 145 Variability:: Moderate Accelerations:: 15 x 15 Decelerations:: None FHR Category:: Category I ROS Constitutional Constitutional: Denies fatigue, fever(s) or malaise Eyes Eyes: Denies change in vision ENT HEENT: Denies dizziness or headache(s) Cardiovascular Cardiovascular: Denies chest pain, dyspnea or lightheadedness Respiratory/Chest Respiratory/Chest: Denies cough or dyspnea Gastrointestinal Gastrointestinal: Denies change in bowel habits Genitourinary Genitourinary: Denies burning urination or genital lesions Integumentary Integumentary: Denies rash Neurologic Neurologic: Denies confusion, dizziness, headache(s), numbness or weakness Vital Signs Vital Signs Vital Signs: 09/16/24 22:16 09/16/24 22:16 09/16/24 22:16 Temperature Temperature Source Pulse Rate 89 Respiratory Rate Blood Pressure 139/94 H BP Systolic 139 BP Diastolic 94 Pulse Ox 98 09/16/24 22:16 09/16/24 22:16 09/16/24 22:16 Temperature 99.1 F Temperature Source Temporal Pulse Rate Respiratory Rate 17 Blood Pressure BP Systolic BP Diastolic Pulse Ox 09/16/24 22:16 09/16/24 22:16 09/16/24 23:10 Temperature Temperature Source Temporal Pulse Rate Respiratory Rate 17 Blood Pressure 134/84 H BP Systolic 134 BP Diastolic 84 Pulse Ox 09/16/24 23:10 09/16/24 23:10 09/17/24 00:24 Temperature 98.8 F Temperature Source Pulse Rate 74 Respiratory Rate Blood Pressure 131/78 H BP Systolic 131 BP Diastolic 78 Pulse Ox 09/17/24 00:24 09/17/24 00:24 09/17/24 00:24 Temperature 97.5 F L Temperature Source Pulse Rate 66 Respiratory Rate Blood Pressure BP Systolic BP Diastolic Pulse Ox 97 09/17/24 00:24 09/17/24 00:24 09/17/24 01:12 Temperature Temperature Source Temporal Pulse Rate Respiratory Rate 17 Blood Pressure 141/84 H BP Systolic 141 BP Diastolic 84 Pulse Ox 09/17/24 01:12 09/17/24 01:12 09/17/24 01:12 Temperature 97.3 F L Temperature Source Temporal Pulse Rate 55 L Respiratory Rate Blood Pressure BP Systolic BP Diastolic Pulse Ox 09/17/24 01:12 09/17/24 03:02 09/17/24 03:02 Temperature Temperature Source Pulse Rate 73 Respiratory Rate 20 H Blood Pressure BP Systolic BP Diastolic Pulse Ox 99 09/17/24 03:04 09/17/24 03:04 09/17/24 03:04 Temperature Temperature Source Temporal Pulse Rate 75 Respiratory Rate Blood Pressure 150/99 H BP Systolic 150 BP Diastolic 99 Pulse Ox 09/17/24 03:04 09/17/24 03:07 09/17/24 03:07 Temperature Temperature Source Pulse Rate 89 Respiratory Rate 17 Blood Pressure BP Systolic BP Diastolic Pulse Ox 99 09/17/24 03:08 09/17/24 03:08 09/17/24 03:08 Temperature Temperature Source Pulse Rate 84 Respiratory Rate 18 Blood Pressure 146/95 H BP Systolic 146 BP Diastolic 95 Pulse Ox 09/17/24 03:12 09/17/24 03:12 09/17/24 03:17 Temperature Temperature Source Pulse Rate 78 Respiratory Rate Blood Pressure 108/80 BP Systolic 108 BP Diastolic 80 Pulse Ox 98 09/17/24 03:17 09/17/24 03:17 09/17/24 03:17 Temperature Temperature Source Pulse Rate 92 Respiratory Rate 20 H Blood Pressure BP Systolic BP Diastolic Pulse Ox 98 09/17/24 03:22 09/17/24 03:22 09/17/24 03:22 Temperature Temperature Source Pulse Rate 70 73 Respiratory Rate Blood Pressure 100/67 BP Systolic 100 BP Diastolic 67 Pulse Ox 09/17/24 03:22 09/17/24 03:22 09/17/24 03:27 Temperature Temperature Source Pulse Rate Respiratory Rate 16 Blood Pressure 99/68 BP Systolic 99 BP Diastolic 68 Pulse Ox 98 09/17/24 03:27 09/17/24 03:27 09/17/24 03:27 Temperature Temperature Source Pulse Rate 88 Respiratory Rate 16 Blood Pressure BP Systolic BP Diastolic Pulse Ox 98 09/17/24 03:32 09/17/24 03:32 09/17/24 03:32 Temperature Temperature Source Pulse Rate 87 Respiratory Rate Blood Pressure 118/72 BP Systolic 118 BP Diastolic 72 Pulse Ox 98 09/17/24 03:37 09/17/24 03:37 09/17/24 03:38 Temperature Temperature Source Pulse Rate 74 Respiratory Rate Blood Pressure 128/81 H BP Systolic 128 BP Diastolic 81 Pulse Ox 98 09/17/24 03:38 09/17/24 03:42 09/17/24 03:42 Temperature Temperature Source Pulse Rate 77 84 Respiratory Rate Blood Pressure 125/80 H BP Systolic 125 BP Diastolic 80 Pulse Ox 09/17/24 03:42 09/17/24 03:47 09/17/24 03:47 Temperature Temperature Source Pulse Rate 86 Respiratory Rate Blood Pressure 125/84 H BP Systolic 125 BP Diastolic 84 Pulse Ox 99 05/18/25 03:47 09/17/24 04:22 09/17/24 04:22 Temperature Temperature Source Pulse Rate 63 Respiratory Rate Blood Pressure 134/76 H BP Systolic 134 BP Diastolic 76 Pulse Ox 98 09/17/24 04:25 09/17/24 05:33 09/17/24 05:33 Temperature 98.2 F Temperature Source Pulse Rate 82 Respiratory Rate Blood Pressure 120/65 BP Systolic 120 BP Diastolic 65 Pulse Ox 09/17/24 05:33 09/17/24 05:33 09/17/24 05:33 Temperature 97.3 F L Temperature Source Pulse Rate 102 H Respiratory Rate Blood Pressure BP Systolic BP Diastolic Pulse Ox 97 09/17/24 06:58 09/17/24 06:59 09/17/24 06:59 Temperature 98.4 F Temperature Source Pulse Rate 56 L Respiratory Rate Blood Pressure 169/66 H BP Systolic 169 BP Diastolic 66 Pulse Ox 09/17/24 06:59 09/17/24 06:59 09/17/24 07:00 Temperature Temperature Source Pulse Rate 60 Respiratory Rate Blood Pressure 102/62 BP Systolic 102 BP Diastolic 62 Pulse Ox 94 09/17/24 07:00 09/17/24 07:19 09/17/24 08:08 Temperature 98.1 F Temperature Source Pulse Rate 68 Respiratory Rate Blood Pressure 111/71 BP Systolic 111 BP Diastolic 71 Pulse Ox 09/17/24 08:08 09/17/24 08:08 09/17/24 08:08 Temperature 97.9 F Temperature Source Temporal Pulse Rate 62 Respiratory Rate Blood Pressure BP Systolic BP Diastolic Pulse Ox 09/17/24 08:08 09/17/24 08:08 09/17/24 09:01 Temperature 97.9 F Temperature Source Pulse Rate Respiratory Rate 18 Blood Pressure 116/89 H BP Systolic 116 BP Diastolic 89 Pulse Ox 09/17/24 09:01 09/17/24 09:01 09/17/24 09:01 Temperature 98.2 F Temperature Source Temporal Pulse Rate 75 Respiratory Rate Blood Pressure BP Systolic BP Diastolic Pulse Ox 09/17/24 09:01 09/17/24 09:01 Temperature 98.3 F Temperature Source Pulse Rate Respiratory Rate 18 Blood Pressure BP Systolic BP Diastolic Pulse Ox Weight Weight: 62.868 kg Body Mass Index (BMI) 25.3 Physical Exam Const alert and no apparent distress General Appearance: cooperative HEENT normocephalic Resp normal respiratory effort Cardio regular rate GI soft to palpation GI Narrative: gravid, nontender, appropriate for gestational age Extremity no calf tenderness General Extremity: edema Skin no wounds Rashes: No rashes noted Psych activity/motor behavior normal Labs Labs Labs: Blood Type A POSITIVE Antibody Screen NEGATIVE Hct 32.1 % (37-47) L Hgb 10.9 g/dL (12.0-15.0) L Syphilis Total Ab Nonreactive (Nonreactive) Hep Bs Antigen Negative (Negative) Hepatitis C Antibody >11.0 s/co ratio (0.0-0.9) H HIV 1&2 Antibody Non-Reactive (Nonreactive) Rhogam given: No Assessment & Plan (1) 41 weeks gestation of : (2) Elective induction of labor planned: (3) Hepatitis C: QUALIFIERS: Viral hepatitis chronicity: chronic Hepatic coma status: without hepatic coma Qualified Code(s): B18.2 - Chronic viral hepatitis C PLAN: Treatment planned after delivery PLAN: Plan Pitocin induction AROM when able. Epidural prn
--- NOTE | 2024-09-17 09:29 | PCM.PN.OB ---
Subjective Subjective AROM for clear fluid. 7 cm CAT I Objective Data Objective Data Vital Signs: Vital Signs Temp Pulse Resp BP Pulse Ox 98.3 F 75 18 116/89 H 94 09/17/24 09:01 09/17/24 09:01 09/17/24 09:01 09/17/24 09:01 09/17/24 06:59 Weight: 62.868 kg Body Mass Index (BMI) 25.3 Intake & Output: Intake and Output for Last 24 Hours 09/15/24 09/16/24 09/17/24 23:59 23:59 23:59 Intake Total 2018.63 / Output Total 500 / 500 Balance 1519.63 / 1519.63 Lab / Micro Data 09/16/24 22:25 Labs: Laboratory Results - last 24 hr 09/16/24 21:55: Urine Opiates Screen NEGATIVE, Urine Methadone Screen NEGATIVE, Ur Barbiturates Screen NEGATIVE, Ur Phencyclidine Scrn NEGATIVE, Ur Amphetamines Screen NEGATIVE, MDMA (Ecstasy) Screen TNP, U Benzodiazepines Scrn NEGATIVE, Urine Cocaine Screen NEGATIVE, U Cannabinoids Screen NEGATIVE, Ur Drug Screen Comment 09/16/24 22:25: WBC 9.5, RBC 3.85 L, Hgb 10.9 L, Hct 32.1 L, MCV 83.4, MCH 28.3, MCHC 34.0, RDW Std Deviation 39.4, RDW Coeff of James 13.2, Plt Count 259, MPV 10.0, Immature Gran % (Auto) 0.900, Neut % (Auto) 66.2, Lymph % (Auto) 24.3, [place] % (Auto) 7.3, Eos % (Auto) 0.7, Baso % (Auto) 0.6, Absolute Neuts (auto) 6.3, Absolute Lymphs (auto) 2.32, Nucleated RBC % 0, Syphilis Total Ab Nonreactive, Blood Type A POSITIVE, Antibody Screen NEGATIVE Assessment & Plan (1) Hepatitis C: QUALIFIERS: Viral hepatitis chronicity: chronic Hepatic coma status: without hepatic coma Qualified Code(s): B18.2 - Chronic viral hepatitis C (2) Elective induction of labor planned: (3) 41 weeks gestation of : PLAN: Plan Continue Pitocin per protocol
[2024-09-17] MEDS: LACTATED RINGERS 500 ML 999 ML IV (10:23)
--- NOTE | 2024-09-17 11:06 | EX.PCM.OBVAG ---
Assessment & Plan (1) Hepatitis C: QUALIFIERS: Viral hepatitis chronicity: chronic Hepatic coma status: without hepatic coma Qualified Code(s): B18.2 - Chronic viral hepatitis C (2) 41 weeks gestation of : (3) (spontaneous vaginal delivery): Maternal Data Information Final BRAVO: 09/09/24 Gestational age: 41+1 Vaginal Delivery Maternal Presentation Maternal Presentation: Medically Indicated Induction Maternal Presentation: 41 weeks Type of Induction: Pitocin and Amniotomy Vaginal Delivery Information Procedure Performed: Spontaneous Vaginal Delivery Surgeon/Practitioner: Marilee Collins Date of Procedure: 09/17/24 Pre-Procedure Diagnosis: Term Post-Procedure Diagnosis: Type of anesthesia: Epidural Estimated Blood Loss: 50 cc Time of Delivery: 10:53 Findings Description of procedure: induction of labor at 41 weeks. Pitocin started. AROM at 7 cm for clear fluid. Progressed to complete and push for a short time to deliver over an intact perineum. The vertex delivered OA followed quickly by the shoulders. The cord was very short and had to be clamped and cut at the perineum. The baby cried spontaneously. The placenta delivered with gentle traction. There were no lacerations. All sponge and needle counts were correct. Presentation: Vertex and MORENA Amniotic Membrane Rupture Type: Artificial Amniotic Fluid Description: Clear Placental Delivery Description: Spontaneous Placenta Disposition: [facility] Specimen collected: No Cord Vessel Description: 3 Vessels Cord Entanglement: None and Other (very short cord) Infant A Gender: Female (1 minute): 8 (5 minute): 9 Delayed Cord Clamping: No Creative Developer accredited farm manager: No Post Vaginal Deli Medications given after delivery: IV Pitocin Episiotomy Description: None Laceration: None Complication Complications: No
[2024-09-17] MEDS: Oxytocin 15 Units/NS 250ml 15 UNITS/250 ML IV.SOLN 83 UNITS IV (11:30)
[2024-09-17] MEDS: Acetaminophen 500 MG Tablet 1000 MG PO (13:50)
[2024-09-17] MEDS: 0.9% Saline Lock 10 ML Syringe IV (14:37)
--- NOTE | 2024-09-17 17:35 | CASEMGMT ---
Social Work Assessment Labor and Delivery Unit Patient Address: [address] [place] [address] [address], [place] [address] Phone number: [phone] Date of Referral: 09/16 and 09/17/24 Time of Referral: 22:23 and 14:05 Referred By: Marilee Collins Date of Intervention: 09/17/24 Time of Intervention: 17:34 Reason for Referral: Substance abuse; anxiety, bipolar, history of IV drug use History obtained from: Medical records, mother of baby (MOB) and father of baby (FOB).? Household composition: MOB, FOB (Guillermo Ernst, age 38), MOB?s daughter Kiara, age 9 and MOB and FOB?s daughter Tanner Ernst, born on 09/17/24. Patient's parent/guardian status: MOB and FOB have been together for almost 1.5 years and are not . MOB described a positive relationship with the FOB and denied any DV. Medical History:? : 2, Para, now 2. MOB received care through [facility] beginning at 9 weeks and 5 days. Visits were observed to be routine. Apgars: 8 and 9. Weight: 7lbs, 6oz. Bung Remover: Dr. Redman. Educational Status: MOB and FOB denied any problems with reading and/or writing. MOB and FOB both earned their High School diploma. Financial Status: MOB and FOB reported their income is sufficient to meet the needs of their family at this time. 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 MOB is taking ?a couple of weeks? of unpaid maternity leave. Infant Supplies: MOB and FOB reported they have all the supplies they need for baby at this time including but not limited to: car seat, bassinet, crib, diapers, breast pump, and clothing. Childcare/Caregiver(s): MOB reported that ?s grandparents on both sides will care for during the times the MOB and FOB are working. When MOB and FOB are not working, they will each provide care for . Transportation:? MOB and FOB reported they are both licensed drivers and have a reliable vehicle to take baby to and from all medical appointments. No transportation issues identified. Programs/Agencies Involved: MOB denied any current agency involvement at this time.? MOB denied having Medicaid and reported she has insurance through her job. Children Services/Legal Issues:? Denied. Behavioral Health Issues:?? Mental Health History: MOB has a history of anxiety, bipolar, depression, PTSD and PPD. MOB is not on any medication at this time, reported symptoms are effectively managed at this time and denied any current symptoms including depression. MOB reported she?s doing ?really good?. FOB denied any history of mental health. ?Substance Use History:?? MOB has a history of drug abuse including marijuana, heroin, amphetamines, methamphetamines, and ecstasy. MOB was in rehab in 2018 and stated she has not used in over 5 years. Review of medical records show a last positive test for drugs being 11/01/20.? FOB denied any history or current abuse of any drugs or alcohol. ??Family History: MOB and FOB denied any family history of mental health issues or drug and/or alcohol abuse issues on either side of their families. ??Drug Screens: MOB: Negative. Baby: None obtained at the time of this admission as of 09/17/24. Family/Social Stressors: ?MOB and FOB denied any current family or social stressors. Support Systems: Ample.? SHERRY identified her biggest support as the FOB and both sets of ?s grandparents. Depression/Shaken Baby/Safe Sleeping: packing line worker provided verbal and written education on PPD, Safe Sleeping and Shaken Baby.? packing line worker reviewed risk factors for PPD. MOB and FOB verbalized an understanding.??? ASSESSMENT:? MOB and FOB provided consent to the social work visit.? When social service liaison arrived, the MOB was in the hospital bed holding and the FOB was standing close-by. Both MOB and FOB were verbally engaged and cooperative.? Farm Contractor Buyer observed positive interaction with the MOB and the FOB as well as with the MOB and FOB towards the .? MOB and FOB took turns holding and both were observed to be very gentle and attentive to ?s needs. ?MOB reported feeling safe, denied any previous or current domestic violence, drug or alcohol abuse or unmanaged mental health issues with either herself of the FOB. Safe Plan of Care for related to substance use: N/A; not needed as there are no current indicators of drug or alcohol abuse with the MOB or FOB. ? PLAN:? Baby to be discharged home when ready.? packing line worker also provided written information on depression, depression resources and Help Me Grow as additional resources offered by social service liaison which MOB and FOB accepted. No other services requested or indicated. Marilee Posadas, COOKER PIE FILLING, COLORIST FORMULATOR
[2024-09-17] MEDS: Ibuprofen 600 MG Tablet PO (19:17)
[2024-09-18 00:30] VITALS: BP 130/87; PULSE 56; RESP 16; TEMP 36.8; O2SAT 98
[2024-09-18] MEDS: Acetaminophen 500 MG Tablet 1000 MG PO ×2 (00:31→09:02)
[2024-09-18 00:32] VITALS: BP 130/87; PULSE 54; TEMP 36.8
[2024-09-18] MEDS: Ibuprofen 600 MG Tablet PO ×2 (03:57→11:27)
[2024-09-18 03:59] VITALS: BP 118/75; PULSE 62; PULSE 63; RESP 16; TEMP 36.4; O2SAT 98
--- NOTE | 2024-09-18 06:47 | PCM.PN.OB ---
Subjective Subjective Doing well. Ambulating and voiding without difficulty. Mild lochia. Breast feeding. Objective Data Objective Data Vital Signs: Vital Signs Temp Pulse Resp BP Pulse Ox O2 Del Method 97.5 F L 63 16 118/75 98 Room Air 09/18/24 03:59 09/18/24 03:59 09/18/24 03:59 09/18/24 03:59 09/18/24 03:59 09/18/24 03:59 Oxygen Delivery Method Room Air Weight: 62.868 kg Body Mass Index (BMI) 25.3 Intake & Output: Intake and Output for Last 24 Hours 09/16/24 09/17/24 09/18/24 23:59 23:59 23:59 Intake Total 3362.33 / 3362.33 Output Total 1550 / 1550 Balance 1812.33 / 1812.33 Lab / Micro Data 09/16/24 22:25 ROS Constitutional Constitutional: Denies headache(s) Cardiovascular Cardiovascular: Denies chest pain or dyspnea Gastrointestinal Gastrointestinal: Denies nausea or vomiting Genitourinary Genitourinary: Denies dysuria Physical Exam Const alert, oriented x3 and no apparent distress General Appearance: cooperative and comfortable Eyes PERRL and EOMs intact bilaterally Resp normal respiratory effort GI soft to palpation and non-tender Uterus Palpation: uterus fundus firm ( below umbilicus) Extremity normal to inspection and full ROM Neuro oriented x3 and CN's II-XII intact bilaterally Psych mental status grossly normal Assessment & Plan (1) (spontaneous vaginal delivery): (2) Hepatitis C: QUALIFIERS: Viral hepatitis chronicity: chronic Hepatic coma status: without hepatic coma Qualified Code(s): B18.2 - Chronic viral hepatitis C PLAN: Plan discharge today
--- NOTE | 2024-09-18 06:48 | PCM.DC.SUM ---
Providers Date of Admission: 09/16/24 Date of Discharge: 09/18/24 Primary Care Physician: Dr. Cirilo Saldivar MD Reason For Visit: VAGINAL DELIVERY Diagnosis Discharge Diagnosis (1) (spontaneous vaginal delivery): Status: Acute Code(s): O80 - Encounter for full-term uncomplicated delivery (2) Hepatitis C: Status: Acute Code(s): B19.20 - Unspecified viral hepatitis C without hepatic coma Qualifiers: Viral hepatitis chronicity: chronic Hepatic coma status: without hepatic coma Qualified Code(s): B18.2 - Chronic viral hepatitis C Plan discharge today Medications at Discharge Home Medications vit no.95-ferrous fumarate 28 mg-folic acid 800 mcg tablet () 1 tab PO DAILY 09/16/24 Hospital Course Operations None Procedures None Summary of Care Provided Minutes Spent on Discharge: 20 Physical Exam Const alert and no apparent distress Narrative: Fundus firm, below umbilicus. Weight / BMI Weight Weight: 62.868 kg Body Mass Index (BMI) 25.3 ABG / Lab / Microbiology Data 09/16/24 22:25 D/C Instructions May resume sexual activity in: 6 weeks DC O2, CPAP, BIPAP Needs Home O2 Discharge instructions: No Please Follow Up With: Kimberly Garnica MD When: Follow up with our office in 1-2 and 6 weeks or as needed. [phone] Meaningful Use Info Meaningful Use Meaningful Use Diagnoses (Choose all that apply): None applicable Ischemic Stroke Statin Dosing Therapy Reference: STATIN DOSE THERAPY REFERENCE: * Patients > 75 years receive moderate or high dose statin therapy. * Patients 75 years or YOUNGER should receive HIGH intensity statin dose unless contraindicated. You will be required to document reason for non-treatment if statin daily dose does not meet guidelines. HIGH DOSE STATIN THERAPY DAILY Atorvastatin > than or = to 40 mg Rosuvastatin > than or = to 20 mg Amlodipine + Atorvastatin > than or = to 2.5/40 mg Ezetimibe + Simvastatin 10/80 mg Simvastatin 80mg Discharge Plan Admission Admit Date/Time: 09/16/24 21:58 Primary Reason for Your Visit: labor Attending Provider: Marilee Collins Primary Care Provider: Cirilo Saldivar Discharge Orders/Prescriptions Prescriptions: Continued PNV cmb#95-ferrous fumarate-FA [] 28 mg iron- 800 mcg tablet 1 tab PO DAILY Discontinued aspirin 81 mg tablet,delayed release (DR/EC) 81 mg PO DAILY Referrals / Follow Up: Cirilo Saldivar MD [Primary Care Provider] - Disposition Disposition (needs filled in before D/C Order can be placed): Home, Self Care
[2024-09-18 08:00] VITALS: BP 119/83; PULSE 52; RESP 16; TEMP 36.6
[2024-09-18] MEDS: Etonogestrel 68 MG IMPLANT SC (08:27)
--- NOTE | 2024-09-18 08:27 | OP.PCM_ITS ---
Problems Associated Problem List Diagnoses (1) Nexplanon insertion: Operative Report (Standard) Operative Information Date of Procedure: 09/18/24 Pre-Operative Diagnosis: Request for Nexplanon Post-Operative Diagnosis: Request for Nexplanon Surgery/Procedure Performed: Nexplanon insertion distillery worker general: No Type of Anesthesia: Local Procedure Start Time: 08:10 Procedure Stop Time: 08:20 Select all DRAINS/GRAFTS/IMPLANTS that apply: None Estimated Blood Loss: 0 mL Fluids Replaced: N/A Specimen collected: No Description of surgery: The patient's left arm was prepped in draped in usual sterile fashion. The insertion site was selected 9 cm from the medial epicondyle. 3 mL of 1% lidocaine was injected subcutaneously. The Nexplanon trocar was inserted subcutaneously and the Nexplanon capsule delivered subcutaneously. The Nexplanon trocar was removed from the insertion site. The Nexplanon capsule was palpated by the provider and patient. Steri strips and a pressure dressing were placed. Post procedure care was reviewed with patient. Surgical Findings: None Complications Complications: No Admit VTE Documentation VTE Present on Admission: No
[2024-09-18 08:32] VITALS: BP 119/83; PULSE 52; TEMP 36.6
[2024-09-18] MEDS: Lidocaine 1% (20 ml mdv) 20 ML Vial INFILT (11:28)
== END 2024-09-18 12:30 | disposition home or self-care (01) | DRG 806 ==
PROVIDERS: Admitting Provider Obstetrics & Gynecology; PCP Family Medicine; Visit Provider Obstetrics & Gynecology
DX: O48.0 Post-term pregnancy (principal); Z37.0 Single live birth; O98.42 Viral hepatitis complicating childbirth; B18.2 Chronic viral hepatitis C; F17.210 Nicotine dependence, cigarettes, uncomplicated; Z30.46 Encounter for surveillance of implantable subdermal contraceptive; Z3A.41 41 weeks gestation of pregnancy; O99.334 Smoking (tobacco) complicating childbirth
CPT/HCPCS: 59025; 59050; 80307; 85025; 86780; 86850; 86900; 86901; 99221; A4216; G0378